=== PATIENT | male | born 1955 | race Caucasian/White ===

== ENCOUNTER 2017-06-18 14:30 | Inpatient (IN) | payer MEDICARE, MEDICAID ==
[2017-06-18 15:28] LABS: Albumin * 3.9 gm/dl (3.4-5.0); Anion Gap 24.6 mmol/L (6.8-13.8); BUN/Creatinine Ratio 32.6 (9.0-21.6); Bilirubin, Total 0.6 mg/dL (0.0-1.1); Ca. Corrected For Albumin 9.1 mg/dL (8.4-10.2); Calcium * 9.3 mg/dL (7.9-10.9); Carbon Dioxide 17.2 mmol/L (24-32.6); Total Protein 7.5 gm/dL (6.2-8.2)
[2017-06-18 15:44] LABS: Potassium 6.8 mmol/L (3.4-4.6)
[2017-06-18 15:47] LABS: Urine Bilirubin Negative (NEGATIVE); Urine Blood Negative /ul (NEGATIVE); Urine Ketone 15 mg/dL (NEGATIVE); Urine Nitrite Negative (NEGATIVE); Urine Protein Negative (NEGATIVE); Urine Specific Gravity <=1.005 SP.GR. (1.005-1.030); Urine Urobilinogen Normal (NORMAL)
[2017-06-18] MEDS ORDERED: INSULIN REGULAR, HUMAN 100 UNITS/ML VIAL IV ONE ×2 (15:51→18:24)
[2017-06-18] MEDS ORDERED: INSULIN REGULAR HUMAN REC 100 UNITS in NORMAL SALINE 100 ML IV PRN (15:51)
[2017-06-18] MEDS ORDERED: ALBUTEROL SULFATE 2.5 MG/0.5 ML VIAL.NEB IH SCH (16:00)
[2017-06-18] MEDS ORDERED: ALBUTEROL SULFATE 2.5 MG/0.5 ML VIAL.NEB IH ONE (16:04)
[2017-06-18] MEDS ORDERED: INSULIN REGULAR, HUMAN 100 UNITS/ML VIAL ONE (16:05)
[2017-06-18] MEDS ORDERED: SODIUM POLYSTYRENE SULFON/SORB 15 G/60 ML BTL ONE (16:05)
[2017-06-18 16:09] LABS: Urine Appearance Clear; Urine Bacteria 3+; Urine Color Yellow; Urine RBC 0-5 /hpf (0-5); Urine WBC 0-5 /hpf (0-5)
[2017-06-18] MEDS: SODIUM POLYSTYRENE SULFON/SORB 15 G/60 ML BTL PO ONE ×2 (16:22→16:25)
[2017-06-18] MEDS: NORMAL SALINE 1,000 ML IV ONE ×2 (16:25→17:18)
[2017-06-18] MEDS ORDERED: NORMAL SALINE 1,000 ML IV ONE ×3 (17:18→20:33)
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
[2017-06-18 19:47] LABS: Anion Gap 19.8 mmol/L (6.8-13.8); BUN/Creatinine Ratio 38.7 (9.0-21.6); Calcium * 8.2 mg/dL (7.9-10.9); Carbon Dioxide 13.9 mmol/L (24-32.6); Estimated Creat Clear 42.4; Potassium 4.7 mmol/L (3.4-4.6)
--- NOTE | 2017-06-18 19:54 | HP ---
Chief Complaint - Chief Complaint Date of Service: 06/18/17 Time of Service: 19:42 Chief Complaint: nausea, vomiting History of Present Illness: 62 years old white male came to the ER with reports of nausea and vomiting, he was admitted with DKA and gastroenteritis. PMH significant for Myelodysplastic syndrome, anemia ( Last transfusion Apr 2017), developmental disability, anxiety , muscle pain and prediabetic ( 04/03/17 Last BG 259mg/dl) . pt with developmental disability and poor historian. Information obtained from care home records and brother who was at the bedside. Per brother he was told by care home caregiver that patient was nauseated and vomiting overnight, he was brought to the clinic for a schedule lab test and blood glucose was 1199mg/Dl and K+ 6.8. pt also appear to be confused and was sent to the ER. In ER CT head no acute intra-cranial abnormality, he was given IVF bolus, insulin bolus and initiated Insulin drip. Plan of care discussed with pt brother he verbalized understanding and agrees. - Patient's Past Medical History Patient History - Medical: Anemia, Anxiety, Arthritis, GERD, Hypothyroidism, Osteoarthritis, Seizures - Diagnoses age 11yrs old no episodes in several years, Other - iron overload due to repeated RBC transfusion most recent apr 2017, Urethral stenosis Patient History - Cardiac/Respiratory: No pertinent hx Patient History - Cancer: No Hx of Cancer Patient History - Surgical Procedures: Colonoscopy, EGD Patient History - Other: None - Family History Mother Family History - Medical: Family History - Cardiac/Respiratory: Coronary Heart Disease, Hypertension, Hyperlipidemia Family History - Cancer: No pertinent family hx Father Family History - Medical: , No pertinent hx Family History - Cardiac/Respiratory: Hypertension Family History - Cancer: No pertinent family hx Sister Family History - Cardiac/Respiratory: Aneurysm - Social History Living Situations: other - penitentiary Abuse History: No History of abuse Psych History: Hx of Anxiety Smoking Status: Never smoker Have you smoked in the past 12 months: No Do you dip or chew tobacco: No Patient requests Smoking Cessation Consult: No Alcohol Use: none Drug Use: none - Immunizations Immunizations Up to Date: Yes Review Of Systems (GEN) - Review of Systems Generalized/Overall Review: Present: Weakness EENTM: Present: Other - left ear [place] Respiratory: Present: No Symptoms Reported Cardiac: Present: No Symptoms Reported Abdominal: Present: Nausea Genitourinary: Present: Hesitancy Musculoskeletal: Present: Muscle Pain Neurological: Present: No Symptoms Reported Skin: Present: No Symptoms Reported Immunizations: IMMUNIZATION HX Immunizations Up to Date Yes Allergies/Adverse Reactions: Allergies Allergy/AdvReac Type Severity Reaction Status Date / Time codeine [Codeine] Allergy Unknown Verified 03/26/16 12:29 hydrocodone [Hydrocodone] Allergy Unknown Verified 03/26/16 12:29 morphine Allergy Unknown Verified 03/26/16 12:29 NSAIDS (Non-Steroidal Allergy Unknown Verified 03/26/16 12:29 Anti-Inflamma Opioids - Morphine Analogues Allergy Unknown Verified 03/26/16 12:29 [Opioids-Morphine & Related] oxycodone [Oxycodone] Allergy Unknown Verified 03/26/16 12:29 quinine Allergy Unknown Verified 03/26/16 12:29 risperidone [From Risperdal] Allergy Unknown Verified 03/26/16 12:29 thioridazine HCl Allergy Unknown Verified 03/26/16 12:29 [From Mellaril] aspirin AdvReac Mild REFLUX Verified 03/26/16 12:29 Sulfa (Sulfonamide AdvReac Mild rash Verified 03/26/16 12:29 Antibiotics) [Sulfa(Sulfonamide Antibiotics)] sulfamethoxazole AdvReac Mild RASH Verified 03/26/16 12:29 [From Bactrim] trimethoprim [From Bactrim] AdvReac Mild RASH Verified 03/26/16 12:29 Home Medications: HOME MEDICATIONS Carbamazepine [Carbatrol] 400 mg PO BID 04/14/13 [Last Taken 03/10/16] Docusate Sodium [Stool Softener] 100 mg PO BID 04/14/13 [Last Taken 03/10/16] Folic Acid 1 mg PO DAILY 04/14/13 [Last Taken 03/10/16] PARoxetine HCL [Paxil] 40 mg PO DAILY 04/14/13 [Last Taken 03/10/16] Phenytoin Sodium Extended [Dilantin] 200 mg PO BIDWM 04/14/13 [Last Taken ] Atorvastatin Calcium [Lipitor] 40 mg PO HS 11/25/14 [Last Taken 03/09/16] Buspirone HCl 15 mg PO BID 11/25/14 [Last Taken 03/10/16] Omeprazole [Prilosec] 40 mg PO BID 11/25/14 [Last Taken 03/10/16] QUEtiapine FUMARATE [Seroquel] 25 mg PO QAM 11/25/14 [Last Taken 03/10/16] Doxepin HCl [Sinequan] 20 mg PO HS #60 cap 11/07/15 [Last Taken 03/09/16] Propranolol HCl [Inderal LA] 120 mg PO DAILY #30 cap 11/07/15 [Last Taken ] QUEtiapine FUMARATE [Seroquel] 75 mg PO HS 03/10/16 [Last Taken 03/09/16] Levothyroxine Sodium [Synthroid] 50 mcg PO DAILY@0700 tablet 03/15/16 [Last Taken Unknown] Methenamine Mandelate [Urex] 1 gm PO BID tablet 03/15/16 [Last Taken Unknown] Alendronate Sodium [Fosamax] 70 mg PO .WEEKLY 06/18/17 [Last Taken Unknown] Deferasirox [Jadenu] 360 mg PO BID 06/18/17 [Last Taken Unknown] Lisinopril/Hydrochlorothiazide [Lisinopril-Hctz 10-12.5 mg Tab] 5 mg PO DAILY [Last Taken Unknown] Exam - Exam Vital Signs: Vital Signs - Last Taken Temp 36.7 C 06/18/17 19:00 Pulse 64 06/18/17 19:00 Resp 13 06/18/17 19:00 BP 105/45 06/18/17 19:00 Pulse Ox 94 06/18/17 16:15 Constitutional: Present: Alert, Cooperative, No distress, Morbidly obese, Looks Older than stated age ENT Exam: Present: hard of hearing Eye Exam: bilateral eye: normal inspection Neck: Present: full range of motion Back Exam: Present: normal inspection Breasts: Present: Exam deferred Respiratory: Present: chest non-tender, lungs clear, normal breath sounds, no respiratory distress Cardiovascular/Chest: Present: normal peripheral pulses, regular rate, rhythm, no chest tenderness, no edema, systolic murmur Peripheral Pulses: dorsalis-pedis (R): 3+, dorsalis-pedis (L): 3+ Abdomen: Present: Normal bowel sounds, soft, nontender, nondistended, no rebound tenderness, no hepatospenomegaly, no masses, obese /Rectal: Present: Exam deferred Extremity: Present: normal range of motion, non-tender, normal inspection, no pedal edema, no calf tenderness Skin Exam: Present: warm/dry Lymphatic: Present: no adenopathy Neurologic: Present: alert, other - exciteable. Appearance: Present: disheveled Thoughts: Present: no apparent hallucination Diagnostic Studies: Abnormal Lab Results 06/18/17 Range/Units 17:15 Random Glucose 1209 H* (70-110) mg/dL Laboratory Results pCO2 31.8 mmHg (35.0-48.0) L 06/18/17 16:30 pO2 78.2 mmHg (83.0-108.0) L 06/18/17 16:30 HCO3 13.1 mmol/L (21.0-28.0) L 06/18/17 16:30 Total CO2 14.1 mmol/L (19.0-24.0) L 06/18/17 16:30 Base Excess -13.3 mmol/L (-2.0-3.0) L 06/18/17 16:30 ABG pH 7.23 (7.35-7.45) L 06/18/17 16:30 ABG O2 Sat (Measured) 93.5 % (94.0-98.0) L 06/18/17 16:30 Sodium 131 mmol/L (132-142) L 06/18/17 13:38 Plasma Sodium 149 mmol/L (130-142) H 06/18/17 13:38 Potassium 6.8 mmol/L (3.4-4.6) H* 06/18/17 13:38 Chloride 96 mmol/L (97-106) L 06/18/17 13:38 Carbon Dioxide 17.2 mmol/L (24-32.6) L 06/18/17 13:38 Anion Gap 24.6 mmol/L (6.8-13.8) H 06/18/17 13:38 BUN 58 mg/dL (6-23) H 06/18/17 13:38 Creatinine 1.78 mg/dL (0.4-1.4) H 06/18/17 13:38 Est GFR (Non-Af Amer) 42 mL/min (60-130) L D 06/18/17 13:38 BUN/Creatinine Ratio 32.6 (9.0-21.6) H 06/18/17 13:38 Random Glucose 1209 mg/dL (70-110) H* 06/18/17 17:15 Calcium 9.3 mg/dL (7.9-10.9) 06/18/17 13:38 Calcium Adj for Albumin 9.1 mg/dL (8.4-10.2) 06/18/17 13:38 Total Bilirubin 0.6 mg/dL (0.0-1.1) 06/18/17 13:38 AST 24 U/L (0-48) 06/18/17 13:38 ALT 52 U/L (19-67) 06/18/17 13:38 Alkaline Phosphatase 189 U/L (50-170) H 06/18/17 13:38 Total Protein 7.5 gm/dL (6.2-8.2) 06/18/17 13:38 Albumin 3.9 gm/dl (3.4-5.0) 06/18/17 13:38 Urine Color Yellow 06/18/17 15:30 Urine Appearance Clear 06/18/17 15:30 Urine pH 6.0 pH (5.0-7.0) 06/18/17 15:30 Ur Specific [place] <=1.005 SP.GR. (1.005-1.030) 06/18/17 15:30 Urine Protein Negative mg/dL (NEGATIVE) 06/18/17 15:30 Urine Glucose (UA) >=1000 mg/dL (NEGATIVE) H 06/18/17 15:30 Urine Ketones 15 mg/dL (NEGATIVE) 06/18/17 15:30 Urine Blood Negative /ul (NEGATIVE) 06/18/17 15:30 Urine Nitrate Negative (NEGATIVE) 06/18/17 15:30 Urine Bilirubin Negative mg/dl (NEGATIVE) 06/18/17 15:30 Urine Urobilinogen Normal EU/dl (NORMAL) 06/18/17 15:30 Ur Leukocyte Esterase Negative /ul (NEGATIVE) 06/18/17 15:30 Urine RBC 0-5 /hpf (0-5) 06/18/17 15:30 Urine WBC 0-5 /hpf (0-5) 06/18/17 15:30 Ur Epithelial Cells None seen /hpf (0-5) 06/18/17 15:30 Urine Bacteria 3+ (NONE) H 06/18/17 15:30 Urine Culture Comments No culture indicated 06/18/17 15:30 Serum Ketones Positive - 20mg/dl (NEGATIVE) H 06/18/17 13:38 Influenza Type A Ag Negative (NEGATIVE) 06/18/17 15:27 Influenza Type B Ag Negative (NEGATIVE) 06/18/17 15:27 CT Head: No acute changes CT ABD: Abnormal bowel gas pattern suggestive colitis/proctitis Assessment/Plan - Narrative Narrative: DKA On adm BG 1199mg/dl and serum ketones 20 In ER Insulin 10 units Bolus given x2 Aggressive IVF bolus, then NS 0.9% 250ml/hr until adequately diuresis Monitor BMP Q2hr. mag, phos Q6h Telemetry monitoring Acute renal failure- likely due to decreased oral intake and reports of vomiting On adm Bun/ Cre 58/1.78--->60/1.55 continue to monitor and IVF Dehydration Plan same as #2 Hypertension On adm BP 110/63 Continue to monitor VS Myelodysplastic syndrome Pt is followed by major account representative in [place] Anemia SP transfusion Apr 2017 pt is following with Sales Representative [employer] in [place] Code status: GI ppx: protonix VTE ppx:SCD and ambulate Time 50 minutes, previous records reviewed and case discussed with pt brother and Dr Novoa - Assessment/Plan (1) Diabetes mellitus with ketoacidosis and lactic acidosis but without coma Problem: Acute (2) Acute renal failure Problem: Acute Qualifiers: Acute renal failure type: unspecified Qualified Code(s): N17.9 - Acute kidney failure, unspecified (3) Dehydration Problem: Acute (4) Hypertension Problem: Chronic Qualifiers: Hypertension type: essential hypertension Qualified Code(s): I10 - Essential (primary) hypertension (5) Myelodysplasia (myelodysplastic syndrome) Problem: Chronic (6) Anemia Problem: Chronic Qualifiers: 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
[2017-06-18] MEDS ORDERED: ONDANSETRON HCL/PF 2 MG/ML VIAL IV PRN (20:33)
[2017-06-18] MEDS: NORMAL SALINE 1,000 ML IV PRN (20:56)
[2017-06-18] MEDS ORDERED: PANTOPRAZOLE SODIUM 40 MG in NORMAL SALINE 100 ML IV SCH (21:00)
[2017-06-18 21:41] LABS: Anion Gap 17.2 mmol/L (6.8-13.8); BUN/Creatinine Ratio 42.5 (9.0-21.6); Calcium * 8.1 mg/dL (7.9-10.9); Carbon Dioxide 17.4 mmol/L (24-32.6); Estimated Creat Clear 49.1; Potassium 4.6 mmol/L (3.4-4.6)
[2017-06-19 00:40] LABS: Anion Gap 16.2 mmol/L (6.8-13.8); BUN/Creatinine Ratio 45.2 (9.0-21.6); Calcium * 7.9 mg/dL (7.9-10.9); Carbon Dioxide 18.3 mmol/L (24-32.6); Estimated Creat Clear 57.2; Potassium 4.5 mmol/L (3.4-4.6)
[2017-06-19] MEDS: NORMAL SALINE 1,000 ML IV PRN ×2 (01:02→05:05)
[2017-06-19 02:24] LABS: Anion Gap 13.9 mmol/L (6.8-13.8); BUN/Creatinine Ratio 43.2 (9.0-21.6); Calcium * 7.9 mg/dL (7.9-10.9); Carbon Dioxide 18.1 mmol/L (24-32.6); Estimated Creat Clear 59.3
[2017-06-19 04:22] LABS: BUN/Creatinine Ratio 47.9 (9.0-21.6); Calcium * 7.5 mg/dL (7.9-10.9); Magnesium 1.6 mg/dL (1.2-2.8); Phosphorus 3.7 mg/dL (2.2-4.2)
[2017-06-19 06:26] LABS: Mean Cell Volume 107.3 fl (78-100); Mean Corpuscular Hemoglobin 34.8 pg (27-31); Mean Corpuscular Hgb Conc 32.4 g/dl (32-36); Mean Platelet Volume 9.8 fl (6.0-9.5); Platelet Count 422 K/mm3 (150-450); Red Blood Count 1.64 M/mm3 (4.7-6.0); Red Cell Distribution Width 24.8 % (11.5-14.0); White Blood Count 6.8 K/mm3 (4.0-10.5)
[2017-06-19 06:31] LABS: Hematocrit 17.6 % (42.0-52.0); Hemoglobin 5.7 gm/dL (13.5-18.0)
[2017-06-19] MEDS ORDERED: ACETAMINOPHEN 325 MG TABLET PO PRN (06:31)
[2017-06-19] MEDS ORDERED: diphenhydrAMINE HCL 50 MG/ML VIAL IV PRN (06:31)
[2017-06-19] MEDS ORDERED: FUROSEMIDE 10 MG/ML VIAL IV PRN (06:31)
[2017-06-19 06:32] LABS: Total Cells Counted 100
[2017-06-19 06:34] LABS: BUN/Creatinine Ratio 45.1 (9.0-21.6); Calcium * 7.2 mg/dL (7.9-10.9); Carbon Dioxide 17.6 mmol/L (24-32.6); Estimated Creat Clear 72.3; Potassium 3.6 mmol/L (3.4-4.6)
[2017-06-19] MEDS: 0.5 NORMAL SALINE 1,000 ML IV PRN ×2 (06:43→10:57)
[2017-06-19 06:53] LABS: Anisocytosis 3+; Band 24 % (0-2.0); Eosinophil 4 % (0-3); Hypochromia 2+; Immature Granulocyte 1 (0-1); Lymphocyte 12 % (20-51); Macrocytosis 2+; Neutrophil 59 % (42-75); Platelet Estimate Normal (NORMAL)
[2017-06-19] MEDS: busPIRone HCL 5 MG TABLET PO SCH ×2 (08:16→20:08)
[2017-06-19] MEDS: LEVOTHYROXINE SODIUM 50 MCG TABLET PO SCH (08:16)
[2017-06-19] MEDS: PROPRANOLOL HCL 60 MG CAPSULE.SA PO SCH (08:17)
[2017-06-19] MEDS: PHENYTOIN SODIUM EXTENDED 100 MG CAPSULE PO SCH ×2 (08:17→16:25)
[2017-06-19] MEDS: FOLIC ACID 1 MG TABLET PO SCH (08:17)
[2017-06-19] MEDS: HYDROCHLOROTHIAZIDE 12.5 MG CAPSULE PO SCH (08:17)
[2017-06-19] MEDS: DOCUSATE SODIUM 100 MG CAPSULE PO SCH ×2 (08:17→20:07)
[2017-06-19] MEDS: METHENAMINE MANDELATE 1 GM TABLET PO SCH ×2 (08:18→20:09)
[2017-06-19] MEDS: QUEtiapine FUMARATE 25 MG TABLET PO SCH ×2 (08:18→20:08)
[2017-06-19] MEDS: PANTOPRAZOLE SODIUM 40 MG TABLET.EC PO SCH ×2 (08:18→20:07)
[2017-06-19] MEDS: PARoxetine HCL 20 MG TABLET PO SCH (08:18)
[2017-06-19] MEDS: LISINOPRIL 10 MG TABLET PO SCH (08:18)
[2017-06-19] MEDS: carBAMazepine 200 MG TABLET PO SCH ×2 (08:18→20:09)
[2017-06-19] MEDS ORDERED: NON-FORMULARY 1 DOSE DOSE (Lisinopril/Hydrochlorothiazide [Lisinopril-Hctz 10-12.5 Mg Tab] PO SCH (09:00)
[2017-06-19 10:27] LABS: BUN/Creatinine Ratio 40.9 (9.0-21.6); Calcium * 7.4 mg/dL (7.9-10.9); Carbon Dioxide 17.5 mmol/L (24-32.6); Estimated Creat Clear 74.7; Potassium 3.5 mmol/L (3.4-4.6)
[2017-06-19 10:32] LABS: Hemoglobin A1C 12.3 % (4.00-6.0)
[2017-06-19] MEDS: DEFERASIROX 360 MG PO SCH ×2 (11:19→20:10)
[2017-06-19] MEDS: POTASSIUM CHLORIDE 20 MEQ in DEXTROSE 5%-0.5 NORMAL SALINE 1,000 ML IV SCH (13:10)
[2017-06-19] MEDS: CALCIUM POLYCARBOPHIL 625 MG TABLET PO SCH ×2 (13:12→16:26)
[2017-06-19 14:29] LABS: BUN/Creatinine Ratio 34.4 (9.0-21.6); Carbon Dioxide 18.4 mmol/L (24-32.6); Estimated Creat Clear 73.1; Potassium 3.4 mmol/L (3.4-4.6)
[2017-06-19 18:24] LABS: Anion Gap 14.5 mmol/L (6.8-13.8); BUN/Creatinine Ratio 27.7 (9.0-21.6); Calcium * 7.3 mg/dL (7.9-10.9); Carbon Dioxide 18.9 mmol/L (24-32.6); Estimated Creat Clear 65.1; Potassium 3.4 mmol/L (3.4-4.6)
[2017-06-19] MEDS: ATORVASTATIN CALCIUM 40 MG TABLET PO SCH (20:08)
[2017-06-19] MEDS: TOPIRAMATE 50 MG TABLET PO SCH (20:08)
[2017-06-19] MEDS: DOXEPIN HCL 10 MG CAPSULE PO SCH (20:09)
--- NOTE | 2017-06-19 20:22 | PN ---
Subjective - Date and Time Seen Date: 06/19/17 Time: 20:00 Subjective Narrative: patient seen today sitting up in chair, pt stated he was feeling much better and his belly wasn't hurting and no longer nauseated. Objective - Review of Systems Generalized/Overall Review: Reports: No Symptoms Reported EENTM: Reports: No Symptoms Reported Respiratory: Reports: No Symptoms Reported Cardiac: Reports: No Symptoms Reported Abdominal: Reports: Nausea Genitourinary Symptoms: Reports: No Symptoms Reported Musculoskeletal Complaints: Reports: No Symptoms Reported Neurological: Reports: Other - excitability Skin: Reports: No Symptoms Reported Endocrine: Reports: No Symptoms Reported - Vitals Vitals: Last Vital Signs Temp 36.7 C 06/19/17 19:14 Pulse 72 06/19/17 19:14 Resp 18 06/19/17 19:14 BP 139/55 06/19/17 19:14 Pulse Ox 97 06/19/17 19:14 - Abnormal Lab Findings Abnormal Lab Findings: Abnormal Lab Results 06/18/17 06/19/17 06/19/17 Range/Units 21:22 00:24 02:00 RBC (4.7-6.0) M/mm3 Hgb (13.5-18.0) gm/dL Hct (42.0-52.0) % MCV (78-100) fl MCH (27-31) pg RDW (11.5-14.0) % MPV (6.0-9.5) fl Band Neuts % (Manual) (0-2.0) % Lymphocytes % (Manual) (20-51) % Eosinophils % (Manual) (0-3) % Lymphocytes # (Manual) (1.5-3.5) k/mm3 Sodium (132-142) mmol/L Plasma Sodium 144 H 147 H 144 H (130-142) mmol/L Chloride 107 H 112 H 112 H (97-106) mmol/L Carbon Dioxide 17.4 L 18.3 L 18.1 L (24-32.6) mmol/L Anion Gap 17.2 H 16.2 H 13.9 H (6.8-13.8) mmol/L BUN 57 H 52 H 48 H (6-23) mg/dL Est GFR (Non-Af Amer) 58 L (60-130) mL/min BUN/Creatinine Ratio 42.5 H 45.2 H 43.2 H (9.0-21.6) Random Glucose 516 H* 413 H 353 H (70-110) mg/dL Hemoglobin A1c (4.00-6.0) % Calcium (7.9-10.9) mg/dL 06/19/17 06/19/17 06/19/17 Range/Units 04:00 06:05 06:22 RBC 1.64 L (4.7-6.0) M/mm3 Hgb 5.7 L* D (13.5-18.0) gm/dL Hct 17.6 L* D (42.0-52.0) % MCV 107.3 H (78-100) fl MCH 34.8 H (27-31) pg RDW 24.8 H (11.5-14.0) % MPV 9.8 H (6.0-9.5) fl Band Neuts % (Manual) 24 H (0-2.0) % Lymphocytes % (Manual) 12 L (20-51) % Eosinophils % (Manual) 4 H (0-3) % Lymphocytes # (Manual) 0.8 L (1.5-3.5) k/mm3 Sodium 143 H (132-142) mmol/L Plasma Sodium 147 H 145 H (130-142) mmol/L Chloride 112 H 113 H (97-106) mmol/L Carbon Dioxide 18.0 L 17.6 L (24-32.6) mmol/L Anion Gap 17.0 H 15.0 H (6.8-13.8) mmol/L BUN 45 H 41 H (6-23) mg/dL Est GFR (Non-Af Amer) (60-130) mL/min BUN/Creatinine Ratio 47.9 H 45.1 H (9.0-21.6) Random Glucose 332 H 310 H (70-110) mg/dL Hemoglobin A1c (4.00-6.0) % Calcium 7.5 L 7.2 L (7.9-10.9) mg/dL 06/19/17 06/19/17 06/19/17 Range/Units 10:08 10:08 14:15 RBC (4.7-6.0) M/mm3 Hgb (13.5-18.0) gm/dL Hct (42.0-52.0) % MCV (78-100) fl MCH (27-31) pg RDW (11.5-14.0) % MPV (6.0-9.5) fl Band Neuts % (Manual) (0-2.0) % Lymphocytes % (Manual) (20-51) % Eosinophils % (Manual) (0-3) % Lymphocytes # (Manual) (1.5-3.5) k/mm3 Sodium (132-142) mmol/L Plasma Sodium (130-142) mmol/L Chloride 111 H 108 H (97-106) mmol/L Carbon Dioxide 17.5 L 18.4 L (24-32.6) mmol/L Anion Gap 15.0 H 14.0 H (6.8-13.8) mmol/L BUN 36 H 31 H (6-23) mg/dL Est GFR (Non-Af Amer) (60-130) mL/min BUN/Creatinine Ratio 40.9 H 34.4 H (9.0-21.6) Random Glucose 215 H D 309 H D (70-110) mg/dL Hemoglobin A1c 12.3 H (4.00-6.0) % Calcium 7.4 L 7.0 L (7.9-10.9) mg/dL 06/19/17 Range/Units 18:14 RBC (4.7-6.0) M/mm3 Hgb (13.5-18.0) gm/dL Hct (42.0-52.0) % MCV (78-100) fl MCH (27-31) pg RDW (11.5-14.0) % MPV (6.0-9.5) fl Band Neuts % (Manual) (0-2.0) % Lymphocytes % (Manual) (20-51) % Eosinophils % (Manual) (0-3) % Lymphocytes # (Manual) (1.5-3.5) k/mm3 Sodium (132-142) mmol/L Plasma Sodium (130-142) mmol/L Chloride (97-106) mmol/L Carbon Dioxide 18.9 L (24-32.6) mmol/L Anion Gap 14.5 H (6.8-13.8) mmol/L BUN 28 H (6-23) mg/dL Est GFR (Non-Af Amer) (60-130) mL/min BUN/Creatinine Ratio 27.7 H (9.0-21.6) Random Glucose 299 H (70-110) mg/dL Hemoglobin A1c (4.00-6.0) % Calcium 7.3 L (7.9-10.9) mg/dL - Exam Constitutional: Present: Cooperative, No distress, Obese ENT Exam: Present: hearing grossly normal Neck: Present: non-tender, full range of motion, supple, normal inspection Respiratory: Present: chest non-tender, lungs clear, normal breath sounds, no respiratory distress Cardiovascular/Chest: Present: normal peripheral pulses, regular rate, rhythm, no chest tenderness, no edema Abdomen: Present: Normal bowel sounds, soft, nontender, nondistended, no rebound tenderness /Rectal: Present: Exam deferred Extremity: Present: normal range of motion, non-tender, normal inspection, no pedal edema Skin Exam: Present: normal color, warm/dry Neurologic: Present: alert Appearance: Present: appropriate appearance Eye contact: Present: good eye contact, normal speech Thoughts: Present: no apparent hallucination Assessment/Plan Plan Narrative: DKA On adm BG 1199mg/dl and serum ketones 20 In ER kayexalate and Insulin 10 units Bolus given x2 Aggressive IVF bolus, then NS 0.9% 250ml/hr until adequately diuresis Per protocol IVF switched currently KCL 20meq D5 o.45NS Continue with insulin drip, anticipating anion gap closing Monitor BMP Q4hr. Telemetry monitoring Metabolic acidosis- Likely due to DKA Plan same as above Acute renal failure- likely due to decreased oral intake and reports of vomiting On adm Bun/ Cre 58/1.78--->60/1.55 ---->28/1.01 continue to monitor BMP and and continue with IVF Dehydration Plan same as #2 Hypertension On adm BP 110/63---> 139/55 Continue to monitor VS Myelodysplastic syndrome Pt is followed by golf course starter in [place] Acute on chronic Anemia- likely due to hemodilution SP transfusion Apr 2017 pt is following with Reprographics Associate in [place] On adm hgb/ Hct--> 5.7/17.6 Transfusion PRBC and repeat H/H 1hr post transfusion Iron overload- chronic transfusion Continue with home dose of jadenu Code status:Full GI ppx: protonix VTE ppx:SCD and ambulate Time 20 minutes, case discussed with Dr Novoa - Problems/Diagnosis (1) Diabetes mellitus with ketoacidosis and lactic acidosis but without coma Problem: Acute (2) Acute renal failure Problem: Acute Qualifiers: Acute renal failure type: unspecified Qualified Code(s): N17.9 - Acute kidney failure, unspecified (3) Dehydration Problem: Acute (4) Hypertension Problem: Chronic Qualifiers: Hypertension type: essential hypertension Qualified Code(s): I10 - Essential (primary) hypertension (5) Myelodysplasia (myelodysplastic syndrome) Problem: Chronic (6) Anemia Problem: Chronic Qualifiers: 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 (8) Metabolic acidosis Problem: Acute (9) Iron overload due to repeated red blood cell transfusions Problem: Chronic
[2017-06-19 20:36] LABS: Hematocrit 29.3 % (42.0-52.0); Hemoglobin 9.7 gm/dL (13.5-18.0)
[2017-06-19 22:43] LABS: Anion Gap 17.4 mmol/L (6.8-13.8); Calcium * 7.5 mg/dL (7.9-10.9); Estimated Creat Clear 68.5; Potassium 3.4 mmol/L (3.4-4.6)
[2017-06-20 02:59] LABS: Anion Gap 13.5 mmol/L (6.8-13.8); Calcium * 7.1 mg/dL (7.9-10.9); Carbon Dioxide 19.9 mmol/L (24-32.6); Estimated Creat Clear 68.5; Potassium 3.4 mmol/L (3.4-4.6)
[2017-06-20] MEDS ORDERED: INSULIN GLARGINE,HUM.REC.ANLOG 100 UNITS/ML VIAL SC SCH (03:45)
[2017-06-20] MEDS: INSULIN LISPRO 100 UNITS/ML VIAL SC SCH ×4 (08:10→20:54)
[2017-06-20] MEDS: LEVOTHYROXINE SODIUM 50 MCG TABLET PO SCH (08:13)
[2017-06-20] MEDS: CALCIUM POLYCARBOPHIL 625 MG TABLET PO SCH ×3 (08:14→17:33)
[2017-06-20] MEDS: PYRIDOXINE HCL (VITAMIN B6) 25 MG TABLET PO SCH (08:14)
[2017-06-20] MEDS: PHENYTOIN SODIUM EXTENDED 100 MG CAPSULE PO SCH ×2 (08:15→17:34)
[2017-06-20] MEDS: PANTOPRAZOLE SODIUM 40 MG TABLET.EC PO SCH ×2 (08:15→20:38)
[2017-06-20] MEDS: METHENAMINE MANDELATE 1 GM TABLET PO SCH ×2 (08:15→20:37)
[2017-06-20] MEDS: PARoxetine HCL 20 MG TABLET PO SCH (08:15)
[2017-06-20] MEDS: busPIRone HCL 5 MG TABLET PO SCH ×2 (08:15→20:41)
[2017-06-20] MEDS: LIOTHYRONINE SODIUM 5 MCG TABLET PO SCH (08:15)
[2017-06-20] MEDS: carBAMazepine 200 MG TABLET PO SCH ×2 (08:15→20:40)
[2017-06-20] MEDS: HYDROCHLOROTHIAZIDE 12.5 MG CAPSULE PO SCH (08:16)
[2017-06-20] MEDS: PROPRANOLOL HCL 60 MG CAPSULE.SA PO SCH (08:16)
[2017-06-20] MEDS: DOCUSATE SODIUM 100 MG CAPSULE PO SCH ×2 (08:16→20:43)
[2017-06-20] MEDS: TOPIRAMATE 50 MG TABLET PO SCH ×2 (08:17→20:42)
[2017-06-20] MEDS: FOLIC ACID 1 MG TABLET PO SCH (08:17)
[2017-06-20] MEDS: QUEtiapine FUMARATE 25 MG TABLET PO SCH ×2 (08:17→20:39)
[2017-06-20] MEDS: LISINOPRIL 10 MG TABLET PO SCH (08:17)
[2017-06-20] MEDS: MULTIVITAMINS 1 CAP CAPSULE PO SCH (08:17)
[2017-06-20] MEDS: DEFERASIROX 360 MG PO SCH ×2 (08:18→20:46)
[2017-06-20 08:49] LABS: Hematocrit 29.3 % (42.0-52.0); Hemoglobin 9.8 gm/dL (13.5-18.0); Mean Cell Volume 98.7 fl (78-100); Mean Corpuscular Hgb Conc 33.4 g/dl (32-36); Neutrophil # 3.4 K/mm3 (1.3-6.0); Neutrophil % 69.9 % (42-75.0); Platelet Count 326 K/mm3 (150-450); Red Blood Count 2.97 M/mm3 (4.7-6.0); Red Cell Distribution Width 25.3 % (11.5-14.0); White Blood Count 4.8 K/mm3 (4.0-10.5)
[2017-06-20 08:57] LABS: Anion Gap 12.9 mmol/L (6.8-13.8); BUN/Creatinine Ratio 19.4 (9.0-21.6); Calcium * 7.3 mg/dL (7.9-10.9); Carbon Dioxide 20.3 mmol/L (24-32.6); Estimated Creat Clear 63.9; Potassium 3.2 mmol/L (3.4-4.6)
[2017-06-20] MEDS: INSULIN GLARGINE,HUM.REC.ANLOG 100 UNITS/ML VIAL SC SCH ×2 (10:23→20:53)
[2017-06-20] MEDS: GLIMEPIRIDE 4 MG TABLET PO SCH ×2 (10:24→20:42)
[2017-06-20] MEDS: POTASSIUM CHLORIDE 20 MEQ in DEXTROSE 5%-0.5 NORMAL SALINE 1,000 ML IV SCH (10:26)
[2017-06-20] MEDS: Ubidecarenone [Coenzyme Q10] 100 MG PO SCH (10:48)
[2017-06-20 10:57] LABS: Anion Gap 15.1 mmol/L (6.8-13.8); BUN/Creatinine Ratio 18.6 (9.0-21.6); Calcium * 7.3 mg/dL (7.9-10.9); Carbon Dioxide 18.9 mmol/L (24-32.6); Estimated Creat Clear 67.8
[2017-06-20 14:52] LABS: Anion Gap 12.8 mmol/L (6.8-13.8); BUN/Creatinine Ratio 19.4 (9.0-21.6); Calcium * 7.4 mg/dL (7.9-10.9); Carbon Dioxide 19.9 mmol/L (24-32.6); Estimated Creat Clear 70.7; Potassium 3.7 mmol/L (3.4-4.6)
[2017-06-20 19:33] LABS: Anion Gap 15.3 mmol/L (6.8-13.8); BUN/Creatinine Ratio 19.3 (9.0-21.6); Calcium * 7.2 mg/dL (7.9-10.9); Carbon Dioxide 22.1 mmol/L (24-32.6); Estimated Creat Clear 74.7; Potassium 3.4 mmol/L (3.4-4.6)
[2017-06-20] MEDS: DOXEPIN HCL 10 MG CAPSULE PO SCH (20:44)
[2017-06-20] MEDS: ATORVASTATIN CALCIUM 40 MG TABLET PO SCH (20:47)
--- NOTE | 2017-06-20 23:43 | PN ---
Subjective - Date and Time Seen Date: 06/20/17 Time: 23:43 Subjective Narrative: patient seen sitting up in chair , he stated he had a snack and was feeling good. Objective - Review of Systems Generalized/Overall Review: Reports: No Symptoms Reported EENTM: Reports: No Symptoms Reported Respiratory: Reports: No Symptoms Reported Cardiac: Reports: No Symptoms Reported Abdominal: Reports: No Symptoms Reported Genitourinary Symptoms: Reports: No Symptoms Reported Neurological: Reports: No Symptoms Reported Skin: Reports: No Symptoms Reported Endocrine: Reports: No Symptoms Reported - Vitals Vitals: Last Vital Signs Temp 36.4 C L 06/20/17 23:22 Pulse 71 06/20/17 23:22 Resp 16 06/20/17 23:22 BP 135/68 06/20/17 23:22 Pulse Ox 98 06/20/17 23:22 - Abnormal Lab Findings Abnormal Lab Findings: Abnormal Lab Results 06/20/17 06/20/17 06/20/17 Range/Units 02:38 08:45 08:45 RBC 2.97 L (4.7-6.0) M/mm3 Hgb 9.8 L (13.5-18.0) gm/dL Hct 29.3 L (42.0-52.0) % MCH 33.0 H (27-31) pg RDW 25.3 H (11.5-14.0) % MPV 10.0 H (6.0-9.5) fl Immature Gran % (Auto) 0.60 H (0.001-0.429) % Lymphocytes % 15.1 L (20-51) % Eosinophils % 6.6 H (0.0-3.0) % Lymphocytes # 0.7 L (1.5-3.5) k/mm3 Potassium 3.2 L (3.4-4.6) mmol/L Carbon Dioxide 19.9 L 20.3 L (24-32.6) mmol/L Anion Gap (6.8-13.8) mmol/L BUN/Creatinine Ratio 24.0 H (9.0-21.6) Random Glucose 368 H D 439 H (70-110) mg/dL Calcium 7.1 L 7.3 L (7.9-10.9) mg/dL 06/20/17 06/20/17 06/20/17 Range/Units 10:48 14:43 16:38 RBC (4.7-6.0) M/mm3 Hgb (13.5-18.0) gm/dL Hct (42.0-52.0) % MCH (27-31) pg RDW (11.5-14.0) % MPV (6.0-9.5) fl Immature Gran % (Auto) (0.001-0.429) % Lymphocytes % (20-51) % Eosinophils % (0.0-3.0) % Lymphocytes # (1.5-3.5) k/mm3 Potassium 3.0 L (3.4-4.6) mmol/L Carbon Dioxide 18.9 L 19.9 L 22.1 L (24-32.6) mmol/L Anion Gap 15.1 H 15.3 H (6.8-13.8) mmol/L BUN/Creatinine Ratio (9.0-21.6) Random Glucose 260 H D 209 H 235 H (70-110) mg/dL Calcium 7.3 L 7.4 L 7.2 L (7.9-10.9) mg/dL - Exam Constitutional: Present: Alert, Cooperative, No distress ENT Exam: Present: hearing grossly normal Neck: Present: full range of motion Respiratory: Present: chest non-tender, lungs clear, normal breath sounds, no respiratory distress Cardiovascular/Chest: Present: normal peripheral pulses, regular rate, rhythm, no chest tenderness, no gallop, no JVD, no murmur Abdomen: Present: Normal bowel sounds, soft, nontender, nondistended, no rebound tenderness /Rectal: Present: Exam deferred Extremity: Present: normal range of motion, non-tender, normal inspection, no pedal edema, lower extremity edema Skin Exam: Present: normal color, warm/dry, no cyanosis Neurologic: Present: alert, motor weakness Appearance: Present: disheveled Eye contact: Present: good eye contact, normal speech Thoughts: Present: no apparent hallucination Assessment/Plan Plan Narrative: Acute on chronic Anemia- likely due to hemodilution SP transfusion Apr 2017 pt is following with Passenger Screener in [place] On adm hgb/ Hct--> 5.7/17.6 S/P Transfusion PRBC and repeat H/H 1hr post transfusion Iron overload- chronic transfusion Continue with home dose of jadenu DKA- resolved On adm BG 1199mg/dl and serum ketones 20 Anion gap closed, Lantus 10 units SC and D/C insulin drip monitor blood glucouse Q2hrs then AC+HS Initiated on Glimepiride 4mg BID and lantus 15mg BID, continue with sliding scale insulin. Pt was adequately diuresis then IVF D/C Monitor BMP daily Telemetry monitoring Metabolic acidosis- Likely due to DKA- resolved Plan same as above Acute renal failure- Resolved likely due to decreased oral intake and reports of vomiting On adm Bun/ Cre 58/1.78--->60/1.55 ---->28/1.01 D/C IVF Dehydration- resolved Plan same as #2 Hypertension- stable Continue to monitor VS Myelodysplastic syndrome Pt is followed by clinical informaticist in [place] Code status:Full GI ppx: protonix VTE ppx:SCD and ambulate Time 20 minutes, case discussed with Dr Novoa - Problems/Diagnosis (1) Diabetes mellitus with ketoacidosis and lactic acidosis but without coma Problem: Resolved (2) Acute renal failure Problem: Acute Qualifiers: Acute renal failure type: unspecified Qualified Code(s): N17.9 - Acute kidney failure, unspecified (3) Hypertension Problem: Chronic Qualifiers: Hypertension type: essential hypertension Qualified Code(s): I10 - Essential (primary) hypertension (4) Myelodysplasia (myelodysplastic syndrome) Problem: Chronic (5) Anemia Problem: Chronic Qualifiers: Anemia type: bone marrow failure Bone marrow failure anemia type: other bone marrow failure Qualified Code(s): D61.89 - Other specified aplastic anemias and other bone marrow failure syndromes (6) Urethral stenosis Problem: Chronic (7) Metabolic acidosis Problem: Resolved (8) Iron overload due to repeated red blood cell transfusions Problem: Chronic
--- NOTE | 2017-06-21 06:27 | PN ---
Subjective - Date and Time Seen Date: 06/21/17 Time: 06:22 Subjective Narrative: patient was seen today no acute distress, he was cooperative with having his blood drawn. He denies discomfort and stated his feet ever swollen and tender when touched. Objective - Review of Systems Generalized/Overall Review: Reports: No Symptoms Reported EENTM: Reports: No Symptoms Reported Respiratory: Reports: No Symptoms Reported Cardiac: Reports: No Symptoms Reported Abdominal: Reports: No Symptoms Reported Genitourinary Symptoms: Reports: No Symptoms Reported Musculoskeletal Complaints: Reports: Muscle Pain, Other - foot pain Neurological: Reports: No Symptoms Reported Skin: Reports: No Symptoms Reported Endocrine: Reports: No Symptoms Reported - Vitals Vitals: Last Vital Signs Temp 36.4 C L 06/20/17 23:22 Pulse 73 06/21/17 02:00 Resp 16 06/20/17 23:22 BP 135/68 06/20/17 23:22 Pulse Ox 98 06/20/17 23:22 - Abnormal Lab Findings Abnormal Lab Findings: Abnormal Lab Results 06/20/17 06/20/17 06/20/17 Range/Units 08:45 08:45 10:48 RBC 2.97 L (4.7-6.0) M/mm3 Hgb 9.8 L (13.5-18.0) gm/dL Hct 29.3 L (42.0-52.0) % MCH 33.0 H (27-31) pg RDW 25.3 H (11.5-14.0) % MPV 10.0 H (6.0-9.5) fl Immature Gran % (Auto) 0.60 H (0.001-0.429) % Lymphocytes % 15.1 L (20-51) % Eosinophils % 6.6 H (0.0-3.0) % Lymphocytes # 0.7 L (1.5-3.5) k/mm3 Potassium 3.2 L 3.0 L (3.4-4.6) mmol/L Carbon Dioxide 20.3 L 18.9 L (24-32.6) mmol/L Anion Gap 15.1 H (6.8-13.8) mmol/L Random Glucose 439 H 260 H D (70-110) mg/dL Calcium 7.3 L 7.3 L (7.9-10.9) mg/dL 06/20/17 06/20/17 Range/Units 14:43 16:38 RBC (4.7-6.0) M/mm3 Hgb (13.5-18.0) gm/dL Hct (42.0-52.0) % MCH (27-31) pg RDW (11.5-14.0) % MPV (6.0-9.5) fl Immature Gran % (Auto) (0.001-0.429) % Lymphocytes % (20-51) % Eosinophils % (0.0-3.0) % Lymphocytes # (1.5-3.5) k/mm3 Potassium (3.4-4.6) mmol/L Carbon Dioxide 19.9 L 22.1 L (24-32.6) mmol/L Anion Gap 15.3 H (6.8-13.8) mmol/L Random Glucose 209 H 235 H (70-110) mg/dL Calcium 7.4 L 7.2 L (7.9-10.9) mg/dL - Exam Constitutional: Present: Alert, Oriented x3, Cooperative, No distress ENT Exam: Present: normal ENT inspection Neck: Present: full range of motion Breasts: Present: Exam deferred Respiratory: Present: chest non-tender, lungs clear, normal breath sounds, no respiratory distress Cardiovascular/Chest: Present: normal peripheral pulses, regular rate, rhythm, no chest tenderness, no gallop Abdomen: Present: Normal bowel sounds, soft, nontender, nondistended, no rebound tenderness, obese /Rectal: Present: Exam deferred Extremity: Present: normal range of motion, normal inspection, pedal edema, swelling Skin Exam: Present: normal color, warm/dry, no cyanosis Neurologic: Present: alert, other - excitability Eye contact: Present: cooperative, good eye contact Thoughts: Present: no apparent hallucination Assessment/Plan Plan Narrative: Diabetes Will need insulin upon discharge currently on Lantus 15unit BID pt is from [facility] and per attending he will need placement as facility cannot accommodate pt on insulin. Continue with Glimepiride 4mg BID and Lantus 15mg BID, continue with sliding scale insulin. DKA- resolved On adm BG 1199mg/dl and serum ketones 20 Anion gap closed, Lantus 10 units SC and D/C insulin drip monitor blood glucouse Q2hrs then AC+HS Initiated on Glimepiride 4mg BID and lantus 15mg BID, continue with sliding scale insulin. 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 [place] On adm hgb/ Hct--> 5.7/17.6 S/P Transfusion PRBC and repeat H/H 1hr post transfusion CBC in am Iron overload- chronic transfusion Continue with home dose of jadenu Metabolic acidosis- Likely due to DKA- resolved Plan same as above Acute renal failure- Resolved likely due to decreased oral intake and reports of vomiting On adm Bun/ Cre 58/1.78--->60/1.55 ---->28/1.01 D/C IVF Dehydration- resolved Plan same as #2 Hypertension- stable Continue to monitor VS Myelodysplastic syndrome Pt is followed by database marketing specialist in [place] Code status:Full GI ppx: protonix VTE ppx:SCD and ambulate Time 15 minutes, case discussed with Dr Novoa - Problems/Diagnosis (1) Diabetes mellitus with ketoacidosis and lactic acidosis but without coma Problem: Resolved (2) Acute renal failure Problem: Acute Qualifiers: Acute renal failure type: unspecified Qualified Code(s): N17.9 - Acute kidney failure, unspecified (3) Hypertension Problem: Chronic Qualifiers: Hypertension type: essential hypertension Qualified Code(s): I10 - Essential (primary) hypertension (4) Myelodysplasia (myelodysplastic syndrome) Problem: Chronic (5) Anemia Problem: Chronic Qualifiers: Anemia type: bone marrow failure Bone marrow failure anemia type: other bone marrow failure Qualified Code(s): D61.89 - Other specified aplastic anemias and other bone marrow failure syndromes (6) Urethral stenosis Problem: Chronic (7) Metabolic acidosis Problem: Resolved (8) Iron overload due to repeated red blood cell transfusions Problem: Chronic
[2017-06-21] MEDS ORDERED: FUROSEMIDE 10 MG/ML VIAL IV ONE (06:31)
[2017-06-21 06:32] LABS: Anion Gap 14.6 mmol/L (6.8-13.8); BUN/Creatinine Ratio 21.3 (9.0-21.6); Calcium * 7.5 mg/dL (7.9-10.9); Carbon Dioxide 21.6 mmol/L (24-32.6); Estimated Creat Clear 73.9; Hematocrit 27.9 % (42.0-52.0); Hemoglobin 9.3 gm/dL (13.5-18.0); Mean Cell Volume 96.5 fl (78-100); Mean Corpuscular Hemoglobin 32.2 pg (27-31); Mean Corpuscular Hgb Conc 33.3 g/dl (32-36); Mean Platelet Volume 10.2 fl (6.0-9.5); NRBC# 0.1 k/mm3 (0-1); Neutrophil # 3.7 K/mm3 (1.3-6.0); Neutrophil % 70.7 % (42-75.0); Platelet Count 287 K/mm3 (150-450); Potassium 3.2 mmol/L (3.4-4.6); Red Blood Count 2.89 M/mm3 (4.7-6.0); Red Cell Distribution Width 25.2 % (11.5-14.0); White Blood Count 5.2 K/mm3 (4.0-10.5)
[2017-06-21] MEDS: INSULIN LISPRO 100 UNITS/ML VIAL SC SCH ×2 (07:17→11:33)
[2017-06-21] MEDS: LEVOTHYROXINE SODIUM 50 MCG TABLET PO SCH (07:18)
[2017-06-21] MEDS: METHENAMINE MANDELATE 1 GM TABLET PO SCH (08:40)
[2017-06-21] MEDS: FOLIC ACID 1 MG TABLET PO SCH (08:40)
[2017-06-21] MEDS: PYRIDOXINE HCL (VITAMIN B6) 25 MG TABLET PO SCH (08:40)
[2017-06-21] MEDS: LIOTHYRONINE SODIUM 5 MCG TABLET PO SCH (08:40)
[2017-06-21] MEDS: PHENYTOIN SODIUM EXTENDED 100 MG CAPSULE PO SCH (08:40)
[2017-06-21] MEDS: LISINOPRIL 10 MG TABLET PO SCH (08:40)
[2017-06-21] MEDS: DOCUSATE SODIUM 100 MG CAPSULE PO SCH (08:41)
[2017-06-21] MEDS: carBAMazepine 200 MG TABLET PO SCH (08:41)
[2017-06-21] MEDS: PANTOPRAZOLE SODIUM 40 MG TABLET.EC PO SCH (08:41)
[2017-06-21] MEDS: busPIRone HCL 5 MG TABLET PO SCH (08:41)
[2017-06-21] MEDS: QUEtiapine FUMARATE 25 MG TABLET PO SCH (08:41)
[2017-06-21] MEDS: PARoxetine HCL 20 MG TABLET PO SCH (08:41)
[2017-06-21] MEDS: MULTIVITAMINS 1 CAP CAPSULE PO SCH (08:41)
[2017-06-21] MEDS: HYDROCHLOROTHIAZIDE 12.5 MG CAPSULE PO SCH (08:42)
[2017-06-21] MEDS: PROPRANOLOL HCL 60 MG CAPSULE.SA PO SCH (08:42)
[2017-06-21] MEDS: INSULIN GLARGINE,HUM.REC.ANLOG 100 UNITS/ML VIAL SC SCH (08:42)
[2017-06-21] MEDS: GLIMEPIRIDE 4 MG TABLET PO SCH (08:42)
[2017-06-21] MEDS: Ubidecarenone [Coenzyme Q10] 100 MG PO SCH (08:45)
[2017-06-21] MEDS: TOPIRAMATE 50 MG TABLET PO SCH (08:50)
[2017-06-21] MEDS ORDERED: ERGOCALCIFEROL 50000 UNIT TABLET PO SCH (09:00)
[2017-06-21] MEDS: DEFERASIROX 360 MG PO SCH (10:13)
[2017-06-21] MEDS: CALCIUM POLYCARBOPHIL 625 MG TABLET PO SCH (11:32)
[2017-06-21 12:04] VITALS: BP 111/64
--- NOTE | 2017-06-21 13:28 | DS ---
(1) Diabetes mellitus with ketoacidosis and lactic acidosis but without coma Problem: Resolved (2) Type 2 diabetes mellitus Problem: Acute Description of Stay: ADMISSION DATE: 06/18/2017 DISCHARGE DATE: 06/21/2017 ADMISSION HPI by DION Pimentel: 62 years old white male came to the ER with reports of nausea and vomiting, he was admitted with DKA and gastroenteritis. PMH significant for Myelodysplastic syndrome, anemia ( Last transfusion Apr 2017), developmental disability, anxiety , muscle pain and prediabetic ( 04/03/17 Last BG 259mg/dl) . pt with developmental disability and poor historian. Information obtained from residential records and brother who was at the bedside. Per brother he was told by residential caregiver that patient was nauseated and vomiting overnight, he was brought to the clinic for a schedule lab test and blood glucose was 1199mg/Dl and K+ 6.8. pt also appear to be confused and was sent to the ER. In ER CT head no acute intra-cranial abnormality, he was given IVF bolus, insulin bolus and initiated Insulin drip. Plan of care discussed with pt brother he verbalized understanding and agrees. HOSPITAL COURSE: The patient was admitted to the hospital for DKA secondary to severely uncontrolled type 2 diabetes. The patient was treated with aggressive IV fluid hydration and an insulin drip. After his DKA resolved and his anion gap closed , the patient was transitioned to subcutaneous insulin. However, after multiple discussions with the patients staff at his residential ([facility]), it was determined that the patient cannot return home on insulin and so he was started on 3 oral diabetic medications as documented below under new medications. The patient was also given a prescription for a glucometer and all testing supplies. [facility] will check his blood sugars at least once daily in the morning. The patient will need a repeat hemoglobin A1c in approximately 3 months. The patient was discharged back to his residential in stable condition and instructed to follow-up with his primary care physician within one week. FOLLOW-UP APPOINTMENTS: - PCP within 1 week NEW OR CHANGED MEDICATIONS: -Glimepiride 4mg PO BID with meals -Metformin 1000mg PO BID with meals -Januvia 100mg PO daily DISCONTINUED MEDICATIONS: None RADIOLOGY REPORTS: Head CT without contrast on 06/18/2017 showed: No acute intracranial hemorrhage or mass effect. Flat and upright abdominal x-ray on 06/18/2017 showed: Abnormal bowel gas pattern suggestive of colitis/proctitis. Nonspecific dilated loop of sigmoid colon. PA and lateral chest x-ray on 06/18/2017 showed: Hypoventilatory changes. No focal acute finding. The coordination of care and discharge process provided by me on the day of discharge for Marc Edwards was greater than 30 minutes. This time consisted of direct patient care which included counseling, coordinating and discussing the patients multiple medical conditions as well as time spent coordinating and ensuring that the patient had an appropriate discharge plan in place. Procedures Performed: none Results and Findings: Laboratory Tests 06/18/17 06/18/17 06/18/17 13:38 13:38 15:27 WBC RBC Hgb Hct MCV MCH MCHC RDW Plt Count MPV Immature Gran % (Auto) Immature Gran # (Auto) Neutrophils % pCO2 pO2 HCO3 Total CO2 Base Excess ABG pH ABG O2 Sat (Measured) Sodium 131 L Plasma Sodium 149 H Potassium 6.8 H* Chloride 96 L Carbon Dioxide 17.2 L Anion Gap 24.6 H BUN 58 H Creatinine 1.78 H Est GFR (Non-Af Amer) 42 L D BUN/Creatinine Ratio 32.6 H Random Glucose 1199 H* Mean Blood Glucose Hemoglobin A1c Calcium 9.3 Calcium Adj for Albumin 9.1 Phosphorus Magnesium Total Bilirubin 0.6 AST 24 ALT 52 Alkaline Phosphatase 189 H B-Natriuretic Peptide Total Protein 7.5 Albumin 3.9 Urine Color Urine Appearance Urine pH Ur Specific [place] Urine Protein Urine Glucose (UA) Urine Ketones Urine Blood Urine Nitrate Urine Bilirubin Urine Urobilinogen Ur Leukocyte Esterase Urine RBC Urine WBC Ur Epithelial Cells Urine Bacteria Urine Culture Comments Stool Occult Blood Serum Ketones Positive - 20mg/dl H Influenza Type A Ag Negative Influenza Type B Ag Negative 06/18/17 06/18/17 06/18/17 15:30 16:30 17:15 WBC RBC Hgb Hct MCV MCH MCHC RDW Plt Count MPV Immature Gran % (Auto) Immature Gran # (Auto) Neutrophils % pCO2 31.8 L pO2 78.2 L HCO3 13.1 L Total CO2 14.1 L Base Excess -13.3 L ABG pH 7.23 L ABG O2 Sat (Measured) 93.5 L Sodium Plasma Sodium Potassium Chloride Carbon Dioxide Anion Gap BUN Creatinine Est GFR (Non-Af Amer) BUN/Creatinine Ratio Random Glucose 1209 H* Mean Blood Glucose Hemoglobin A1c Calcium Calcium Adj for Albumin Phosphorus Magnesium Total Bilirubin AST ALT Alkaline Phosphatase B-Natriuretic Peptide Total Protein Albumin Urine Color Yellow Urine Appearance Clear Urine pH 6.0 Ur Specific [place] <=1.005 Urine Protein Negative Urine Glucose (UA) >=1000 H Urine Ketones 15 Urine Blood Negative Urine Nitrate Negative Urine Bilirubin Negative Urine Urobilinogen Normal Ur Leukocyte Esterase Negative Urine RBC 0-5 Urine WBC 0-5 Ur Epithelial Cells None seen Urine Bacteria 3+ H Urine Culture Comments No culture indicated Stool Occult Blood Serum Ketones Influenza Type A Ag Influenza Type B Ag 06/18/17 06/18/17 06/19/17 19:22 21:22 00:24 WBC RBC Hgb Hct MCV MCH MCHC RDW Plt Count MPV Immature Gran % (Auto) Immature Gran # (Auto) Neutrophils % pCO2 pO2 HCO3 Total CO2 Base Excess ABG pH ABG O2 Sat (Measured) Sodium 134 137 Plasma Sodium 144 H 144 H Potassium 4.7 H D 4.6 Chloride 105 107 H Carbon Dioxide 13.9 L 17.4 L 18.3 L Anion Gap 19.8 H 17.2 H 16.2 H BUN 60 H 57 H Creatinine 1.55 H 1.34 Est GFR (Non-Af Amer) 49 L 58 L BUN/Creatinine Ratio 38.7 H 42.5 H Random Glucose 717 H* D 516 H* 413 H Mean Blood Glucose Hemoglobin A1c Calcium 8.2 8.1 Calcium Adj for Albumin Phosphorus Magnesium Total Bilirubin AST ALT Alkaline Phosphatase B-Natriuretic Peptide Total Protein Albumin Urine Color Urine Appearance Urine pH Ur Specific [place] Urine Protein Urine Glucose (UA) Urine Ketones Urine Blood Urine Nitrate Urine Bilirubin Urine Urobilinogen Ur Leukocyte Esterase Urine RBC Urine WBC Ur Epithelial Cells Urine Bacteria Urine Culture Comments Stool Occult Blood Serum Ketones Influenza Type A Ag Influenza Type B Ag 06/19/17 06/19/17 06/19/17 02:00 04:00 06:05 WBC RBC Hgb Hct MCV MCH MCHC RDW Plt Count MPV Immature Gran % (Auto) Immature Gran # (Auto) Neutrophils % pCO2 pO2 HCO3 Total CO2 Base Excess ABG pH ABG O2 Sat (Measured) Sodium Plasma Sodium Potassium Chloride Carbon Dioxide 18.1 L 18.0 L 17.6 L Anion Gap 13.9 H 17.0 H 15.0 H BUN Creatinine Est GFR (Non-Af Amer) BUN/Creatinine Ratio Random Glucose 353 H 332 H 310 H Mean Blood Glucose Hemoglobin A1c Calcium Calcium Adj for Albumin Phosphorus 3.7 Magnesium 1.6 Total Bilirubin AST ALT Alkaline Phosphatase B-Natriuretic Peptide Total Protein Albumin Urine Color Urine Appearance Urine pH Ur Specific [place] Urine Protein Urine Glucose (UA) Urine Ketones Urine Blood Urine Nitrate Urine Bilirubin Urine Urobilinogen Ur Leukocyte Esterase Urine RBC Urine WBC Ur Epithelial Cells Urine Bacteria Urine Culture Comments Stool Occult Blood Serum Ketones Influenza Type A Ag Influenza Type B Ag 06/19/17 06/19/17 06/19/17 06:22 10:08 10:08 WBC 6.8 RBC 1.64 L Hgb 5.7 L* D Hct 17.6 L* D MCV 107.3 H MCH 34.8 H MCHC 32.4 RDW 24.8 H Plt Count 422 MPV 9.8 H Immature Gran % (Auto) Immature Gran # (Auto) Neutrophils % pCO2 pO2 HCO3 Total CO2 Base Excess ABG pH ABG O2 Sat (Measured) Sodium Plasma Sodium Potassium Chloride Carbon Dioxide 17.5 L Anion Gap 15.0 H BUN Creatinine Est GFR (Non-Af Amer) BUN/Creatinine Ratio Random Glucose 215 H D Mean Blood Glucose 324 Hemoglobin A1c 12.3 H Calcium Calcium Adj for Albumin Phosphorus Magnesium Total Bilirubin AST ALT Alkaline Phosphatase B-Natriuretic Peptide Total Protein Albumin Urine Color Urine Appearance Urine pH Ur Specific [place] Urine Protein Urine Glucose (UA) Urine Ketones Urine Blood Urine Nitrate Urine Bilirubin Urine Urobilinogen Ur Leukocyte Esterase Urine RBC Urine WBC Ur Epithelial Cells Urine Bacteria Urine Culture Comments Stool Occult Blood Serum Ketones Influenza Type A Ag Influenza Type B Ag 06/19/17 06/19/17 06/19/17 14:15 18:14 22:00 WBC RBC Hgb Hct MCV MCH MCHC RDW Plt Count MPV Immature Gran % (Auto) Immature Gran # (Auto) Neutrophils % pCO2 pO2 HCO3 Total CO2 Base Excess ABG pH ABG O2 Sat (Measured) Sodium Plasma Sodium Potassium Chloride Carbon Dioxide 18.4 L 18.9 L 18.0 L Anion Gap 14.0 H 14.5 H 17.4 H BUN Creatinine Est GFR (Non-Af Amer) BUN/Creatinine Ratio Random Glucose 309 H D 299 H 255 H Mean Blood Glucose Hemoglobin A1c Calcium 7.3 L 7.5 L Calcium Adj for Albumin Phosphorus Magnesium Total Bilirubin AST ALT Alkaline Phosphatase B-Natriuretic Peptide Total Protein Albumin Urine Color Urine Appearance Urine pH Ur Specific [place] Urine Protein Urine Glucose (UA) Urine Ketones Urine Blood Urine Nitrate Urine Bilirubin Urine Urobilinogen Ur Leukocyte Esterase Urine RBC Urine WBC Ur Epithelial Cells Urine Bacteria Urine Culture Comments Stool Occult Blood Serum Ketones Influenza Type A Ag Influenza Type B Ag 06/20/17 06/20/17 06/20/17 02:38 08:45 10:48 WBC RBC Hgb Hct MCV MCH MCHC RDW Plt Count MPV Immature Gran % (Auto) Immature Gran # (Auto) Neutrophils % pCO2 pO2 HCO3 Total CO2 Base Excess ABG pH ABG O2 Sat (Measured) Sodium Plasma Sodium Potassium 3.4 3.2 L 3.0 L Chloride Carbon Dioxide 19.9 L 20.3 L 18.9 L Anion Gap 13.5 12.9 15.1 H BUN Creatinine Est GFR (Non-Af Amer) BUN/Creatinine Ratio Random Glucose 368 H D 439 H 260 H D Mean Blood Glucose Hemoglobin A1c Calcium Calcium Adj for Albumin Phosphorus Magnesium Total Bilirubin AST ALT Alkaline Phosphatase B-Natriuretic Peptide Total Protein Albumin Urine Color Urine Appearance Urine pH Ur Specific [place] Urine Protein Urine Glucose (UA) Urine Ketones Urine Blood Urine Nitrate Urine Bilirubin Urine Urobilinogen Ur Leukocyte Esterase Urine RBC Urine WBC Ur Epithelial Cells Urine Bacteria Urine Culture Comments Stool Occult Blood Serum Ketones Influenza Type A Ag Influenza Type B Ag 06/20/17 06/20/17 06/21/17 14:43 16:38 01:08 WBC RBC Hgb Hct MCV MCH MCHC RDW Plt Count MPV Immature Gran % (Auto) Immature Gran # (Auto) Neutrophils % pCO2 pO2 HCO3 Total CO2 Base Excess ABG pH ABG O2 Sat (Measured) Sodium Plasma Sodium Potassium 3.7 D 3.4 Chloride Carbon Dioxide 19.9 L 22.1 L Anion Gap 12.8 15.3 H BUN Creatinine Est GFR (Non-Af Amer) BUN/Creatinine Ratio Random Glucose 209 H 235 H Mean Blood Glucose Hemoglobin A1c Calcium Calcium Adj for Albumin Phosphorus Magnesium Total Bilirubin AST ALT Alkaline Phosphatase B-Natriuretic Peptide Total Protein Albumin Urine Color Urine Appearance Urine pH Ur Specific [place] Urine Protein Urine Glucose (UA) Urine Ketones Urine Blood Urine Nitrate Urine Bilirubin Urine Urobilinogen Ur Leukocyte Esterase Urine RBC Urine WBC Ur Epithelial Cells Urine Bacteria Urine Culture Comments Stool Occult Blood Negative Serum Ketones Influenza Type A Ag Influenza Type B Ag 06/21/17 06/21/17 06/21/17 06:00 06:20 06:20 WBC 5.2 RBC 2.89 L Hgb 9.3 L Hct 27.9 L MCV 96.5 MCH 32.2 H MCHC 33.3 RDW 25.2 H Plt Count 287 MPV 10.2 H Immature Gran % (Auto) 1.00 H Immature Gran # (Auto) 0.05 H Neutrophils % 70.7 pCO2 pO2 HCO3 Total CO2 Base Excess ABG pH ABG O2 Sat (Measured) Sodium 138 Plasma Sodium 139 Potassium 3.2 L Chloride 105 Carbon Dioxide 21.6 L Anion Gap 14.6 H BUN 19 Creatinine 0.89 Est GFR (Non-Af Amer) 93 BUN/Creatinine Ratio 21.3 Random Glucose 185 H Mean Blood Glucose Hemoglobin A1c Calcium 7.5 L Calcium Adj for Albumin Phosphorus Magnesium Total Bilirubin AST ALT Alkaline Phosphatase B-Natriuretic Peptide 258 H Total Protein Albumin Urine Color Urine Appearance Urine pH Ur Specific [place] Urine Protein Urine Glucose (UA) Urine Ketones Urine Blood Urine Nitrate Urine Bilirubin Urine Urobilinogen Ur Leukocyte Esterase Urine RBC Urine WBC Ur Epithelial Cells Urine Bacteria Urine Culture Comments Stool Occult Blood Serum Ketones Influenza Type A Ag Influenza Type B Ag Discharge Disposition: Home self care Disposition: Home self-care Condition: Stable Discharge Activity: Activity as tolerated Discharge Diet: Consistent carbs Problem Oriented Discharge Instructions to Patient/Family: Hyperglycemia, Easy- to-Read, Type 2 Diabetes Mellitus, Adult, [id number] Additional Patient Instructions (free text): Please make TCM appointment unless intermediate discharge. Thank you! Marixa @ ext: [phone]. Follow up with Patricia Powell on 10:45am. on 07-03-172017 in the Clinic. Check blood sugars BID. Please record and take to f/u appointment with PCP. Please make copies of diabetic diet for sister and brother. Follow-up with PCP within 1 week Prescriptions (Any new or edited meds): Glimepiride [Amaryl] 4 mg PO BIDAC #60 tablet metFORMIN HCL [Metformin HCl ER] 1,000 mg PO BIDAC #120 tab.er.24h sitaGLIPtin PHOSPHATE [Januvia] 100 mg PO DAILY #30 tab Complete Home Medications List: Complete Home Medication List: Carbamazepine [Carbatrol] 400 mg PO BID 04/14/13 Docusate Sodium [Stool Softener] 100 mg PO BID 04/14/13 Folic Acid 1 mg PO DAILY 04/14/13 PARoxetine HCL [Paxil] 60 mg PO HS 04/14/13 Phenytoin Sodium Extended [Dilantin] 200 mg PO BIDWM 04/14/13 Atorvastatin Calcium [Lipitor] 40 mg PO HS 11/25/14 Buspirone HCl 15 mg PO BID 11/25/14 Omeprazole [Prilosec] 40 mg PO BID 11/25/14 QUEtiapine FUMARATE [Seroquel] 25 mg PO QAM 11/25/14 Doxepin HCl [Sinequan] 20 mg PO HS #60 cap 11/07/15 Propranolol HCl [Inderal LA] 120 mg PO DAILY #30 cap 11/07/15 QUEtiapine FUMARATE [Seroquel] 75 mg PO HS 03/10/16 Levothyroxine Sodium [Synthroid] 50 mcg PO DAILY@0700 tablet 03/15/16 Methenamine Mandelate [Urex] 1 gm PO BID tablet 03/15/16 Alendronate Sodium [Fosamax] 70 mg PO .WEEKLY 06/18/17 Deferasirox [Jadenu] 360 mg PO BID 06/18/17 Lisinopril/Hydrochlorothiazide [Lisinopril-Hctz 10-12.5 mg Tab] 5 mg PO DAILY Calcium Polycarbophil [Fiber Laxative] 1,250 mg PO TID 06/19/17 Ergocalciferol (Vitamin D2) [Vitamin D2] 50,000 unit PO .WEEKLY 06/19/17 Liothyronine Sodium [Cytomel] 5 mcg PO DAILY 06/19/17 Multivitamin [One Daily Multivitamin] 1 cap PO DAILY 06/19/17 Pyridoxine HCl [Vitamin B-6] 50 mg PO DAILY 06/19/17 Topiramate [Topamax] 100 mg PO BID 06/19/17 Ubidecarenone [Coenzyme Q10] 100 mg PO DAILY 06/19/17 Glimepiride [Amaryl] 4 mg PO BIDAC #60 tablet 06/21/17 metFORMIN HCL [Metformin HCl ER] 1,000 mg PO BIDAC #120 tab.er.24h 06/21/17 sitaGLIPtin PHOSPHATE [Januvia] 100 mg PO DAILY #30 tab 06/21/17
== END 2017-06-21 15:48 | disposition home or self-care (01) | DRG 637 ==
LOC: ER 14:30 → SCU 17:14 → MS 06-19 15:45
PROVIDERS: ADMIT Internal Medicine; ATTEND Internal Medicine
PROC: 4A033R1 Measurement of Arterial Saturation, Peripheral, Percutaneous Approach (ICD-10-PCS; principal; 2017-06-18)
PROC: 30263N1 (ICD-10-PCS; 2017-06-21)
DX: E11.10 Type 2 diabetes mellitus with ketoacidosis without coma (principal); D61.89 Other specified aplastic anemias and other bone marrow failure syndromes; N17.9 Acute kidney failure, unspecified; D46.9 Myelodysplastic syndrome, unspecified; E86.0 Dehydration; I10 Essential (primary) hypertension; E03.9 Hypothyroidism, unspecified

== ENCOUNTER 2017-06-26 14:50 | Inpatient (IN) | payer MEDICARE, MEDICAID ==
--- NOTE | 2017-06-26 15:54 | ERNOTE ---
Date of Service: 06/26/17 Time Seen by Provider: 06/26/17 15:52 Stated Complaint: COUGH/WEAKNESS/DIARRHEA Source: patient, family, RN notes reviewed, past records Exam Limitations: other - confusion Immunizations: IMMUNIZATION HX Immunizations Up to Date Yes History of Influenza Vaccine Yes Allergies/Adverse Reactions: Allergies codeine [Codeine] Allergy (Unknown, Verified 03/26/16 12:29) hydrocodone [Hydrocodone] Allergy (Unknown, Verified 03/26/16 12:29) morphine Allergy (Unknown, Verified 03/26/16 12:29) NSAIDS (Non-Steroidal Anti-Inflamma Allergy (Unknown, Verified 03/26/16 12:29) Opioids - Morphine Analogues [Opioids-Morphine & Related] Allergy (Unknown, Verified 03/26/16 12:29) oxycodone [Oxycodone] Allergy (Unknown, Verified 03/26/16 12:29) quinine Allergy (Unknown, Verified 03/26/16 12:29) risperidone [From Risperdal] Allergy (Unknown, Verified 03/26/16 12:29) thioridazine HCl [From Mellaril] Allergy (Unknown, Verified 03/26/16 12:29) aspirin Adverse Reaction (Mild, Verified 03/26/16 12:29) REFLUX Sulfa (Sulfonamide Antibiotics) [Sulfa(Sulfonamide Antibiotics)] Adverse Reaction (Mild, Verified 03/26/16 12:29) rash sulfamethoxazole [From Bactrim] Adverse Reaction (Mild, Verified 03/26/16 12:29) RASH trimethoprim [From Bactrim] Adverse Reaction (Mild, Verified 03/26/16 12:29) RASH Home Medications: HOME MEDICATIONS Carbamazepine [Carbatrol] 400 mg PO BID 04/14/13 [Last Taken 06/26/17 10:00 400 mg] Docusate Sodium [Stool Softener] 100 mg PO BID 04/14/13 [Last Taken 06/25/17 10: 00] Folic Acid 1 mg PO DAILY 04/14/13 [Last Taken 06/26/17 08:00] PARoxetine HCL [Paxil] 60 mg PO HS 04/14/13 [Last Taken 06/25/17 22:00] Phenytoin Sodium Extended [Dilantin] 200 mg PO BIDWM 04/14/13 [Last Taken 08:00] Atorvastatin Calcium [Lipitor] 40 mg PO HS 11/25/14 [Last Taken 06/25/17 22:00] Buspirone HCl 15 mg PO BID 11/25/14 [Last Taken 06/26/17 10:00] Omeprazole [Prilosec] 40 mg PO BID 11/25/14 [Last Taken 06/26/17 08:00] QUEtiapine FUMARATE [Seroquel] 25 mg PO QAM 11/25/14 [Last Taken 06/26/17 08:00] Doxepin HCl [Sinequan] 20 mg PO HS #60 cap 11/07/15 [Last Taken 06/25/17 22:00] Propranolol HCl [Inderal LA] 120 mg PO DAILY #30 cap 11/07/15 [Last Taken 08:00] QUEtiapine FUMARATE [Seroquel] 75 mg PO HS 03/10/16 [Last Taken 06/25/17 22:00] Levothyroxine Sodium [Synthroid] 50 mcg PO DAILY@0700 tablet 03/15/16 [Last Taken 06/26/17 07:00] Methenamine Mandelate [Urex] 1 gm PO BID tablet 03/15/16 [Last Taken 06/26/17 08:00] Alendronate Sodium [Fosamax] 70 mg PO .WEEKLY 06/18/17 [Last Taken Unknown] Deferasirox [Jadenu] 360 mg PO BID 06/18/17 [Last Taken 06/26/17 08:00] Lisinopril/Hydrochlorothiazide [Lisinopril-Hctz 10-12.5 mg Tab] 5 mg PO DAILY [Last Taken 06/26/17 08:00] Calcium Polycarbophil [Fiber Laxative] 1,250 mg PO TID 06/19/17 [Last Taken Unknown] Ergocalciferol (Vitamin D2) [Vitamin D2] 50,000 unit PO .WEEKLY 06/19/17 [Last Taken Unknown] Liothyronine Sodium [Cytomel] 5 mcg PO DAILY 06/19/17 [Last Taken 06/26/17 08:00 ] Multivitamin [One Daily Multivitamin] 1 cap PO DAILY 06/19/17 [Last Taken 12:00] Pyridoxine HCl [Vitamin B-6] 50 mg PO DAILY 06/19/17 [Last Taken 06/26/17 08:00] Topiramate [Topamax] 100 mg PO BID 06/19/17 [Last Taken 06/26/17 08:00] Ubidecarenone [Coenzyme Q10] 100 mg PO DAILY 06/19/17 [Last Taken 06/26/17 08:00 ] Glimepiride [Amaryl] 4 mg PO BIDAC #60 tablet 06/21/17 [Last Taken 06/26/17 08: 00] sitaGLIPtin PHOSPHATE [Januvia] 100 mg PO DAILY #30 tab 06/21/17 [Last Taken 04/03 08:00] Fiber Laxative 625 mg PO TID 06/26/17 [Last Taken 06/26/17 12:00] Januvia 100 mg PO DAILY 06/26/17 [Last Taken 06/26/17 08:00] metFORMIN HCL [Metformin HCl ER] 500 mg PO BID 06/26/17 [Last Taken 06/26/17 08: 00] - History of Present Ilness Narrative: Marc is a 62 year old male brought to the ED by his brother for a cough, vomiting, and diarrhea that began 3 days ago. He is also reported to have a sore throat, but he is actually concerned about someone seeing white patches in the back of his throat. He was just discharged from the hospital on 06/21 after being admitted for DKA and anemia. The patient is somewhat confused and is a poor historian. He lives in a intermediate and receives services through [facility]. Date (Duration): 06/23/17 Timing: getting worse Frequency/Possible Cause: Reports: unknown cause Associated Symptoms: Reports: cough. Denies: chest pain/soreness, shortness of breath, wheezing, nasal congestion, nasal drainage, lightheadedness, headache, sore throat Prior Treatment: Reports: recently seen, treated by physician, recently hospitalized. Denies: currently on antibiotics Review of Systems - Review of Systems Constitutional: Present: recent illness, malaise, decreased activity level EYE: Present: no symptoms reported ENT: Present: See HPI Respiratory: Present: cough - productive of copious amounts of sputum Cardiology: Absent: chest pain, syncope Gastrointestinal/Abdominal: Present: nausea, vomiting, diarrhea, eating less, drinking less. Absent: abdominal pain Genitourinary: Absent: dysuria, decreased urinary output Musculoskeletal: Absent: muscle pain, joint pain Skin: Absent: rash, lesions Neurological: Absent: headache, dizziness/light-headedness Endocrine: Present: no symptoms reported Hematologic/Lymphatic: Present: easy bruising, easy bleeding Psych: Present: no symptoms reported - Patient's Past Medical History Patient History - Medical: Anemia, Anxiety, Arthritis, GERD, Hypothyroidism, Osteoarthritis, Seizures, Other Patient History - Cardiac/Respiratory: No pertinent hx Patient History - Cancer: No Hx of Cancer Patient History - Surgical Procedures: Colonoscopy, EGD Patient History - Other: None - Family History Mother Family History - Medical: Family History - Cardiac/Respiratory: Coronary Heart Disease, Hypertension, Hyperlipidemia Family History - Cancer: No pertinent family hx Father Family History - Medical: , No pertinent hx Family History - Cardiac/Respiratory: Hypertension Family History - Cancer: No pertinent family hx Sister Family History - Cardiac/Respiratory: Aneurysm - Social History Living Situations: other - intermediate - [facility] Abuse History: No History of abuse Psych History: Hx of Anxiety Alcohol Use: none Drug Use: none - Immunizations Immunizations Up to Date: Yes History of Influenza Vaccine: Yes Physical Exam - Physical Exam General Appearance: Present: wd/wn, alert, other - Ill appearing but in no acute distress, poor hygiene Head Exam: Present: normal inspection Eye Exam: Normal inspection: bilateral Ears, Nose, Throat: Present: normal ENT inspection, normal pharynx. Absent: pharyngeal erythema Neck: Present: normal inspection, nontender, supple Respiratory: Present: no respiratory distress, no accessory muscle use, decreased breath sounds, rhonchi - scattered, other - frequent cough Cardiovascular/Chest: Present: regular rate, rhythm, no murmur Gastrointestinal/Abdominal: Present: nontender, nondistended, soft Neurological Exam: Present: alert, no motor/sensory deficits. Absent: oriented , normal mood/affect Skin Exam: Present: warm/dry, pallor ED Progress - Results and Orders Patient's Lab Results:: I have reviewed the patient's lab results. - Vital Signs Patient's Vital Signs:: I have reviewed the patient's vital signs. Vital Signs: Vital Signs 06/26/17 15:14 Temperature 37.4 C Pulse Rate 70 Respiratory 15 Rate Blood Pressure 153/111 O2 Sat by Pulse 99 Oximetry - Progress/Reassessment Chief Complaint: Upper Respiratory Symptoms Progress:: Unchanged Plan - Plan Plan: Dr. Goyal contacted for admission. Will admit to observation status for IVF and repeat labs d/t acute renal failure as patient is not able to tolerate oral intake d/t vomiting and diarrhea. Patient and his brother are in agreement with plan. Patient has not voided in department and his brother refuses to let him be catheterized, UA pending. Departure Clinical Impression: Vomiting and diarrhea Acute renal failure Qualifiers: Acute renal failure type: unspecified Qualified Code(s): N17.9 - Acute kidney failure, unspecified - Departure Disposition: [facility] Condition: Fair
[2017-06-26 16:43] LABS: Hematocrit 27.6 % (42.0-52.0); Hemoglobin 8.1 gm/dL (13.5-18.0); Mean Corpuscular Hemoglobin 33.5 pg (27-31); Mean Corpuscular Hgb Conc 29.3 g/dl (32-36); Mean Platelet Volume 9.8 fl (6.0-9.5); Platelet Count 411 K/mm3 (150-450); Red Blood Count 2.42 M/mm3 (4.7-6.0); Red Cell Distribution Width 25.3 % (11.5-14.0); White Blood Count 5.5 K/mm3 (4.0-10.5)
[2017-06-26 16:56] LABS: Total Cells Counted 100
[2017-06-26 17:06] LABS: Band 9 % (0-2.0); Eosinophil 4 % (0-3); Lymphocyte 16 % (20-51); Monocyte 2 % (0-9); Neutrophil 69 % (42-75); Neutrophil # 3.8 K/mm3 (1.3-6.0); Platelet Estimate Normal (NORMAL)
[2017-06-26 17:07] LABS: Hypochromia 1+; Microcytosis 2+
[2017-06-26 17:23] LABS: Albumin * 2.2 gm/dl (3.4-5.0); Anion Gap 18.9 mmol/L (6.8-13.8); BUN/Creatinine Ratio 13.6 (9.0-21.6); Bilirubin, Total 0.5 mg/dL (0.0-1.1); Ca. Corrected For Albumin 9.2 mg/dL (8.4-10.2); Calcium * 8.1 mg/dL (7.9-10.9); Carbon Dioxide 17.6 mmol/L (24-32.6); Potassium 4.5 mmol/L (3.4-4.6); Total Protein 6.3 gm/dL (6.2-8.2)
[2017-06-26] MEDS ORDERED: NORMAL SALINE 1,000 ML IV ONE (17:31)
--- NOTE | 2017-06-26 19:55 | HP ---
Chief Complaint - Chief Complaint Date of Service: 06/26/17 Time of Service: 19:49 Chief Complaint: 'Nausea, Vomiting, Diarrhea'. Source of HPI- Pt; unreliable, ERP notes, nursing notes. History of Present Illness: Mr. Edwards is a 62-yr-old WM pt of Dr. Cuba Davis with a PMH of: Aplastic Anemia, Anxiety, BPH, DM Epilepsy, DM II, GERD, HTN, HLD, Hypothyroidism, Hiatal hernia, Hyperlipidemia & Mental Retardation. History is unobtainable from the patient due to prior cognitive delays from MR. Jaswinder resides at a assisted and was brought in by his brother with complaints of cough, vomiting & diarrhea that had gone on for 3 days. At the ED, he was found to have elevated BUN/Creatinine of 38/2.79. He had a white count of 5500 with 9 bands. The chest x-ray did not have any acute findings. The UA is pending. Pt was recently discharged from [facility] on 06/21/16 following Hospitalization for DKA due to uncontrolled DM II and Gastroenteritis. He will be admitted under observation status for acute kidney injury and dehydration. - Patient's Past Medical History Patient History - Medical: Anemia, Anxiety, Arthritis, GERD, Hypothyroidism, Osteoarthritis, Seizures, Other Patient History - Cardiac/Respiratory: No pertinent hx, Hypertension, Hyperlipidemia Patient History - Cancer: No Hx of Cancer Patient History - Surgical Procedures: Colonoscopy, EGD Patient History - Other: None - Family History Mother Family History - Medical: Family History - Cardiac/Respiratory: Coronary Heart Disease, Hypertension, Hyperlipidemia Family History - Cancer: No pertinent family hx Father Family History - Medical: , No pertinent hx Family History - Cardiac/Respiratory: Hypertension Family History - Cancer: No pertinent family hx Sister Family History - Cardiac/Respiratory: Aneurysm - Social History Living Situations: other - assisted - [facility] Abuse History: No History of abuse Psych History: Hx of Anxiety Smoking Status: Never smoker Have you smoked in the past 12 months: No Do you dip or chew tobacco: No Patient requests Smoking Cessation Consult: No Initiate information on Smoking Cessation: No Alcohol Use: none Drug Use: none - Immunizations Immunizations Up to Date: Yes History of Influenza Vaccine: Yes Review Of Systems (GEN) - Review of Systems Additional Comments: ROS unobtainable due to cognitive delays. Immunizations: IMMUNIZATION HX Immunizations Up to Date Yes History of Influenza Vaccine Yes Allergies/Adverse Reactions: Allergies Allergy/AdvReac Type Severity Reaction Status Date / Time codeine [Codeine] Allergy Unknown Verified 03/26/16 12:29 hydrocodone [Hydrocodone] Allergy Unknown Verified 03/26/16 12:29 morphine Allergy Unknown Verified 03/26/16 12:29 NSAIDS (Non-Steroidal Allergy Unknown Verified 03/26/16 12:29 Anti-Inflamma Opioids - Morphine Analogues Allergy Unknown Verified 03/26/16 12:29 [Opioids-Morphine & Related] oxycodone [Oxycodone] Allergy Unknown Verified 03/26/16 12:29 quinine Allergy Unknown Verified 03/26/16 12:29 risperidone [From Risperdal] Allergy Unknown Verified 03/26/16 12:29 thioridazine HCl Allergy Unknown Verified 03/26/16 12:29 [From Mellaril] aspirin AdvReac Mild REFLUX Verified 03/26/16 12:29 Sulfa (Sulfonamide AdvReac Mild rash Verified 03/26/16 12:29 Antibiotics) [Sulfa(Sulfonamide Antibiotics)] sulfamethoxazole AdvReac Mild RASH Verified 03/26/16 12:29 [From Bactrim] trimethoprim [From Bactrim] AdvReac Mild RASH Verified 03/26/16 12:29 Home Medications: HOME MEDICATIONS Carbamazepine [Carbatrol] 400 mg PO BID 04/14/13 [Last Taken 06/26/17 10:00 400 mg] Docusate Sodium [Stool Softener] 100 mg PO BID 04/14/13 [Last Taken 06/25/17 10: 00] Folic Acid 1 mg PO DAILY 04/14/13 [Last Taken 06/26/17 08:00] PARoxetine HCL [Paxil] 60 mg PO HS 04/14/13 [Last Taken 06/25/17 22:00] Phenytoin Sodium Extended [Dilantin] 200 mg PO BIDWM 04/14/13 [Last Taken 08:00] Atorvastatin Calcium [Lipitor] 40 mg PO HS 11/25/14 [Last Taken 06/25/17 22:00] Buspirone HCl 15 mg PO BID 11/25/14 [Last Taken 06/26/17 10:00] Omeprazole [Prilosec] 40 mg PO BID 06/11/15 [Last Taken 06/26/17 08:00] QUEtiapine FUMARATE [Seroquel] 25 mg PO QAM 11/25/14 [Last Taken 06/26/17 08:00] Doxepin HCl [Sinequan] 20 mg PO HS #60 cap 11/07/15 [Last Taken 06/25/17 22:00] Propranolol HCl [Inderal LA] 120 mg PO DAILY #30 cap 11/07/15 [Last Taken 08:00] QUEtiapine FUMARATE [Seroquel] 75 mg PO HS 03/10/16 [Last Taken 06/25/17 22:00] Levothyroxine Sodium [Synthroid] 50 mcg PO DAILY@0700 tablet 03/15/16 [Last Taken 06/26/17 07:00] Methenamine Mandelate [Urex] 1 gm PO BID tablet 03/15/16 [Last Taken 06/26/17 08:00] Alendronate Sodium [Fosamax] 70 mg PO .WEEKLY 06/18/17 [Last Taken Unknown] Deferasirox [Jadenu] 360 mg PO BID 06/18/17 [Last Taken 06/26/17 08:00] Lisinopril/Hydrochlorothiazide [Lisinopril-Hctz 10-12.5 mg Tab] 5 mg PO DAILY [Last Taken 06/26/17 08:00] Calcium Polycarbophil [Fiber Laxative] 1,250 mg PO TID 06/19/17 [Last Taken Unknown] Ergocalciferol (Vitamin D2) [Vitamin D2] 50,000 unit PO .WEEKLY 06/19/17 [Last Taken Unknown] Liothyronine Sodium [Cytomel] 5 mcg PO DAILY 06/19/17 [Last Taken 06/26/17 08:00 ] Multivitamin [One Daily Multivitamin] 1 cap PO DAILY 06/19/17 [Last Taken 12:00] Pyridoxine HCl [Vitamin B-6] 50 mg PO DAILY 06/19/17 [Last Taken 06/26/17 08:00] Topiramate [Topamax] 100 mg PO BID 06/19/17 [Last Taken 06/26/17 08:00] Ubidecarenone [Coenzyme Q10] 100 mg PO DAILY 06/19/17 [Last Taken 06/26/17 08:00 ] Glimepiride [Amaryl] 4 mg PO BIDAC #60 tablet 06/21/17 [Last Taken 06/26/17 08: 00] sitaGLIPtin PHOSPHATE [Januvia] 100 mg PO DAILY #30 tab 06/21/17 [Last Taken 04/03 08:00] Fiber Laxative 625 mg PO TID 06/26/17 [Last Taken 06/26/17 12:00] Januvia 100 mg PO DAILY 06/26/17 [Last Taken 06/26/17 08:00] metFORMIN HCL [Metformin HCl ER] 500 mg PO BID 06/26/17 [Last Taken 06/26/17 08: 00] Exam - Exam Vital Signs: Vital Signs - Last Taken Temp 38.5 C H 06/26/17 18:34 Pulse 72 06/26/17 18:34 Resp 16 06/26/17 18:34 BP 104/51 06/26/17 18:34 Pulse Ox 94 06/26/17 17:45 Constitutional: Present: Alert, Mild distress ENT Exam: Present: normal ENT inspection Neck: Present: non-tender, full range of motion Back Exam: Present: normal inspection Respiratory: Present: lungs clear Cardiovascular/Chest: Present: no edema Abdomen: Present: Normal bowel sounds, soft, nontender /Rectal: Present: Exam deferred Extremity: Present: normal range of motion Skin Exam: Present: warm/dry Neurologic: Present: disoriented x 3 Appearance: Present: impaired insight Eye contact: Present: compulsive, uncooperative Thoughts: Present: incoherent Diagnostic Studies: Laboratory Results WBC 5.5 K/mm3 (4.0-10.5) 06/26/17 16:36 RBC 2.42 M/mm3 (4.7-6.0) L 06/26/17 16:36 Hgb 8.1 gm/dL (13.5-18.0) L 06/26/17 16:36 Hct 27.6 % (42.0-52.0) L 06/26/17 16:36 MCV 114.0 fl (78-100) H 06/26/17 16:36 MCH 33.5 pg (27-31) H 06/26/17 16:36 MCHC 29.3 g/dl (32-36) L 06/26/17 16:36 RDW 25.3 % (11.5-14.0) H 06/26/17 16:36 Plt Count 411 K/mm3 (150-450) 06/26/17 16:36 MPV 9.8 fl (6.0-9.5) H 06/26/17 16:36 Neutrophils % (Manual) 69 % (42-75) 06/26/17 16:36 Band Neuts % (Manual) 9 % (0-2.0) H 06/26/17 16:36 Lymphocytes % (Manual) 16 % (20-51) L 06/26/17 16:36 Monocytes % (Manual) 2 % (0-9) 06/26/17 16:36 Eosinophils % (Manual) 4 % (0-3) H 06/26/17 16:36 Neutrophils # (Manual) 3.8 K/mm3 (1.3-6.0) 06/26/17 16:36 Lymphocytes # (Manual) 0.9 k/mm3 (1.5-3.5) L 06/26/17 16:36 Monocytes # (Manual) 0.1 k/mm3 (0.0-1.0) 06/26/17 16:36 Eosinophils # (Manual) 0.2 k/mm3 (0.0-0.7) 06/26/17 16:36 Platelet Estimate Normal (NORMAL) 06/26/17 16:36 Hypochromasia 1+ 06/26/17 16:36 Microcytosis 2+ 06/26/17 16:36 Sodium 137 mmol/L (132-142) 06/26/17 16:36 Plasma Sodium 138 mmol/L (130-142) 06/26/17 16:36 Potassium 4.5 mmol/L (3.4-4.6) D 06/26/17 16:36 Chloride 105 mmol/L (97-106) 06/26/17 16:36 Carbon Dioxide 17.6 mmol/L (24-32.6) L 06/26/17 16:36 Anion Gap 18.9 mmol/L (6.8-13.8) H 06/26/17 16:36 BUN 38 mg/dL (6-23) H D 06/26/17 16:36 Creatinine 2.79 mg/dL (0.4-1.4) H D 06/26/17 16:36 Est GFR (Non-Af Amer) 25 mL/min (60-130) L D 06/26/17 16:36 BUN/Creatinine Ratio 13.6 (9.0-21.6) 06/26/17 16:36 Random Glucose 157 mg/dL (70-110) H 06/26/17 16:36 Calcium 8.1 mg/dL (7.9-10.9) 06/26/17 16:36 Calcium Adj for Albumin 9.2 mg/dL (8.4-10.2) 06/26/17 16:36 Total Bilirubin 0.5 mg/dL (0.0-1.1) 06/26/17 16:36 AST 124 U/L (0-48) H 06/26/17 16:36 ALT 80 U/L (19-67) H 06/26/17 16:36 Alkaline Phosphatase 134 U/L (50-170) 06/26/17 16:36 Total Protein 6.3 gm/dL (6.2-8.2) 06/26/17 16:36 Albumin 2.2 gm/dl (3.4-5.0) L 06/26/17 16:36 Influenza Type A Ag Negative (NEGATIVE) 06/26/17 16:42 Influenza Type B Ag Negative (NEGATIVE) 06/26/17 16:42 Assessment/Plan - Assessment/Plan (1) Acute renal failure Assessment: Acute kidney injury is likely prerenal due to dehydration. Provide IV fluid hydration.BMP in am. Laboratory Tests 06/20/17 06/20/17 06/21/17 14:43 16:38 06:20 BUN 18 17 19 Creatinine 0.93 0.88 0.89 06/26/17 16:36 BUN 38 H D Creatinine 2.79 H D Problem: Acute Qualifiers: Acute renal failure type: unspecified Qualified Code(s): N17.9 - Acute kidney failure, unspecified (2) Gastroenteritis Assessment: Gastroenteritis likely viral. Has had no other episodes of vomiting or diarrhea since coming to the floor. He was febrile with a temp of 38.5- Collect blood cultures. Will provide symptomatic care with IV fluid and electrolyte replacement. Place on contact precautions. Keep NPO and advance diet as tolerated. Problem: Acute (3) Dehydration Assessment: Monitor vital signs, will place on telemetry, and IV fluid hydration. Problem: Acute (4) Epilepsy Assessment: Place on seizure precaution, continue carbamazepine and Dilantin Problem: Chronic (5) HTN (hypertension) Assessment: Stable-hold lisinopril due to LINDA. Problem: Chronic (6) Type 2 diabetes mellitus Assessment: Monitor BS q 6h while NPO- Hold oral glycemic medications. Problem: Chronic (7) GERD (gastroesophageal reflux disease) Problem: Chronic (8) HLD (hyperlipidemia) Problem: Chronic
[2017-06-26] MEDS ORDERED: NORMAL SALINE 1,000 ML IV PRN (20:37)
[2017-06-26] MEDS: PARoxetine HCL 20 MG TABLET PO SCH (22:47)
[2017-06-26] MEDS: QUEtiapine FUMARATE 25 MG TABLET PO SCH (22:48)
[2017-06-26] MEDS: busPIRone HCL 5 MG TABLET PO SCH (22:48)
[2017-06-26] MEDS: TOPIRAMATE 50 MG TABLET PO SCH (22:48)
[2017-06-26] MEDS ORDERED: DEXTROSE 5%-NORMAL SALINE 1,000 ML IV SCH (23:30)
--- NOTE | 2017-06-27 06:52 | PN ---
Subjective - Date and Time Seen Date: 06/27/17 Time: 06:50 Subjective Narrative: Pt seen this am. He is alert and in no distress. No vomiting with liquids. Nursing report continued diarrhea, No other issues according to nursing, Objective - Vitals Vitals: Last Vital Signs Temp 38.0 C H 06/27/17 03:00 Pulse 72 06/27/17 03:00 Resp 20 06/27/17 03:00 BP 105/51 06/27/17 03:00 Pulse Ox 92 06/27/17 03:00 - Exam Constitutional: Present: Alert, Oriented x3, Cooperative, No distress ENT Exam: Present: normal ENT inspection Neck: Present: non-tender, full range of motion Breasts: Present: Exam deferred Respiratory: Present: lungs clear, no accessory muscle use Cardiovascular/Chest: Present: normal peripheral pulses, regular rate, rhythm, no chest tenderness Abdomen: Present: Normal bowel sounds, soft, nontender /Rectal: Present: Exam deferred Extremity: Present: normal range of motion, non-tender, normal inspection, lower extremity edema - 1-2+ ble pitting edema. Skin Exam: Present: warm/dry, no cyanosis Lymphatic: Present: no adenopathy Neurologic: Present: no motor/sensory deficits, alert, oriented x 3 Appearance: Present: appropriate appearance, appropriate insight Eye contact: Present: cooperative, good eye contact, normal speech Assessment/Plan - Problems/Diagnosis (1) Acute renal failure Problem: Acute Qualifiers: Acute renal failure type: unspecified Qualified Code(s): N17.9 - Acute kidney failure, unspecified Narrative: Initially thought to be pre-renal due to dehydration from vomiting and diarrhea. Received IVF hydration but this am's labs shows worsening Kidney function. IVF dc's due to worsening edema. No lasix as there is no sign of resporatory compromise. Will plan on obtaining renal US in am if no improvement. BMP in am. Laboratory Tests 06/20/17 06/21/17 06/26/17 16:38 06:20 16:36 BUN 17 19 38 H D Creatinine 0.88 0.89 2.79 H D 06/27/17 08:50 BUN 40 H Creatinine 3.77 H D (2) Gastroenteritis Problem: Resolved Narrative: Kept NPO, diet advanced slowly. No other episodes. (3) Aplastic anemia Problem: Acute Narrative: Has hx of Myelodysplastic syndrome and periodically receives blood transfusion. Last Transfusion was April 2017. Will plan to transfuse 2 units. (4) Dehydration Problem: Acute (5) Epilepsy Problem: Chronic Narrative: Place on seizure precaution, continue carbamazepine and Dilantin (6) Type 2 diabetes mellitus Problem: Chronic Narrative: ACHS Accuchecks, consistent carb diet, restart oral glycemic medications. (7) HTN (hypertension) Problem: Chronic (8) GERD (gastroesophageal reflux disease) Problem: Chronic (9) HLD (hyperlipidemia) Problem: Chronic
[2017-06-27] MEDS ORDERED: GLIMEPIRIDE 4 MG TABLET PO SCH (07:00)
[2017-06-27] MEDS ORDERED: DEXTROSE 5%-NORMAL SALINE 1,000 ML IV PRN (08:15)
[2017-06-27] MEDS: PANTOPRAZOLE SODIUM 40 MG TABLET.EC PO SCH ×2 (08:21→17:50)
[2017-06-27] MEDS: LEVOTHYROXINE SODIUM 50 MCG TABLET PO SCH (08:21)
[2017-06-27] MEDS: busPIRone HCL 5 MG TABLET PO SCH ×2 (08:21→20:29)
[2017-06-27] MEDS: CALCIUM POLYCARBOPHIL 625 MG TABLET PO SCH ×3 (08:22→17:50)
[2017-06-27] MEDS: carBAMazepine 200 MG TABLET PO SCH ×4 (08:22→20:30)
[2017-06-27] MEDS: QUEtiapine FUMARATE 25 MG TABLET PO SCH ×2 (08:22→20:28)
[2017-06-27] MEDS: LIOTHYRONINE SODIUM 5 MCG TABLET PO SCH (08:22)
[2017-06-27] MEDS: PHENYTOIN SODIUM EXTENDED 100 MG CAPSULE PO SCH ×2 (08:22→17:51)
[2017-06-27] MEDS: TOPIRAMATE 50 MG TABLET PO SCH (08:22)
[2017-06-27] MEDS: PROPRANOLOL HCL 60 MG CAPSULE.SA PO SCH (08:24)
[2017-06-27 08:59] LABS: Mean Cell Volume 103.9 fl (78-100); Mean Corpuscular Hgb Conc 32.7 g/dl (32-36); Mean Platelet Volume 9.2 fl (6.0-9.5); Platelet Count 520 K/mm3 (150-450); Red Blood Count 2.06 M/mm3 (4.7-6.0); Red Cell Distribution Width 24.9 % (11.5-14.0); White Blood Count 5.7 K/mm3 (4.0-10.5)
[2017-06-27] MEDS ORDERED: NON-FORMULARY 1 DOSE DOSE (Sitagliptin Phosphate [Januvia] 100 MG) PO SCH (09:00)
[2017-06-27] MEDS ORDERED: sitaGLIPtin PHOSPHATE 50 MG TABLET PO SCH (09:00)
[2017-06-27 09:16] LABS: Anion Gap 17.8 mmol/L (6.8-13.8); BUN/Creatinine Ratio 10.6 (9.0-21.6); Calcium * 7.6 mg/dL (7.9-10.9); Estimated Creat Clear 16.8; Potassium 3.8 mmol/L (3.4-4.6)
[2017-06-27 09:17] LABS: Hematocrit 21.4 % (42.0-52.0)
[2017-06-27 09:18] LABS: Total Cells Counted 100
[2017-06-27 10:01] LABS: Band 21 % (0-2.0); Eosinophil 2 % (0-3); Hypochromia 2+; Lymphocyte 15 % (20-51); Macrocytosis 1+; Neutrophil 62 % (42-75); Neutrophil # 3.5 K/mm3 (1.3-6.0); Platelet Estimate Increased (NORMAL); Polychromasia Trace; Schistocytes 2+
[2017-06-27] MEDS: NORMAL SALINE 1,000 ML IV PRN ×2 (11:42→20:34)
[2017-06-27] MEDS: Deferasirox [Jadenu] 360 MG PO SCH (20:29)
[2017-06-27] MEDS: PARoxetine HCL 20 MG TABLET PO SCH (20:29)
--- NOTE | 2017-06-28 06:10 | PN ---
<Roshni Wright - Last Filed: 06/28/17 21:51> Subjective - Date and Time Seen Date: 06/28/17 Time: 06:07 Subjective Narrative: Pt examined this am. Is in no distress. Is receiving second unit of PRBC. Has no other complaints. Objective - Vitals Vitals: Last Vital Signs Temp 37.0 C 06/28/17 06:03 Pulse 75 06/28/17 06:03 Resp 22 H 06/28/17 06:03 BP 126/61 06/28/17 06:03 Pulse Ox 94 06/28/17 06:03 - Exam Constitutional: Present: Alert, Oriented x3, Cooperative, No distress ENT Exam: Present: normal ENT inspection. Absent: nasal congestion, nasal drainage Neck: Present: non-tender, full range of motion, supple Breasts: Present: Exam deferred Respiratory: Present: lungs clear, No wheezing Cardiovascular/Chest: Present: normal peripheral pulses, regular rate, rhythm, no chest tenderness Abdomen: Present: Normal bowel sounds, soft, nontender /Rectal: Present: Exam deferred Extremity: Present: normal range of motion, non-tender, normal inspection Skin Exam: Present: normal color, warm/dry, no cyanosis Lymphatic: Present: no adenopathy Neurologic: Present: normal cerebellar test, alert, dizzy/light-headedness Appearance: Present: appropriate appearance, appropriate insight Eye contact: Present: cooperative, good eye contact, normal speech Thoughts: Present: no apparent hallucination Assessment/Plan Plan Narrative: Plan to obtain Renal US today to check for causes of worsening Kidney function. - Problems/Diagnosis (1) Acute renal failure Problem: Acute QualifierTitle: Acute renal failure type: unspecified Qualified Code(s): N17.9 - Acute kidney failure, unspecified (2) Gastroenteritis Problem: Resolved (3) Aplastic anemia Problem: Acute (4) Dehydration Problem: Acute (5) Epilepsy Problem: Chronic (6) Type 2 diabetes mellitus Problem: Chronic (7) HTN (hypertension) Problem: Chronic (8) GERD (gastroesophageal reflux disease) Problem: Chronic (9) HLD (hyperlipidemia) Problem: Chronic <Lorena Alonzo - Last Filed: 07/02/17 21:48> Objective - Vitals Vitals: Last Vital Signs Temp 36.9 C 06/28/17 08:34 Pulse 73 06/28/17 08:39 Resp 18 06/28/17 08:34 BP 108/55 06/28/17 08:39 Pulse Ox 97 06/28/17 08:34 - Abnormal Lab Findings Abnormal Lab Findings: Abnormal Lab Results 06/28/17 Range/Units 06:02 RBC 3.07 L (4.7-6.0) M/mm3 Hgb 9.7 L (13.5-18.0) gm/dL Hct 29.5 L (42.0-52.0) % MCH 31.6 H (27-31) pg RDW 22.2 H (11.5-14.0) % Plt Count 539 H (150-450) K/mm3 MPV 9.6 H (6.0-9.5) fl Immature Gran % (Auto) 1.50 H (0.001-0.429) % Immature Gran # (Auto) 0.08 H (0.000-0.0310) K/mm3 Neutrophils % 80.7 H (42-75.0) % Lymphocytes % 10.6 L (20-51) % Eosinophils % 3.4 H (0.0-3.0) % Lymphocytes # 0.6 L (1.5-3.5) k/mm3 [facility] Physician Documentation - Urinary Catheter Management Urethral ([place]) Date of Insertion: 06/28/17
[2017-06-28] MEDS: LEVOTHYROXINE SODIUM 50 MCG TABLET PO SCH (07:21)
[2017-06-28] MEDS: PANTOPRAZOLE SODIUM 40 MG TABLET.EC PO SCH ×2 (07:21→18:03)
[2017-06-28] MEDS: GLIMEPIRIDE 4 MG TABLET PO SCH ×2 (07:21→18:03)
[2017-06-28] MEDS: busPIRone HCL 5 MG TABLET PO SCH ×2 (08:39→21:04)
[2017-06-28] MEDS: PROPRANOLOL HCL 60 MG CAPSULE.SA PO SCH (08:39)
[2017-06-28] MEDS: LIOTHYRONINE SODIUM 5 MCG TABLET PO SCH (08:39)
[2017-06-28] MEDS: PHENYTOIN SODIUM EXTENDED 100 MG CAPSULE PO SCH ×2 (08:39→18:03)
[2017-06-28] MEDS: CALCIUM POLYCARBOPHIL 625 MG TABLET PO SCH ×3 (08:39→18:03)
[2017-06-28] MEDS: QUEtiapine FUMARATE 25 MG TABLET PO SCH ×2 (08:40→21:02)
[2017-06-28] MEDS: carBAMazepine 200 MG TABLET PO SCH ×2 (08:40→21:03)
[2017-06-28] MEDS: Deferasirox [Jadenu] 360 MG PO SCH ×2 (08:40→21:07)
[2017-06-28] MEDS: sitaGLIPtin PHOSPHATE 50 MG TABLET PO SCH (09:08)
[2017-06-28 09:53] LABS: Hematocrit 29.5 % (42.0-52.0); Hemoglobin 9.7 gm/dL (13.5-18.0); Mean Cell Volume 96.1 fl (78-100); Mean Corpuscular Hemoglobin 31.6 pg (27-31); Mean Corpuscular Hgb Conc 32.9 g/dl (32-36); Mean Platelet Volume 9.6 fl (6.0-9.5); Neutrophil # 4.3 K/mm3 (1.3-6.0); Neutrophil % 80.7 % (42-75.0); Platelet Count 539 K/mm3 (150-450); Red Blood Count 3.07 M/mm3 (4.7-6.0); Red Cell Distribution Width 22.2 % (11.5-14.0); White Blood Count 5.3 K/mm3 (4.0-10.5)
[2017-06-28 10:29] LABS: Anion Gap 19.1 mmol/L (6.8-13.8); BUN/Creatinine Ratio 10.1 (9.0-21.6); Bilirubin, Total 0.8 mg/dL (0.0-1.1); Ca. Corrected For Albumin 8.4 mg/dL (8.4-10.2); Calcium * 7.1 mg/dL (7.9-10.9); Carbon Dioxide 13.7 mmol/L (24-32.6); Potassium 3.8 mmol/L (3.4-4.6)
--- NOTE | 2017-06-28 15:03 | CONS ---
- Reason for consultation (2) Acute renal failure Date of Service: 06/28/17 Reason for Consultation:: urethral stricture, urinary retention HPI - General Source: family, EMS notes reviewed Exam Limitations: physical impairment - History of Present Illness Initial Comments: 62 yo male with long history of bulbar urethral stricture. Former patient of Dr. Rondon. Reviewed notes from 2016 showing a 10 Fr urethral stricture that was dilated. Very abnormal urethra per the notes. HE was referred to Dr. Marquez at the [facility] for second opinion. I do not have notes but per his brother another dilation was done. If he had continued problems he would need a urethroplasty per Dr. Marquez. He is admitted to [facility] for the past couple days for renal failure. Thought related to diarrhea. Creat has worsened during his stay. Came in Creat was 2.79 and now up to above 4. Dr. Goyal found out today about his urethral stricture problem from his brother. I was called today. He underwent a SERJIO showing no hydro but bladder is distended. He has about 12 oz. Not urinating very much. Allergies/Adverse Reactions: Allergies codeine [Codeine] Allergy (Unknown, Verified 03/26/16 12:29) hydrocodone [Hydrocodone] Allergy (Unknown, Verified 03/26/16 12:29) morphine Allergy (Unknown, Verified 03/26/16 12:29) NSAIDS (Non-Steroidal Anti-Inflamma Allergy (Unknown, Verified 03/26/16 12:29) Opioids - Morphine Analogues [Opioids-Morphine & Related] Allergy (Unknown, Verified 03/26/16 12:29) oxycodone [Oxycodone] Allergy (Unknown, Verified 03/26/16 12:29) quinine Allergy (Unknown, Verified 03/26/16 12:29) risperidone [From Risperdal] Allergy (Unknown, Verified 03/26/16 12:29) thioridazine HCl [From Mellaril] Allergy (Unknown, Verified 03/26/16 12:29) aspirin Adverse Reaction (Mild, Verified 03/26/16 12:29) REFLUX Sulfa (Sulfonamide Antibiotics) [Sulfa(Sulfonamide Antibiotics)] Adverse Reaction (Mild, Verified 03/26/16 12:29) rash sulfamethoxazole [From Bactrim] Adverse Reaction (Mild, Verified 03/26/16 12:29) RASH trimethoprim [From Bactrim] Adverse Reaction (Mild, Verified 03/26/16 12:29) RASH Home Medications: Home Medications Medication Instructions Recorded Last Taken Carbamazepine [Carbatrol] 400 mg PO BID 04/14/13 06/26/17 10:00 400 mg Docusate Sodium [Stool Softener] 100 mg PO BID 04/14/13 06/25/17 10:00 Folic Acid 1 mg PO DAILY 04/14/13 06/26/17 08:00 PARoxetine HCL [Paxil] 60 mg PO HS 04/14/13 06/25/17 22:00 Phenytoin Sodium Extended 200 mg PO BIDWM 04/14/13 06/26/17 08:00 [Dilantin] Atorvastatin Calcium [Lipitor] 40 mg PO HS 11/25/14 06/25/17 22:00 Buspirone HCl 15 mg PO BID 11/25/14 06/26/17 10:00 Omeprazole [Prilosec] 40 mg PO BID 11/25/14 06/26/17 08:00 QUEtiapine FUMARATE [Seroquel] 25 mg PO [facility] 11/25/14 06/26/17 08:00 QUEtiapine FUMARATE [Seroquel] 75 mg PO 03/10/16 06/25/17 22:00 Alendronate Sodium [Fosamax] 70 mg PO .WEEKLY 06/18/17 Unknown Deferasirox [Jadenu] 360 mg PO BID 06/18/17 06/26/17 08:00 Lisinopril/Hydrochlorothiazide 5 mg PO DAILY 06/18/17 06/26/17 08:00 [Lisinopril-Hctz 10-12.5 mg Tab] Calcium Polycarbophil [Fiber 1,250 mg PO TID 06/19/17 Unknown Laxative] Ergocalciferol (Vitamin D2) 50,000 unit PO .WEEKLY 06/19/17 Unknown [Vitamin D2] Liothyronine Sodium [Cytomel] 5 mcg PO DAILY 06/19/17 06/26/17 08:00 Multivitamin [One Daily 1 cap PO DAILY 06/19/17 06/26/17 12:00 Multivitamin] Pyridoxine HCl [Vitamin B-6] 50 mg PO DAILY 06/19/17 06/26/17 08:00 Topiramate [Topamax] 100 mg PO BID 06/19/17 06/26/17 08:00 Ubidecarenone [Coenzyme Q10] 100 mg PO DAILY 06/19/17 06/26/17 08:00 Calcium Polycarbophil [Fibercon] 625 mg PO TID 06/26/17 06/26/17 12:00 metFORMIN HCL [Metformin HCl ER] 500 mg PO BID 06/26/17 06/26/17 08:00 Deferasirox [Jadenu] 360 mg PO BID 06/27/17 Unknown - Patient's Past Medical History Patient History - Medical: Anemia, Anxiety, Arthritis, GERD, Hypothyroidism, Osteoarthritis, Seizures, Other Patient History - Cardiac/Respiratory: No pertinent hx, Hypertension, Hyperlipidemia Patient History - Cancer: No Hx of Cancer Patient History - Surgical Procedures: Colonoscopy, EGD Patient History - Other: None - Family History Mother Family History - Medical: Family History - Cardiac/Respiratory: Coronary Heart Disease, Hypertension, Hyperlipidemia Family History - Cancer: No pertinent family hx Father Family History - Medical: , No pertinent hx Family History - Cardiac/Respiratory: Hypertension Family History - Cancer: No pertinent family hx Sister Family History - Cardiac/Respiratory: Aneurysm - Social History Living Situations: other - [facility] - [facility] Abuse History: No History of abuse Psych History: Hx of Anxiety Smoking Status: Never smoker Have you smoked in the past 12 months: No Do you dip or chew tobacco: No Patient requests Smoking Cessation Consult: No Initiate information on Smoking Cessation: No Alcohol Use: none Drug Use: none - Immunizations Immunizations Up to Date: Yes History of Influenza Vaccine: Yes Procedures ARTERIAL BLD GAS MEASURE (09/28/13) CLOSURE SKIN & SUBCUTANEOUS NEC (08/01/00) CYSTOSCOPY NEC (04/29/13) ESOPHAGEAL DILATION (07/31/06) ESOPHAGOGASTRODUODENOSCOPY [EGD] W/CLOSED BIOPSY (07/31/06) INSERT GASTRIC TUBE NEC (02/19/10) Medications - Medications Current Medications: Current Medications Buspirone HCl (Buspar) 15 mg PO BID JUSTIN Stop: 07/26/17 21:01 Last Admin: 06/28/17 08:39 Dose: 15 mg Calcium Polycarbophil (Fibercon) 1,250 mg PO TID JUSTIN Stop: 07/27/17 09:01 Last Admin: 06/28/17 12:09 Dose: 1,250 mg Carbamazepine (Tegretol) 400 mg PO BID JUSTIN Stop: 07/26/17 09:01 Last Admin: 06/28/17 08:40 Dose: 400 mg Glimepiride (Amaryl) 4 mg PO BIDAC JUSTIN Stop: 07/28/17 07:01 Last Admin: 06/28/17 07:21 Dose: 4 mg Sodium Chloride (Sodium Chloride 0.9%) 1,000 mls @ 75 mls/hr IV .[id number] PRN PRN Reason: HYDRATION Stop: 07/27/17 10:19 Last Admin: 06/27/17 20:34 Dose: 75 mls/hr Levothyroxine Sodium (Synthroid) 50 mcg PO DAILY@0700 JUSTIN Stop: 07/27/17 07:01 Last Admin: 06/28/17 07:21 Dose: 50 mcg Liothyronine Sodium (Cytomel) 5 mcg PO DAILY JUSTIN Stop: 07/27/17 09:01 Last Admin: 06/28/17 08:39 Dose: 5 mcg Deferasirox [Jadenu] (360 Mg) 360 mg PO BID JUSTIN Stop: 07/27/17 21:01 Last Admin: 06/28/17 08:40 Dose: 360 mg Pantoprazole Sodium (Protonix) 40 mg PO BIDAC JUSTIN Stop: 07/27/17 07:01 Last Admin: 06/28/17 07:21 Dose: 40 mg Paroxetine HCl (Paxil) 60 mg PO HS JUSTIN Stop: 07/26/17 21:01 Last Admin: 06/27/17 20:29 Dose: 60 mg Phenytoin Sodium (Dilantin) 200 mg PO BIDWM JUSTIN Stop: 07/27/17 09:01 Last Admin: 06/28/17 08:39 Dose: 200 mg Propranolol HCl (Inderal La) 120 mg PO DAILY JUSTIN Stop: 07/27/17 09:01 Last Admin: 06/28/17 08:39 Dose: 120 mg Quetiapine Fumarate (Seroquel) 75 mg PO HS [facility] Stop: 07/26/17 21:16 Last Admin: 06/27/17 20:28 Dose: 75 mg Quetiapine Fumarate (Seroquel) 25 mg PO QAM JUSTIN Stop: 07/27/17 09:01 Last Admin: 01/12/18 08:40 Dose: 25 mg Sitagliptin Phosphate (Januvia) 25 mg PO DAILY JUSTIN Stop: 07/28/17 09:01 Last Admin: 06/28/17 09:08 Dose: 25 mg Review of Systems - Review of Systems Narrative: Unable to obtain because patient can't meaningfully participate in history. Physical Examination - Exam Vital Signs: Vital Signs - Last Taken Temp 98.4 F 06/28/17 08:34 Pulse 73 06/28/17 08:39 Resp 18 06/28/17 08:34 BP 108/55 06/28/17 08:39 Pulse Ox 97 06/28/17 08:34 O2 Oxygen Delivery Method Room Air Constitutional: Present: No distress ENT Exam: Present: normal ENT inspection Neck: Present: non-tender Respiratory: Present: lungs clear, no respiratory distress Cardiovascular/Chest: Present: normal peripheral pulses, regular rate, rhythm Abdomen: Present: nontender, nondistended, no rebound tenderness /Rectal: Present: External genitalia normal Extremity: Present: normal range of motion Skin Exam: Present: normal color, warm/dry, no cyanosis Thoughts: Present: incoherent - Results and Findings: Narrative: Need morales catheter based on retention and renal failure. Given history recommended going to the OR with his brother for cystoscopy, possible dilation and morales placement. Lab/Microbiology results last 24 hrs: Abnormal/Pending Laboratory Last 24 HRS 06/28/17 06/28/17 06:02 06:02 RBC 3.07 L Hgb 9.7 L Hct 29.5 L MCH 31.6 H RDW 22.2 H Plt Count 539 H MPV 9.6 H Immature Gran % (Auto) 1.50 H Immature Gran # (Auto) 0.08 H Neutrophils % 80.7 H Lymphocytes % 10.6 L Eosinophils % 3.4 H Lymphocytes # 0.6 L Carbon Dioxide 13.7 L Anion Gap 19.1 H BUN 47 H Creatinine 4.65 H D Est GFR (Non-Af Amer) 14 L D Random Glucose 124 H Calcium 7.1 L AST 137 H ALT 93 H Total Protein 6.0 L Albumin 2.0 L - Assessments/Findings (1) Urinary retention Problem: Acute (2) Acute renal failure Problem: Acute Qualifiers: Acute renal failure type: unspecified Qualified Code(s): N17.9 - Acute kidney failure, unspecified (3) Urethral stricture Problem: Acute Qualifiers: Urethral stricture sex-location: male urethra-bulbous
[2017-06-28] MEDS: NORMAL SALINE 1,000 ML IV PRN (15:20)
[2017-06-28] MEDS ORDERED: NORMAL SALINE 1,000 ML IV ONE (15:30)
[2017-06-28] MEDS ORDERED: cefTRIAXone SODIUM 1,000 MG in DEXTROSE 5 % IN WATER 50 ML IV ONE ×2 (16:30)
[2017-06-28] MEDS: PARoxetine HCL 20 MG TABLET PO SCH (21:05)
[2017-06-29] MEDS: NORMAL SALINE 1,000 ML IV PRN (02:57)
[2017-06-29] MEDS ORDERED: DEXTROSE 50%-WATER 50 ML SYRG ONE (03:43)
[2017-06-29] MEDS ORDERED: DEXTROSE 50%-WATER 50 ML SYRG IV ONE (03:50)
[2017-06-29 05:57] LABS: Hematocrit 32.2 % (42.0-52.0); Hemoglobin 10.4 gm/dL (13.5-18.0); Mean Cell Volume 99.4 fl (78-100); Mean Corpuscular Hemoglobin 32.1 pg (27-31); Mean Corpuscular Hgb Conc 32.3 g/dl (32-36); Mean Platelet Volume 10.7 fl (6.0-9.5); Platelet Count 328 K/mm3 (150-450); Red Blood Count 3.24 M/mm3 (4.7-6.0); Red Cell Distribution Width 23.9 % (11.5-14.0); White Blood Count 4.9 K/mm3 (4.0-10.5)
[2017-06-29 06:01] LABS: Total Cells Counted 100
[2017-06-29 06:12] LABS: Anion Gap 19.2 mmol/L (6.8-13.8); BUN/Creatinine Ratio 10.3 (9.0-21.6); Carbon Dioxide 11.2 mmol/L (24-32.6); Estimated Creat Clear 13.1; Potassium 4.4 mmol/L (3.4-4.6)
--- NOTE | 2017-06-29 06:13 | PN ---
Subjective - Date and Time Seen Date: 06/29/17 Time: 06:11 Subjective Narrative: Pt seen this morning. Nursing reports hypoglycemia in the 30s towards morning hours and 3 diarrhea episodes. Swelling on BLE is worse. No other acute events. Objective - Vitals Vitals: Last Vital Signs Temp 36.5 C 06/29/17 00:00 Pulse 80 06/29/17 00:00 Resp 20 06/29/17 00:00 BP 156/56 06/29/17 00:00 Pulse Ox 96 06/29/17 00:00 - Abnormal Lab Findings Abnormal Lab Findings: Abnormal Lab Results 06/28/17 06/28/17 06/29/17 Range/Units 06:02 06:02 03:43 RBC 3.07 L (4.7-6.0) M/mm3 Hgb 9.7 L (13.5-18.0) gm/dL Hct 29.5 L (42.0-52.0) % MCH 31.6 H (27-31) pg RDW 22.2 H (11.5-14.0) % Plt Count 539 H (150-450) K/mm3 MPV 9.6 H (6.0-9.5) fl Immature Gran % (Auto) 1.50 H (0.001-0.429) % Immature Gran # (Auto) 0.08 H (0.000-0.0310) K/mm3 Neutrophils % 80.7 H (42-75.0) % Lymphocytes % 10.6 L (20-51) % Eosinophils % 3.4 H (0.0-3.0) % Lymphocytes # 0.6 L (1.5-3.5) k/mm3 Carbon Dioxide 13.7 L (24-32.6) mmol/L Anion Gap 19.1 H (6.8-13.8) mmol/L BUN 47 H (6-23) mg/dL Creatinine 4.65 H D (0.4-1.4) mg/dL Est GFR (Non-Af Amer) 14 L D (60-130) mL/min Random Glucose 124 H 141 H (70-110) mg/dL Calcium 7.1 L (7.9-10.9) mg/dL AST 137 H (0-48) U/L ALT 93 H (19-67) U/L Total Protein 6.0 L (6.2-8.2) gm/dL Albumin 2.0 L (3.4-5.0) gm/dl 06/29/17 Range/Units 05:50 RBC 3.24 L (4.7-6.0) M/mm3 Hgb 10.4 L (13.5-18.0) gm/dL Hct 32.2 L (42.0-52.0) % MCH 32.1 H (27-31) pg RDW 23.9 H (11.5-14.0) % Plt Count (150-450) K/mm3 MPV 10.7 H (6.0-9.5) fl Immature Gran % (Auto) (0.001-0.429) % Immature Gran # (Auto) (0.000-0.0310) K/mm3 Neutrophils % (42-75.0) % Lymphocytes % (20-51) % Eosinophils % (0.0-3.0) % Lymphocytes # (1.5-3.5) k/mm3 Carbon Dioxide (24-32.6) mmol/L Anion Gap (6.8-13.8) mmol/L BUN (6-23) mg/dL Creatinine (0.4-1.4) mg/dL Est GFR (Non-Af Amer) (60-130) mL/min Random Glucose (70-110) mg/dL Calcium (7.9-10.9) mg/dL AST (0-48) U/L ALT (19-67) U/L Total Protein (6.2-8.2) gm/dL Albumin (3.4-5.0) gm/dl - Exam Constitutional: Present: Alert, Oriented x3, Cooperative, No distress ENT Exam: Present: normal ENT inspection Neck: Present: non-tender, full range of motion, supple Breasts: Present: Exam deferred Respiratory: Present: lungs clear, No rales, No wheezing Cardiovascular/Chest: Present: normal peripheral pulses, regular rate, rhythm Abdomen: Present: Normal bowel sounds, soft, nontender /Rectal: Present: Other - Morales cath. Extremity: Present: normal range of motion, non-tender, normal inspection, lower extremity edema - 3-4 + BLE. Skin Exam: Present: normal color, warm/dry, no cyanosis Neurologic: Present: no motor/sensory deficits, alert, oriented x 3 Appearance: Present: appropriate appearance, appropriate insight Eye contact: Present: cooperative, good eye contact, normal speech Thoughts: Present: normal thought pattern, no apparent hallucination Cauti Physician Documentation - Urinary Catheter Management Urethral (Morales) Date of Insertion: 06/28/17 Assessment/Plan Plan Narrative: Mr. Edwards is a 62-yr Pt with: 1.) Acute Renal Failure- His baseline creatinine is usually below 1.00 & on DOA , Cr--> 2.79. LINDA the Initially thought to be pre-renal due to dehydration from vomiting and diarrhea. Received IVF hydration but Kidney function declined more with Cr--> 3.77. IVF discontinued due to worsening edema but No lasix given as there was no sign of respiratory compromise, but Cr continued to be elevated --> 4.65. Renal US obtained and results showed: no Obstructive uropathy or hydronephrosis, however, the LT kidney was noted to be atrophic and much smaller than the RT kidney and there was non-specific bladder wall thickening. 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 He was found to have urinary retention and morales catheter was placed in with the hope of improving urinary flow and kidney function but Cr--> 4.84. IVF discontinued. given IV lasix. Will monitor kidney function response to Lasix in am as its only reserved for pt's with fluid overload; not routinely recommended for treatment of LINDA. Nephrotoxic drugs on hold- Metformin, Lisinopril, Phenytoin? Jadenu? If no improvement in 06/30/ am labs, May need to be transferred to facility with Nephrology dept and possible need for MOTOR VEHICLE SALESPERSON due to risk of life threatening changes in fluid, electrolyte and acid-base balance. ? Tumor Lysis syndrome- low calcium, LINDA, k level slowly trending up, will check Phos level. TLS can also occur spontaneously with tumors that have high proliferative rate. 2.) Urinary retention- Developed urinary retention secondary to Urethral Bulbar Stricture. Morales catheter inserted by Urology. Its to remain in place until his kidney function returns to base line and will need referral to the [facility] for treatment of the stricture. Continue Urex 3.) Aplastic Anemia-Has hx of Myelodysplastic syndrome and periodically receives blood transfusion. Last Transfusion was April 2017. Received 2 units of PRBC due to hgb of 7.0 on 06/27/17. Continue Jadenu. 4.) Diarrhea- Appears to have resolved. was -ve for C-diff. Continue with Fibercon-bulk forming laxatives and has off label indication for treating diarrhea. 5.) Chronic stable Conditions- DM II- Metformin on hold due to LINDA, Amaryl on hold due to hypoglycemia and poor appetite. Epilepsy- Dilantin and carbamazepine GERD HTN HLD - Problems/Diagnosis (1) Acute renal failure Problem: Acute Qualifiers: Acute renal failure type: unspecified Qualified Code(s): N17.9 - Acute kidney failure, unspecified (2) Gastroenteritis Problem: Resolved (3) Aplastic anemia Problem: Acute (4) Dehydration Problem: Acute (5) Epilepsy Problem: Chronic (6) Type 2 diabetes mellitus Problem: Chronic (7) HTN (hypertension) Problem: Chronic (8) GERD (gastroesophageal reflux disease) Problem: Chronic (9) HLD (hyperlipidemia) Problem: Chronic
[2017-06-29 06:31] LABS: Eosinophil 2 % (0-3); Lymphocyte 13 % (20-51); Monocyte 3 % (0-9); Neutrophil 82 % (42-75)
[2017-06-29 06:32] LABS: Platelet Estimate Increased (NORMAL)
[2017-06-29 06:34] LABS: Anisocytosis 1+
[2017-06-29] MEDS: LEVOTHYROXINE SODIUM 50 MCG TABLET PO SCH (07:00)
[2017-06-29] MEDS: PANTOPRAZOLE SODIUM 40 MG TABLET.EC PO SCH ×2 (07:00→17:26)
[2017-06-29] MEDS: GLIMEPIRIDE 4 MG TABLET PO SCH (07:33)
[2017-06-29] MEDS: CALCIUM POLYCARBOPHIL 625 MG TABLET PO SCH ×4 (10:02→17:26)
[2017-06-29] MEDS: PROPRANOLOL HCL 60 MG CAPSULE.SA PO SCH (10:02)
[2017-06-29] MEDS: busPIRone HCL 5 MG TABLET PO SCH ×2 (10:03→20:46)
[2017-06-29] MEDS: LIOTHYRONINE SODIUM 5 MCG TABLET PO SCH (10:03)
[2017-06-29] MEDS: PHENYTOIN SODIUM EXTENDED 100 MG CAPSULE PO SCH ×2 (10:03→17:26)
[2017-06-29] MEDS: carBAMazepine 200 MG TABLET PO SCH ×2 (10:03→20:52)
[2017-06-29] MEDS: QUEtiapine FUMARATE 25 MG TABLET PO SCH ×2 (10:04→20:39)
[2017-06-29] MEDS: sitaGLIPtin PHOSPHATE 50 MG TABLET PO SCH (10:04)
[2017-06-29] MEDS: Deferasirox [Jadenu] 360 MG PO SCH ×2 (10:04→20:48)
[2017-06-29] MEDS: SACCHAROMYCES BOULARDII 250 MG CAPSULE PO SCH ×2 (11:03→20:38)
[2017-06-29] MEDS ORDERED: FUROSEMIDE 10 MG/ML VIAL IV ONE (11:26)
[2017-06-29] MEDS: cefTRIAXone SODIUM 1,000 MG in DEXTROSE 5 % IN WATER 50 ML IV SCH ×2 (17:26)
[2017-06-29] MEDS: PARoxetine HCL 20 MG TABLET PO SCH (20:38)
[2017-06-30 05:53] LABS: Hematocrit 28.2 % (42.0-52.0); Hemoglobin 9.7 gm/dL (13.5-18.0); Mean Cell Volume 94.3 fl (78-100); Mean Corpuscular Hemoglobin 32.4 pg (27-31); Mean Corpuscular Hgb Conc 34.4 g/dl (32-36); Mean Platelet Volume 9.3 fl (6.0-9.5); Platelet Count 514 K/mm3 (150-450); Red Blood Count 2.99 M/mm3 (4.7-6.0); Red Cell Distribution Width 23.2 % (11.5-14.0); White Blood Count 5.3 K/mm3 (4.0-10.5)
[2017-06-30 05:55] LABS: Total Cells Counted 100
[2017-06-30 06:08] LABS: Albumin * 1.7 gm/dl (3.4-5.0); Anion Gap 19.5 mmol/L (6.8-13.8); BUN/Creatinine Ratio 11.3 (9.0-21.6); Bilirubin, Total 0.4 mg/dL (0.0-1.1); Ca. Corrected For Albumin 8.1 mg/dL (8.4-10.2); Calcium * 6.6 mg/dL (7.9-10.9); Carbon Dioxide 12.3 mmol/L (24-32.6); Phosphorus 5.5 mg/dL (2.2-4.2); Potassium 3.8 mmol/L (3.4-4.6); Total Protein 5.6 gm/dL (6.2-8.2)
[2017-06-30 06:24] LABS: Atypical (Reactive) Lymph 4 % (0-2); Band 2 % (0-2.0); Eosinophil 7 % (0-3); Lymphocyte 9 % (20-51); Monocyte 3 % (0-9); Neutrophil 75 % (42-75); Platelet Estimate Normal (NORMAL); RBC Morphology Normal (NORMAL)
--- NOTE | 2017-06-30 06:30 | PN ---
Subjective - Date and Time Seen Date: 06/30/17 Time: 06:26 Subjective Narrative: Pt seen this morning. Speech is incomprehensible. Nursing report that pt's sibling felt his mentation if off from baseline. No other acute events overnight. Objective - Vitals Vitals: Last Vital Signs Temp 36.3 C L 06/29/17 22:56 Pulse 72 06/29/17 22:56 Resp 18 06/29/17 22:56 BP 130/73 06/29/17 22:56 Pulse Ox 99 06/29/17 22:56 - Abnormal Lab Findings Abnormal Lab Findings: Abnormal Lab Results 06/29/17 06/30/17 06/30/17 Range/Units 05:50 05:50 05:50 RBC 2.99 L (4.7-6.0) M/mm3 Hgb 9.7 L (13.5-18.0) gm/dL Hct 28.2 L (42.0-52.0) % MCH 32.4 H (27-31) pg RDW 23.2 H (11.5-14.0) % Plt Count 514 H (150-450) K/mm3 Neutrophils % (Manual) 82 H (42-75) % Lymphocytes % (Manual) 13 L 9 L (20-51) % Eosinophils % (Manual) 7 H (0-3) % Lymphocytes # (Manual) 0.6 L 0.5 L (1.5-3.5) k/mm3 Atypic/Reactive Lymphs 4 H (0-2) % Platelet Estimate Increased H (NORMAL) Chloride 109 H (97-106) mmol/L Carbon Dioxide 12.3 L (24-32.6) mmol/L Anion Gap 19.5 H (6.8-13.8) mmol/L BUN 49 H (6-23) mg/dL Creatinine 4.33 H D (0.4-1.4) mg/dL Est GFR (Non-Af Amer) 15 L (60-130) mL/min Random Glucose 160 H D (70-110) mg/dL Calcium 6.6 L (7.9-10.9) mg/dL Calcium Adj for Albumin 8.1 L (8.4-10.2) mg/dL Phosphorus 5.5 H D (2.2-4.2) mg/dL AST 102 H (0-48) U/L ALT 80 H (19-67) U/L Alkaline Phosphatase 214 H (50-170) U/L Total Protein 5.6 L (6.2-8.2) gm/dL Albumin 1.7 L (3.4-5.0) gm/dl - Exam Constitutional: Present: Alert, Cooperative, No distress ENT Exam: Absent: nasal congestion, nasal drainage Neck: Present: non-tender, full range of motion, supple Breasts: Present: Exam deferred Respiratory: Present: no accessory muscle use Cardiovascular/Chest: Present: normal peripheral pulses, regular rate, rhythm Abdomen: Present: Normal bowel sounds, soft, nontender /Rectal: Present: Exam deferred Extremity: Present: non-tender, normal inspection, no pedal edema, lower extremity edema - 3+ edema Skin Exam: Present: warm/dry, no cyanosis Neurologic: Present: no motor/sensory deficits, alert, disoriented x 3 Appearance: Present: impaired recent memory, impaired remote memory Eye contact: Present: decreased rate of speech Thoughts: Present: visual hallucinations Cauti Physician Documentation - Urinary Catheter Management Urethral (Morales) Date of Insertion: 06/28/17 Assessment/Plan Plan Narrative: Mr. Edwards is a 62-yr Pt with: 1.) Acute Renal Failure- His baseline creatinine is usually below 1.00 & on DOA , Cr--> 2.79. LINDA the Initially thought to be pre-renal due to dehydration from vomiting and diarrhea. Received IVF hydration but Kidney function declined more with Cr--> 3.77. IVF discontinued due to worsening edema but No lasix given as there was no sign of respiratory compromise, but Cr continued to be elevated --> 4.65. Renal US obtained and results showed: no Obstructive uropathy or hydronephrosis, however, the LT kidney was noted to be atrophic and much smaller than the RT kidney and there was non-specific bladder wall thickening. 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 He was found to have urinary retention and morales catheter was placed in with the hope of improving urinary flow and kidney function but Cr--> 4.84. IVF discontinued. given IV lasix. Will monitor kidney function response to Lasix in am as its only reserved for pt's with fluid overload; not routinely recommended for treatment of LINDA. Nephrotoxic drugs on hold- Metformin, Lisinopril, Phenytoin? Jadenu? If no improvement in labs, May need to be transferred to facility with Nephrology dept and possible need for PRODUCT SUPPORT SALES REPRESENTATIVE due to risk of life threatening changes in fluid, electrolyte and acid-base balance. ? Tumor Lysis syndrome- low calcium, LINDA, k level slowly trending up, will check Phos level. TLS can also occur spontaneously with tumors that have high proliferative rate. 2.) Urinary retention- Developed urinary retention secondary to Urethral Bulbar Stricture. Morales catheter inserted by Urology. Its to remain in place until his kidney function returns to base line and will need referral to the [facility] for treatment of the stricture. Continue Urex 3.) Aplastic Anemia-Has hx of Myelodysplastic syndrome and periodically receives blood transfusion. Last Transfusion was April 2017. Received 2 units of PRBC due to hgb of 7.0 on 06/27/17. Continue Jadenu. 4.) Diarrhea- Appears to have resolved. was -ve for C-diff. Continue with Fibercon-bulk forming laxatives and has off label indication for treating diarrhea. 5.) Chronic stable Conditions- DM II- Metformin on hold due to LINDA, Amaryl on hold due to hypoglycemia and poor appetite. Epilepsy- Dilantin and carbamazepine GERD HTN HLD - Problems/Diagnosis (1) Acute renal failure Problem: Acute Qualifiers: Acute renal failure type: unspecified Qualified Code(s): N17.9 - Acute kidney failure, unspecified (2) Gastroenteritis Problem: Resolved (3) Aplastic anemia Problem: Acute (4) Dehydration Problem: Acute (5) Epilepsy Problem: Chronic (6) Type 2 diabetes mellitus Problem: Chronic (7) HTN (hypertension) Problem: Chronic (8) GERD (gastroesophageal reflux disease) Problem: Chronic (9) HLD (hyperlipidemia) Problem: Chronic
[2017-06-30] MEDS: LEVOTHYROXINE SODIUM 50 MCG TABLET PO SCH (07:22)
[2017-06-30] MEDS: PANTOPRAZOLE SODIUM 40 MG TABLET.EC PO SCH ×2 (07:23→17:53)
[2017-06-30] MEDS: Deferasirox [Jadenu] 360 MG PO SCH ×2 (09:17→21:05)
[2017-06-30] MEDS: LIOTHYRONINE SODIUM 5 MCG TABLET PO SCH (09:17)
[2017-06-30] MEDS: PHENYTOIN SODIUM EXTENDED 100 MG CAPSULE PO SCH ×2 (09:17→17:53)
[2017-06-30] MEDS: CALCIUM POLYCARBOPHIL 625 MG TABLET PO SCH ×3 (09:17→17:53)
[2017-06-30] MEDS: busPIRone HCL 5 MG TABLET PO SCH ×2 (09:17→21:04)
[2017-06-30] MEDS: SACCHAROMYCES BOULARDII 250 MG CAPSULE PO SCH ×2 (09:18→21:05)
[2017-06-30] MEDS: PROPRANOLOL HCL 60 MG CAPSULE.SA PO SCH (09:18)
[2017-06-30] MEDS: QUEtiapine FUMARATE 25 MG TABLET PO SCH ×2 (09:19→21:07)
[2017-06-30] MEDS: sitaGLIPtin PHOSPHATE 50 MG TABLET PO SCH (09:19)
[2017-06-30] MEDS: carBAMazepine 200 MG TABLET PO SCH ×2 (09:19→21:08)
[2017-06-30] MEDS: PYRIDOXINE HCL (VITAMIN B6) 25 MG TABLET PO SCH (09:20)
[2017-06-30] MEDS: METHENAMINE MANDELATE 1 GM TABLET PO SCH ×2 (09:20→21:08)
[2017-06-30] MEDS: CALCIUM ACETATE 667 MG CAPSULE PO SCH ×3 (10:27→17:53)
[2017-06-30] MEDS: FLUCONAZOLE 100 MG TABLET PO SCH (10:27)
[2017-06-30] MEDS: FUROSEMIDE 10 MG/ML VIAL IV ONE ×2 (17:51→17:59)
[2017-06-30] MEDS: cefTRIAXone SODIUM 1,000 MG in DEXTROSE 5 % IN WATER 50 ML IV SCH ×2 (17:51)
[2017-06-30] MEDS ORDERED: INSULIN DETEMIR 100 UNITS/ML VIAL SC SCH (21:00)
[2017-06-30] MEDS: PARoxetine HCL 20 MG TABLET PO SCH (21:06)
[2017-06-30] MEDS: DOXEPIN HCL 10 MG CAPSULE PO SCH (21:07)
[2017-06-30] MEDS: INSULIN LISPRO 100 UNITS/ML VIAL SC SCH ×2 (21:20→21:21)
[2017-06-30] MEDS: INSULIN GLARGINE,HUM.REC.ANLOG 100 UNITS/ML VIAL SC SCH (23:44)
[2017-07-01 05:59] LABS: Hematocrit 29.3 % (42.0-52.0); Hemoglobin 9.9 gm/dL (13.5-18.0); Mean Cell Volume 93.9 fl (78-100); Mean Corpuscular Hemoglobin 31.7 pg (27-31); Mean Corpuscular Hgb Conc 33.8 g/dl (32-36); Mean Platelet Volume 9.9 fl (6.0-9.5); Platelet Count 465 K/mm3 (150-450); Red Blood Count 3.12 M/mm3 (4.7-6.0); Red Cell Distribution Width 22.8 % (11.5-14.0); White Blood Count 5.1 K/mm3 (4.0-10.5)
[2017-07-01 06:07] LABS: Total Cells Counted 100
[2017-07-01 06:15] LABS: Albumin * 1.9 gm/dl (3.4-5.0); Anion Gap 21.1 mmol/L (6.8-13.8); BUN/Creatinine Ratio 13.7 (9.0-21.6); Bilirubin, Total 0.5 mg/dL (0.0-1.1); Ca. Corrected For Albumin 8.6 mg/dL (8.4-10.2); Calcium * 7.2 mg/dL (7.9-10.9); Carbon Dioxide 13.5 mmol/L (24-32.6); Phosphorus 4.7 mg/dL (2.2-4.2); Potassium 3.6 mmol/L (3.4-4.6); Total Protein 6.2 gm/dL (6.2-8.2)
[2017-07-01 06:22] LABS: Band 6 % (0-2.0); Eosinophil 1 % (0-3); Lymphocyte 15 % (20-51); Monocyte 1 % (0-9); Neutrophil 77 % (42-75); Neutrophil # 3.9 K/mm3 (1.3-6.0)
[2017-07-01 06:23] LABS: Hypochromia 1+; Macrocytosis 2+; Platelet Estimate Increased (NORMAL)
[2017-07-01] MEDS: Coenzyme Q10 100 MG PO SCH ×2 (06:46→08:39)
[2017-07-01] MEDS: INSULIN LISPRO 100 UNITS/ML VIAL SC SCH ×4 (06:53→21:59)
--- NOTE | 2017-07-01 06:53 | PN ---
Subjective - Date and Time Seen Date: 07/01/17 Time: 06:47 Subjective Narrative: Pt seen this am. Is very talkative this morning. No issues according to nursing. Cr is improving with diuretics. Objective - Vitals Vitals: Last Vital Signs Temp 36.4 C L 07/01/17 06:13 Pulse 77 07/01/17 06:13 Resp 17 07/01/17 06:13 BP 135/66 07/01/17 06:13 Pulse Ox 98 07/01/17 06:13 - Abnormal Lab Findings Abnormal Lab Findings: Abnormal Lab Results 07/01/17 07/01/17 Range/Units 05:35 05:35 RBC 3.12 L (4.7-6.0) M/mm3 Hgb 9.9 L (13.5-18.0) gm/dL Hct 29.3 L (42.0-52.0) % MCH 31.7 H (27-31) pg RDW 22.8 H (11.5-14.0) % Plt Count 465 H (150-450) K/mm3 MPV 9.9 H (6.0-9.5) fl Neutrophils % (Manual) 77 H (42-75) % Band Neuts % (Manual) 6 H (0-2.0) % Lymphocytes % (Manual) 15 L (20-51) % Lymphocytes # (Manual) 0.8 L (1.5-3.5) k/mm3 Platelet Estimate Increased H (NORMAL) Chloride 109 H (97-106) mmol/L Carbon Dioxide 13.5 L (24-32.6) mmol/L Anion Gap 21.1 H (6.8-13.8) mmol/L BUN 47 H (6-23) mg/dL Creatinine 3.43 H D (0.4-1.4) mg/dL Est GFR (Non-Af Amer) 20 L D (60-130) mL/min Random Glucose 142 H (70-110) mg/dL Calcium 7.2 L (7.9-10.9) mg/dL Phosphorus 4.7 H D (2.2-4.2) mg/dL AST 69 H (0-48) U/L ALT 72 H (19-67) U/L Alkaline Phosphatase 231 H (50-170) U/L Albumin 1.9 L (3.4-5.0) gm/dl - Exam Constitutional: Present: Alert, No distress ENT Exam: Present: normal ENT inspection. Absent: nasal congestion, nasal drainage Neck: Present: non-tender, full range of motion Breasts: Present: Exam deferred Respiratory: Present: no accessory muscle use, No wheezing Cardiovascular/Chest: Present: normal peripheral pulses, regular rate, rhythm, no chest tenderness, edema Abdomen: Present: Normal bowel sounds, soft, nontender /Rectal: Present: Other - Morales catheter Extremity: Present: normal range of motion, non-tender, lower extremity edema - 2-3 + BLE pitting edema Skin Exam: Present: no cyanosis Lymphatic: Present: no adenopathy Neurologic: Present: no motor/sensory deficits, alert, oriented x 3 Appearance: Present: impaired recent memory, impaired remote memory Eye contact: Present: compulsive Thoughts: Present: no apparent hallucination Cauti Physician Documentation - Urinary Catheter Management Urethral (Morales) Date of Insertion: 06/28/17 Assessment/Plan Plan Narrative: Mr. Edwards is a 62-yr Pt with: 1.) Acute Renal Failure- His baseline creatinine is usually below 1.00 & on DOA , Cr--> 2.79. LINDA the Initially thought to be pre-renal due to dehydration from vomiting and diarrhea. Received IVF hydration but Kidney function declined more with Cr--> 3.77. IVF discontinued due to worsening edema but No lasix given as there was no sign of respiratory compromise, but Cr continued to be elevated --> 4.65. Renal US obtained and results showed: no Obstructive uropathy or hydronephrosis, however, the LT kidney was noted to be atrophic and much smaller than the RT kidney and there was non-specific bladder wall thickening. 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 He was found to have urinary retention and morales catheter was placed in with the hope of improving urinary flow and kidney function but Cr--> 4.84. IVF discontinued. given IV lasix. Will monitor kidney function response to Lasix in am as its only reserved for pt's with fluid overload; not routinely recommended for treatment of LINDA. Nephrotoxic drugs on hold- Metformin, Lisinopril, Phenytoin? Jadenu? If no improvement in labs, May need to be transferred to facility with Nephrology dept and possible need for [employer] due to risk of life threatening changes in fluid, electrolyte and acid-base balance. Laboratory Tests 07/01- Cr improving with Diuretics. Will continue. 06/30/17 07/01/17 05:50 05:35 BUN 49 H 47 H Creatinine 4.33 H D 3.43 H D 2.) Urinary retention- Developed urinary retention secondary to Urethral Bulbar Stricture. Morales catheter inserted by Urology. Its to remain in place until his kidney function returns to base line and will need referral to the [facility] for treatment of the stricture. Continue Urex 3.) Aplastic Anemia-Has hx of Myelodysplastic syndrome and periodically receives blood transfusion. Last Transfusion was April 2017. Received 2 units of PRBC due to hgb of 7.0 on 06/27/17. Continue Jadenu. 4.) Diarrhea- Appears to have resolved. was -ve for C-diff. Continue with Fibercon-bulk forming laxatives and has off label indication for treating diarrhea. 5.) Chronic stable Conditions- DM II- Metformin on hold due to LINDA, Amaryl on hold due to hypoglycemia and poor appetite. 06/30-BS trending up. Started on SSI and Lantus. Epilepsy- Dilantin and carbamazepine GERD HTN HLD - Problems/Diagnosis (1) Acute renal failure Problem: Acute Qualifiers: Acute renal failure type: unspecified Qualified Code(s): N17.9 - Acute kidney failure, unspecified (2) Gastroenteritis Problem: Resolved (3) Aplastic anemia Problem: Acute (4) Dehydration Problem: Acute (5) Epilepsy Problem: Chronic (6) Type 2 diabetes mellitus Problem: Chronic (7) HTN (hypertension) Problem: Chronic (8) GERD (gastroesophageal reflux disease) Problem: Chronic (9) HLD (hyperlipidemia) Problem: Chronic
[2017-07-01] MEDS: PANTOPRAZOLE SODIUM 40 MG TABLET.EC PO SCH ×2 (06:57→17:21)
[2017-07-01] MEDS: LEVOTHYROXINE SODIUM 50 MCG TABLET PO SCH (06:57)
[2017-07-01] MEDS: LIOTHYRONINE SODIUM 5 MCG TABLET PO SCH (08:35)
[2017-07-01] MEDS: busPIRone HCL 5 MG TABLET PO SCH ×2 (08:35→22:03)
[2017-07-01] MEDS: PROPRANOLOL HCL 60 MG CAPSULE.SA PO SCH (08:36)
[2017-07-01] MEDS: CALCIUM POLYCARBOPHIL 625 MG TABLET PO SCH ×3 (08:36→17:21)
[2017-07-01] MEDS: SACCHAROMYCES BOULARDII 250 MG CAPSULE PO SCH ×2 (08:36→22:00)
[2017-07-01] MEDS: QUEtiapine FUMARATE 25 MG TABLET PO SCH ×2 (08:37→22:02)
[2017-07-01] MEDS: carBAMazepine 200 MG TABLET PO SCH ×2 (08:37→22:04)
[2017-07-01] MEDS: sitaGLIPtin PHOSPHATE 50 MG TABLET PO SCH (08:37)
[2017-07-01] MEDS: CALCIUM ACETATE 667 MG CAPSULE PO SCH ×3 (08:37→17:21)
[2017-07-01] MEDS: PYRIDOXINE HCL (VITAMIN B6) 25 MG TABLET PO SCH (08:38)
[2017-07-01] MEDS: METHENAMINE MANDELATE 1 GM TABLET PO SCH ×2 (08:38→22:04)
[2017-07-01] MEDS: Deferasirox [Jadenu] 360 MG PO SCH ×2 (08:46→21:58)
[2017-07-01] MEDS: FLUCONAZOLE 100 MG TABLET PO SCH (08:46)
[2017-07-01] MEDS: PHENYTOIN SODIUM EXTENDED 100 MG CAPSULE PO SCH ×2 (08:50→17:21)
[2017-07-01] MEDS: cefTRIAXone SODIUM 1,000 MG in DEXTROSE 5 % IN WATER 50 ML IV SCH ×2 (15:53)
[2017-07-01] MEDS: PARoxetine HCL 20 MG TABLET PO SCH (22:01)
[2017-07-01] MEDS: DOXEPIN HCL 10 MG CAPSULE PO SCH (22:02)
[2017-07-01] MEDS: INSULIN GLARGINE,HUM.REC.ANLOG 100 UNITS/ML VIAL SC SCH (22:12)
[2017-07-02 07:17] LABS: Anion Gap 18.7 mmol/L (6.8-13.8); BUN/Creatinine Ratio 15.6 (9.0-21.6); Calcium * 7.7 mg/dL (7.9-10.9); Carbon Dioxide 13.3 mmol/L (24-32.6); Estimated Creat Clear 24.6
[2017-07-02] MEDS: LEVOTHYROXINE SODIUM 50 MCG TABLET PO SCH (07:47)
[2017-07-02] MEDS: PANTOPRAZOLE SODIUM 40 MG TABLET.EC PO SCH ×2 (07:47→17:08)
[2017-07-02] MEDS: INSULIN LISPRO 100 UNITS/ML VIAL SC SCH ×4 (07:58→21:08)
[2017-07-02] MEDS: Deferasirox [Jadenu] 360 MG PO SCH ×2 (08:00→21:19)
[2017-07-02] MEDS: LIOTHYRONINE SODIUM 5 MCG TABLET PO SCH (08:01)
[2017-07-02] MEDS: busPIRone HCL 5 MG TABLET PO SCH ×2 (08:01→20:55)
[2017-07-02] MEDS: PHENYTOIN SODIUM EXTENDED 100 MG CAPSULE PO SCH ×2 (08:02→17:06)
[2017-07-02] MEDS: PROPRANOLOL HCL 60 MG CAPSULE.SA PO SCH (08:03)
[2017-07-02] MEDS: SACCHAROMYCES BOULARDII 250 MG CAPSULE PO SCH ×2 (08:03→20:56)
[2017-07-02] MEDS: CALCIUM POLYCARBOPHIL 625 MG TABLET PO SCH ×3 (08:04→17:06)
[2017-07-02] MEDS: sitaGLIPtin PHOSPHATE 50 MG TABLET PO SCH (08:04)
[2017-07-02] MEDS: FLUCONAZOLE 100 MG TABLET PO SCH (08:04)
[2017-07-02] MEDS: CALCIUM ACETATE 667 MG CAPSULE PO SCH ×3 (08:07→17:08)
[2017-07-02] MEDS: carBAMazepine 200 MG TABLET PO SCH ×2 (08:12→21:00)
[2017-07-02] MEDS: QUEtiapine FUMARATE 25 MG TABLET PO SCH ×2 (08:12→20:59)
[2017-07-02] MEDS: PYRIDOXINE HCL (VITAMIN B6) 25 MG TABLET PO SCH (08:13)
[2017-07-02] MEDS: METHENAMINE MANDELATE 1 GM TABLET PO SCH ×2 (08:13→21:01)
[2017-07-02] MEDS: Coenzyme Q10 100 MG PO SCH (10:35)
[2017-07-02] MEDS ORDERED: COD LIVER OIL/ZINC OXIDE 113 APPL TUBE TP PRN ×3 (11:05→14:17)
[2017-07-02] MEDS: cefTRIAXone SODIUM 1,000 MG in DEXTROSE 5 % IN WATER 50 ML IV SCH ×2 (17:16)
[2017-07-02 19:07] LABS: Albumin * 2.1 gm/dl (3.4-5.0); Anion Gap 19.2 mmol/L (6.8-13.8); BUN/Creatinine Ratio 17.7 (9.0-21.6); Bilirubin, Total 0.5 mg/dL (0.0-1.1); Calcium * 7.8 mg/dL (7.9-10.9); Carbon Dioxide 13.4 mmol/L (24-32.6); Phosphorus 3.3 mg/dL (2.2-4.2); Potassium 4.6 mmol/L (3.4-4.6); Total Protein 6.9 gm/dL (6.2-8.2); Uric Acid 6.2 mg/dL (2.6-7.2)
[2017-07-02] MEDS: PARoxetine HCL 20 MG TABLET PO SCH (20:58)
[2017-07-02] MEDS: DOXEPIN HCL 10 MG CAPSULE PO SCH (20:59)
[2017-07-02] MEDS: INSULIN GLARGINE,HUM.REC.ANLOG 100 UNITS/ML VIAL SC SCH (21:07)
--- NOTE | 2017-07-02 23:53 | PN ---
Subjective - Date and Time Seen Date: 07/02/17 Time: 17:45 Subjective Narrative: No concerns. No fever, chills, N/V. Having good urine output. Objective - Vitals Vitals: Last Vital Signs Temp 36.7 C 07/02/17 17:30 Pulse 71 07/02/17 17:30 Resp 18 07/02/17 17:30 BP 158/76 07/02/17 17:30 Pulse Ox 98 07/02/17 17:30 - Abnormal Lab Findings Abnormal Lab Findings: Abnormal Lab Results 07/02/17 07/02/17 Range/Units 06:50 18:55 Sodium 143 H (132-142) mmol/L Plasma Sodium 143 H (130-142) mmol/L Chloride 115 H 107 H (97-106) mmol/L Carbon Dioxide 13.3 L 13.4 L (24-32.6) mmol/L Anion Gap 18.7 H 19.2 H (6.8-13.8) mmol/L BUN 40 H 39 H (6-23) mg/dL Creatinine 2.57 H D 2.20 H (0.4-1.4) mg/dL Est GFR (Non-Af Amer) 27 L D 33 L D (60-130) mL/min Random Glucose 167 H D (70-110) mg/dL Calcium 7.7 L 7.8 L (7.9-10.9) mg/dL AST 69 H (0-48) U/L Alkaline Phosphatase 305 H (50-170) U/L Albumin 2.1 L (3.4-5.0) gm/dl - Exam Constitutional: Present: Alert, Oriented x3, Cooperative ENT Exam: Present: hearing grossly normal Respiratory: Present: lungs clear, normal breath sounds Cardiovascular/Chest: Present: regular rate, rhythm, no murmur Abdomen: Present: Normal bowel sounds, soft, nontender, nondistended Cauti Physician Documentation - Urinary Catheter Management Urethral (Morales) Date of Insertion: 06/28/17 Assessment/Plan Plan Narrative: Improving creatinine since morales placed. Creatinine down from 4 to 2. Continue to monitor. - Problems/Diagnosis (1) Acute renal failure Problem: Resolved Qualifiers: Acute renal failure type: unspecified Qualified Code(s): N17.9 - Acute kidney failure, unspecified (2) UTI (urinary tract infection) Problem: Acute Qualifiers: Urinary tract infection type: site unspecified Hematuria presence: with hematuria Qualified Code(s): N39.0 - Urinary tract infection, site not specified
[2017-07-03] MEDS: INSULIN LISPRO 100 UNITS/ML VIAL SC SCH ×4 (07:15→20:22)
[2017-07-03] MEDS: LEVOTHYROXINE SODIUM 50 MCG TABLET PO SCH (07:19)
[2017-07-03] MEDS: PANTOPRAZOLE SODIUM 40 MG TABLET.EC PO SCH ×2 (07:19→17:11)
[2017-07-03 08:51] LABS: ALT 48 U/L (19-67); AST 40 U/L (0-48); Albumin * 1.9 gm/dl (3.4-5.0); Alkaline Phosphatase * 250 U/L (50-170); BUN/Creatinine Ratio 19.4 (9.0-21.6); Bilirubin, Total 0.4 mg/dL (0.0-1.1); Blood Urea Nitrogen 37 mg/dL (6-23); Ca. Corrected For Albumin 8.9 mg/dL (8.4-10.2); Calcium * 7.5 mg/dL (7.9-10.9); Carbon Dioxide 14.2 mmol/L (24-32.6); Chloride 110 mmol/L (97-106); Glucose * 116 mg/dL (70-110); Hematocrit 27.5 % (42.0-52.0); Hemoglobin 9.3 gm/dL (13.5-18.0); Mean Cell Volume 95.5 fl (78-100); Mean Corpuscular Hemoglobin 32.3 pg (27-31); Mean Corpuscular Hgb Conc 33.8 g/dl (32-36); Mean Platelet Volume 10.2 fl (6.0-9.5); Neutrophil # 4.6 K/mm3 (1.3-6.0); Neutrophil % 77.8 % (42-75.0); Phosphorus 3.7 mg/dL (2.2-4.2); Platelet Count 307 K/mm3 (150-450); Potassium 4.2 mmol/L (3.4-4.6); Red Blood Count 2.88 M/mm3 (4.7-6.0); Red Cell Distribution Width 22.7 % (11.5-14.0); Sodium 138 mmol/L (132-142); Total Protein 6.2 gm/dL (6.2-8.2)
[2017-07-03] MEDS: QUEtiapine FUMARATE 25 MG TABLET PO SCH ×2 (09:47→20:15)
[2017-07-03] MEDS: PHENYTOIN SODIUM EXTENDED 100 MG CAPSULE PO SCH ×2 (09:47→17:10)
[2017-07-03] MEDS: PYRIDOXINE HCL (VITAMIN B6) 25 MG TABLET PO SCH (09:47)
[2017-07-03] MEDS: CALCIUM POLYCARBOPHIL 625 MG TABLET PO SCH ×3 (09:47→17:11)
[2017-07-03] MEDS: sitaGLIPtin PHOSPHATE 50 MG TABLET PO SCH (09:48)
[2017-07-03] MEDS: METHENAMINE MANDELATE 1 GM TABLET PO SCH ×2 (09:48→20:16)
[2017-07-03] MEDS: PROPRANOLOL HCL 60 MG CAPSULE.SA PO SCH (09:48)
[2017-07-03] MEDS: carBAMazepine 200 MG TABLET PO SCH ×2 (09:48→20:16)
[2017-07-03] MEDS: LIOTHYRONINE SODIUM 5 MCG TABLET PO SCH (09:49)
[2017-07-03] MEDS: FLUCONAZOLE 100 MG TABLET PO SCH (09:49)
[2017-07-03] MEDS: SACCHAROMYCES BOULARDII 250 MG CAPSULE PO SCH ×2 (09:49→20:14)
[2017-07-03] MEDS: busPIRone HCL 5 MG TABLET PO SCH ×2 (09:49→20:14)
[2017-07-03] MEDS: Deferasirox [Jadenu] 360 MG PO SCH ×2 (09:50→20:14)
[2017-07-03] MEDS: Coenzyme Q10 100 MG PO SCH (09:51)
[2017-07-03] MEDS: PARoxetine HCL 20 MG TABLET PO SCH (20:15)
[2017-07-03] MEDS: DOXEPIN HCL 10 MG CAPSULE PO SCH (20:15)
[2017-07-03] MEDS: INSULIN GLARGINE,HUM.REC.ANLOG 100 UNITS/ML VIAL SC SCH (20:26)
--- NOTE | 2017-07-03 22:38 | PN ---
Subjective - Date and Time Seen Date: 07/03/17 Time: 16:48 Subjective Narrative: Doing well, no concerns. No fever, chills, nausea, or vomiting. Objective - Vitals Vitals: Last Vital Signs Temp 36.8 C 07/03/17 19:48 Pulse 70 07/03/17 19:48 Resp 18 07/03/17 19:48 BP 149/79 07/03/17 19:48 Pulse Ox 100 07/03/17 19:48 - Abnormal Lab Findings Abnormal Lab Findings: Abnormal Lab Results 07/03/17 07/03/17 Range/Units 08:33 08:33 RBC 2.88 L (4.7-6.0) M/mm3 Hgb 9.3 L (13.5-18.0) gm/dL Hct 27.5 L (42.0-52.0) % MCH 32.3 H (27-31) pg RDW 22.7 H (11.5-14.0) % MPV 10.2 H (6.0-9.5) fl Immature Gran % (Auto) 1.00 H (0.001-0.429) % Immature Gran # (Auto) 0.06 H (0.000-0.0310) K/mm3 Neutrophils % 77.8 H (42-75.0) % Lymphocytes % 11.4 L (20-51) % Basophils % 1.2 H (0.0-1.0) % Lymphocytes # 0.7 L (1.5-3.5) k/mm3 Chloride 110 H (97-106) mmol/L Carbon Dioxide 14.2 L (24-32.6) mmol/L Anion Gap 18.0 H (6.8-13.8) mmol/L BUN 37 H (6-23) mg/dL Creatinine 1.91 H (0.4-1.4) mg/dL Est GFR (Non-Af Amer) 38 L (60-130) mL/min Random Glucose 116 H D (70-110) mg/dL Calcium 7.5 L (7.9-10.9) mg/dL Alkaline Phosphatase 250 H (50-170) U/L Albumin 1.9 L (3.4-5.0) gm/dl - Exam Constitutional: Present: Alert, Oriented x3, Cooperative ENT Exam: Present: hearing grossly normal Respiratory: Present: lungs clear, normal breath sounds Cardiovascular/Chest: Present: regular rate, rhythm, no murmur Abdomen: Present: Normal bowel sounds, soft, nontender, nondistended Skin Exam: Present: normal color, warm/dry, no cyanosis Cauti Physician Documentation - Urinary Catheter Management Urethral (Morales) Date of Insertion: 06/28/17 Assessment/Plan Plan Narrative: Creatinine continues to improve. Renal failure secondary to urethral stenosis. Plan is to keep morales in for 1-2 weeks to dilate urethra, then follow up with urology. - Problems/Diagnosis (1) Acute renal failure Problem: Resolved Qualifiers: Acute renal failure type: unspecified Qualified Code(s): N17.9 - Acute kidney failure, unspecified (2) UTI (urinary tract infection) Problem: Acute Qualifiers: Urinary tract infection type: site unspecified Hematuria presence: with hematuria Qualified Code(s): N39.0 - Urinary tract infection, site not specified (3) Type 2 diabetes mellitus Problem: Chronic (4) Urethral stenosis Problem: Chronic
[2017-07-04] MEDS: INSULIN LISPRO 100 UNITS/ML VIAL SC SCH ×4 (06:52→20:57)
[2017-07-04] MEDS: LEVOTHYROXINE SODIUM 50 MCG TABLET PO SCH (06:53)
[2017-07-04] MEDS: PANTOPRAZOLE SODIUM 40 MG TABLET.EC PO SCH ×2 (06:53→17:05)
[2017-07-04 08:15] LABS: Hematocrit 26.7 % (42.0-52.0); Hemoglobin 8.6 gm/dL (13.5-18.0); Mean Cell Volume 98.9 fl (78-100); Mean Corpuscular Hemoglobin 31.9 pg (27-31); Mean Corpuscular Hgb Conc 32.2 g/dl (32-36); Mean Platelet Volume 10.1 fl (6.0-9.5); Neutrophil # 3.7 K/mm3 (1.3-6.0); Neutrophil % 76.2 % (42-75.0); Platelet Count 259 K/mm3 (150-450); White Blood Count 4.8 K/mm3 (4.0-10.5)
[2017-07-04 08:36] LABS: Albumin * 1.7 gm/dl (3.4-5.0); Anion Gap 15.5 mmol/L (6.8-13.8); BUN/Creatinine Ratio 21.7 (9.0-21.6); Bilirubin, Total 0.4 mg/dL (0.0-1.1); Calcium * 7.5 mg/dL (7.9-10.9); Carbon Dioxide 15.7 mmol/L (24-32.6); Phosphorus 3.5 mg/dL (2.2-4.2); Potassium 4.2 mmol/L (3.4-4.6)
[2017-07-04] MEDS: LIOTHYRONINE SODIUM 5 MCG TABLET PO SCH (09:30)
[2017-07-04] MEDS: Deferasirox [Jadenu] 360 MG PO SCH ×2 (09:30→20:49)
[2017-07-04] MEDS: busPIRone HCL 5 MG TABLET PO SCH ×2 (09:30→20:48)
[2017-07-04] MEDS: PHENYTOIN SODIUM EXTENDED 100 MG CAPSULE PO SCH ×2 (09:30→17:04)
[2017-07-04] MEDS: FLUCONAZOLE 100 MG TABLET PO SCH (09:30)
[2017-07-04] MEDS: PROPRANOLOL HCL 60 MG CAPSULE.SA PO SCH (09:31)
[2017-07-04] MEDS: SACCHAROMYCES BOULARDII 250 MG CAPSULE PO SCH ×2 (09:31→20:50)
[2017-07-04] MEDS: QUEtiapine FUMARATE 25 MG TABLET PO SCH ×2 (09:31→20:51)
[2017-07-04] MEDS: sitaGLIPtin PHOSPHATE 50 MG TABLET PO SCH (09:31)
[2017-07-04] MEDS: CALCIUM POLYCARBOPHIL 625 MG TABLET PO SCH ×3 (09:31→17:04)
[2017-07-04] MEDS: Coenzyme Q10 100 MG PO SCH (09:32)
[2017-07-04] MEDS: carBAMazepine 200 MG TABLET PO SCH ×2 (09:32→20:52)
[2017-07-04] MEDS: PYRIDOXINE HCL (VITAMIN B6) 25 MG TABLET PO SCH (09:33)
[2017-07-04] MEDS: METHENAMINE MANDELATE 1 GM TABLET PO SCH ×2 (09:33→20:52)
[2017-07-04] MEDS: PARoxetine HCL 20 MG TABLET PO SCH (20:50)
[2017-07-04] MEDS: DOXEPIN HCL 10 MG CAPSULE PO SCH (20:52)
[2017-07-04] MEDS: INSULIN GLARGINE,HUM.REC.ANLOG 100 UNITS/ML VIAL SC SCH (20:57)
--- NOTE | 2017-07-04 23:50 | PN ---
Subjective - Date and Time Seen Date: 07/04/17 Time: 17:45 Subjective Narrative: No concern. No fever, chills, nausea, or vomiting. Objective - Vitals Vitals: Last Vital Signs Temp 36.8 C 07/04/17 23:32 Pulse 70 07/04/17 23:32 Resp 16 07/04/17 23:32 BP 142/72 07/04/17 23:32 Pulse Ox 98 07/04/17 23:32 - Abnormal Lab Findings Abnormal Lab Findings: Abnormal Lab Results 07/04/17 07/04/17 Range/Units 08:10 08:10 RBC 2.70 L (4.7-6.0) M/mm3 Hgb 8.6 L (13.5-18.0) gm/dL Hct 26.7 L (42.0-52.0) % MCH 31.9 H (27-31) pg RDW 23.0 H (11.5-14.0) % MPV 10.1 H (6.0-9.5) fl Immature Gran % (Auto) 1.00 H (0.001-0.429) % Immature Gran # (Auto) 0.05 H (0.000-0.0310) K/mm3 Neutrophils % 76.2 H (42-75.0) % Lymphocytes % 13.7 L (20-51) % Basophils % 1.2 H (0.0-1.0) % Lymphocytes # 0.7 L (1.5-3.5) k/mm3 Chloride 111 H (97-106) mmol/L Carbon Dioxide 15.7 L (24-32.6) mmol/L Anion Gap 15.5 H (6.8-13.8) mmol/L BUN 33 H (6-23) mg/dL Creatinine 1.52 H (0.4-1.4) mg/dL Est GFR (Non-Af Amer) 50 L D (60-130) mL/min BUN/Creatinine Ratio 21.7 H (9.0-21.6) Random Glucose 115 H (70-110) mg/dL Calcium 7.5 L (7.9-10.9) mg/dL Alkaline Phosphatase 239 H (50-170) U/L Total Protein 6.0 L (6.2-8.2) gm/dL Albumin 1.7 L (3.4-5.0) gm/dl - Exam Constitutional: Present: Alert, Oriented x3, Cooperative ENT Exam: Present: hearing grossly normal Respiratory: Present: lungs clear, normal breath sounds Cardiovascular/Chest: Present: regular rate, rhythm, no murmur Abdomen: Present: Normal bowel sounds, soft, nontender, nondistended Skin Exam: Present: normal color, warm/dry, no cyanosis Cauti Physician Documentation - Urinary Catheter Management Urethral (Morales) Date of Insertion: 06/28/17 Assessment/Plan Plan Narrative: Creatinine improved to 1.5 from >4. Continue to monitor with morales in place which has corrected Post renal failure secondary to urethral stenosis. - Problems/Diagnosis (1) Acute renal failure Problem: Resolved Qualifiers: Acute renal failure type: unspecified Qualified Code(s): N17.9 - Acute kidney failure, unspecified (2) UTI (urinary tract infection) Problem: Acute Qualifiers: Urinary tract infection type: site unspecified Hematuria presence: with hematuria Qualified Code(s): N39.0 - Urinary tract infection, site not specified (3) Type 2 diabetes mellitus Problem: Chronic (4) Urethral stenosis Problem: Chronic
[2017-07-05] MEDS: INSULIN LISPRO 100 UNITS/ML VIAL SC SCH ×4 (06:57→22:23)
[2017-07-05] MEDS: LEVOTHYROXINE SODIUM 50 MCG TABLET PO SCH (06:58)
[2017-07-05] MEDS: PANTOPRAZOLE SODIUM 40 MG TABLET.EC PO SCH ×2 (06:58→18:42)
[2017-07-05] MEDS: LIOTHYRONINE SODIUM 5 MCG TABLET PO SCH (08:22)
[2017-07-05] MEDS: busPIRone HCL 5 MG TABLET PO SCH ×2 (08:22→21:31)
[2017-07-05] MEDS: FLUCONAZOLE 100 MG TABLET PO SCH (08:23)
[2017-07-05] MEDS: Deferasirox [Jadenu] 360 MG PO SCH ×2 (08:23→21:34)
[2017-07-05] MEDS: PHENYTOIN SODIUM EXTENDED 100 MG CAPSULE PO SCH ×2 (08:24→18:40)
[2017-07-05] MEDS: CALCIUM POLYCARBOPHIL 625 MG TABLET PO SCH ×3 (08:24→18:41)
[2017-07-05] MEDS: SACCHAROMYCES BOULARDII 250 MG CAPSULE PO SCH ×2 (08:24→21:29)
[2017-07-05] MEDS: PROPRANOLOL HCL 60 MG CAPSULE.SA PO SCH (08:24)
[2017-07-05] MEDS: METHENAMINE MANDELATE 1 GM TABLET PO SCH ×2 (08:25→21:28)
[2017-07-05] MEDS: carBAMazepine 200 MG TABLET PO SCH ×2 (08:25→21:29)
[2017-07-05] MEDS: QUEtiapine FUMARATE 25 MG TABLET PO SCH ×2 (08:25→21:29)
[2017-07-05] MEDS: Coenzyme Q10 100 MG PO SCH (08:25)
[2017-07-05] MEDS: sitaGLIPtin PHOSPHATE 50 MG TABLET PO SCH (08:25)
[2017-07-05] MEDS: PYRIDOXINE HCL (VITAMIN B6) 25 MG TABLET PO SCH (08:25)
[2017-07-05 08:31] LABS: Hematocrit 26.4 % (42.0-52.0); Hemoglobin 8.7 gm/dL (13.5-18.0); Mean Cell Volume 97.4 fl (78-100); Mean Corpuscular Hemoglobin 32.1 pg (27-31); Neutrophil # 3.8 K/mm3 (1.3-6.0); Neutrophil % 77.8 % (42-75.0); Platelet Count 322 K/mm3 (150-450); Red Blood Count 2.71 M/mm3 (4.7-6.0); Red Cell Distribution Width 22.6 % (11.5-14.0); White Blood Count 4.9 K/mm3 (4.0-10.5)
[2017-07-05 08:45] LABS: Albumin * 1.8 gm/dl (3.4-5.0); Anion Gap 16.8 mmol/L (6.8-13.8); BUN/Creatinine Ratio 20.6 (9.0-21.6); Bilirubin, Total 0.4 mg/dL (0.0-1.1); Ca. Corrected For Albumin 9.3 mg/dL (8.4-10.2); Calcium * 7.9 mg/dL (7.9-10.9); Carbon Dioxide 15.7 mmol/L (24-32.6); Potassium 4.5 mmol/L (3.4-4.6); Total Protein 6.4 gm/dL (6.2-8.2)
[2017-07-05] MEDS: DOXEPIN HCL 10 MG CAPSULE PO SCH (21:30)
[2017-07-05] MEDS: PARoxetine HCL 20 MG TABLET PO SCH (21:30)
[2017-07-05] MEDS: INSULIN GLARGINE,HUM.REC.ANLOG 100 UNITS/ML VIAL SC SCH (22:24)
--- NOTE | 2017-07-05 23:42 | PN ---
Subjective - Date and Time Seen Date: 07/05/17 Time: 12:35 Subjective Narrative: No concerns. No fever, chills, nausea, or vomiting. Patient is weak, declines to walk in [place]. Objective - Vitals Vitals: Last Vital Signs Temp 37.0 C 07/05/17 20:27 Pulse 70 07/05/17 20:27 Resp 18 07/05/17 20:27 BP 157/68 07/05/17 20:27 Pulse Ox 98 07/05/17 20:27 - Abnormal Lab Findings Abnormal Lab Findings: Abnormal Lab Results 07/05/17 07/05/17 Range/Units 08:20 08:20 RBC 2.71 L (4.7-6.0) M/mm3 Hgb 8.7 L (13.5-18.0) gm/dL Hct 26.4 L (42.0-52.0) % MCH 32.1 H (27-31) pg RDW 22.6 H (11.5-14.0) % Immature Gran % (Auto) 1.00 H (0.001-0.429) % Immature Gran # (Auto) 0.05 H (0.000-0.0310) K/mm3 Neutrophils % 77.8 H (42-75.0) % Lymphocytes % 13.9 L (20-51) % Lymphocytes # 0.7 L (1.5-3.5) k/mm3 Chloride 111 H (97-106) mmol/L Carbon Dioxide 15.7 L (24-32.6) mmol/L Anion Gap 16.8 H (6.8-13.8) mmol/L BUN 26 H (6-23) mg/dL Random Glucose 112 H (70-110) mg/dL AST 80 H (0-48) U/L Alkaline Phosphatase 286 H (50-170) U/L Albumin 1.8 L (3.4-5.0) gm/dl - Exam Constitutional: Present: Alert, Oriented x3, Cooperative ENT Exam: Present: hearing grossly normal Respiratory: Present: lungs clear, normal breath sounds Cardiovascular/Chest: Present: regular rate, rhythm, no murmur Abdomen: Present: Normal bowel sounds, soft, nontender, nondistended Skin Exam: Present: normal color, warm/dry, no cyanosis Cauti Physician Documentation - Urinary Catheter Management Urethral (Morales) Date of Insertion: 06/28/17 Assessment/Plan Plan Narrative: Acute renal failure resolved with morales catheter. Developed due to urethral stenosis. Urology recommends 1-2 weeks of morales to dilate urethra. Patient is unable to return to [facility] due to higher level of medical need with morales catheter and weakness. Looking into placement. - Problems/Diagnosis (1) Acute renal failure Problem: Resolved Qualifiers: Acute renal failure type: unspecified Qualified Code(s): N17.9 - Acute kidney failure, unspecified (2) UTI (urinary tract infection) Problem: Acute Qualifiers: Urinary tract infection type: site unspecified Hematuria presence: with hematuria Qualified Code(s): N39.0 - Urinary tract infection, site not specified (3) Type 2 diabetes mellitus Problem: Chronic (4) Urethral stenosis Problem: Chronic
[2017-07-06] MEDS: INSULIN LISPRO 100 UNITS/ML VIAL SC SCH ×4 (07:22→21:19)
[2017-07-06] MEDS: LEVOTHYROXINE SODIUM 50 MCG TABLET PO SCH (07:24)
[2017-07-06] MEDS: PANTOPRAZOLE SODIUM 40 MG TABLET.EC PO SCH ×2 (07:24→17:03)
[2017-07-06] MEDS: busPIRone HCL 5 MG TABLET PO SCH ×2 (08:35→21:24)
[2017-07-06] MEDS: Deferasirox [Jadenu] 360 MG PO SCH ×2 (08:35→21:24)
[2017-07-06] MEDS: LIOTHYRONINE SODIUM 5 MCG TABLET PO SCH (08:35)
[2017-07-06] MEDS: SACCHAROMYCES BOULARDII 250 MG CAPSULE PO SCH ×2 (08:36→21:24)
[2017-07-06] MEDS: PHENYTOIN SODIUM EXTENDED 100 MG CAPSULE PO SCH ×2 (08:36→17:02)
[2017-07-06] MEDS: FLUCONAZOLE 100 MG TABLET PO SCH (08:36)
[2017-07-06] MEDS: CALCIUM POLYCARBOPHIL 625 MG TABLET PO SCH ×3 (08:36→17:03)
[2017-07-06] MEDS: PROPRANOLOL HCL 60 MG CAPSULE.SA PO SCH (08:37)
[2017-07-06] MEDS: sitaGLIPtin PHOSPHATE 50 MG TABLET PO SCH (08:37)
[2017-07-06] MEDS: QUEtiapine FUMARATE 25 MG TABLET PO SCH ×2 (08:37→21:25)
[2017-07-06] MEDS: Coenzyme Q10 100 MG PO SCH (08:38)
[2017-07-06] MEDS: METHENAMINE MANDELATE 1 GM TABLET PO SCH ×2 (08:38→21:27)
[2017-07-06] MEDS: carBAMazepine 200 MG TABLET PO SCH ×2 (08:38→21:26)
[2017-07-06] MEDS: PYRIDOXINE HCL (VITAMIN B6) 25 MG TABLET PO SCH (08:38)
[2017-07-06] MEDS: INSULIN GLARGINE,HUM.REC.ANLOG 100 UNITS/ML VIAL SC SCH (21:21)
[2017-07-06] MEDS: PARoxetine HCL 20 MG TABLET PO SCH (21:25)
[2017-07-06] MEDS: DOXEPIN HCL 10 MG CAPSULE PO SCH (21:26)
--- NOTE | 2017-07-06 23:55 | PN ---
Subjective - Date and Time Seen Date: 07/06/17 Time: 22:00 Subjective Narrative: patient seen sitting up in chair, he is very talkative and eager to have company in the room. pt stated he feels well and nothing hurt. Objective - Review of Systems Generalized/Overall Review: Reports: No Symptoms Reported EENTM: Reports: No Symptoms Reported Respiratory: Reports: No Symptoms Reported Cardiac: Reports: No Symptoms Reported Abdominal: Reports: No Symptoms Reported Genitourinary Symptoms: Reports: No Symptoms Reported Musculoskeletal Complaints: Reports: No Symptoms Reported Neurological: Reports: No Symptoms Reported Skin: Reports: No Symptoms Reported Endocrine: Reports: No Symptoms Reported - Vitals Vitals: Last Vital Signs Temp 36.7 C 07/06/17 19:21 Pulse 70 07/06/17 19:21 Resp 18 07/06/17 19:21 BP 151/74 07/06/17 19:21 Pulse Ox 100 07/06/17 19:21 - Exam Constitutional: Present: Oriented x3, Cooperative, No distress, Obese ENT Exam: Present: hearing grossly normal Neck: Present: full range of motion Respiratory: Present: chest non-tender, lungs clear, normal breath sounds, no respiratory distress Cardiovascular/Chest: Present: normal peripheral pulses, no chest tenderness, no gallop, edema Abdomen: Present: Normal bowel sounds, soft, nontender, nondistended, no rebound tenderness /Rectal: Present: Other - Morales cath Extremity: Present: normal range of motion, non-tender, normal inspection, lower extremity edema, slow capillary refill Skin Exam: Present: normal color, warm/dry Lymphatic: Present: no adenopathy Neurologic: Present: normal mood/affect, oriented x 3 Appearance: Present: impaired remote memory Eye contact: Present: good eye contact Thoughts: Present: no apparent hallucination Cauti Physician Documentation - Urinary Catheter Management Urethral (Morales) Urethral Indwelling: Yes Date of Insertion: 06/28/17 Assessment/Plan Plan Narrative: Acute Renal Failure- Improving His baseline creatinine is usually below 1.00 & on DOA, On adm Bun/Cr--> 38/2.79. LINDA the Initially thought to be pre-renal due to dehydration from vomiting and diarrhea He was rehydrate and urine out put improved with morales (Bun/ cre 26/1.26) Renal US obtained and results showed: no Obstructive uropathy or hydronephrosis , however, the LT kidney was noted to be atrophic and much smaller than the RT kidney and there was non-specific bladder wall thickening. Avoid nephrotoxic agents Urinary retention- improving 06/28/17 S/P Cystoscopy bladder irrigation with urethral dilation: secondary to Urethral stricture 16F Morales cath was placed and kidney function and urine out-put gradually improve. Continue with urex Aplastic Anemia- Has hx of Myelodysplastic syndrome and periodically receives blood transfusion. 06/27/17 S/P 2 units of PRBC due to hgb of 7.0/21.4 ---->8.7/26.4 Continue Jadenu. Chronic stable Conditions- Epilepsy- Dilantin and carbamazepine GERD HTN HLD Code status:Full GI ppx:Protonix VTE ppx:Ambulate Time 25 minutes - Problems/Diagnosis (1) Acute renal failure Problem: Acute Qualifiers: Acute renal failure type: unspecified Qualified Code(s): N17.9 - Acute kidney failure, unspecified (2) Aplastic anemia Problem: Chronic (3) Dehydration Problem: Resolved (4) HTN (hypertension) Problem: Chronic (5) Urethral stricture Problem: Chronic Qualifiers: Urethral stricture sex-location: male urethra-bulbous (6) Urinary retention Problem: Resolved (7) GERD (gastroesophageal reflux disease) Problem: Chronic (8) HLD (hyperlipidemia) Problem: Chronic (9) HTN (hypertension) Problem: Chronic (10) Type 2 diabetes mellitus Problem: Chronic
[2017-07-07] MEDS: INSULIN LISPRO 100 UNITS/ML VIAL SC SCH ×4 (07:09→21:38)
[2017-07-07] MEDS: LEVOTHYROXINE SODIUM 50 MCG TABLET PO SCH (07:10)
[2017-07-07] MEDS: PANTOPRAZOLE SODIUM 40 MG TABLET.EC PO SCH ×2 (07:10→16:58)
[2017-07-07] MEDS: busPIRone HCL 5 MG TABLET PO SCH ×2 (09:53→21:41)
[2017-07-07] MEDS: CALCIUM POLYCARBOPHIL 625 MG TABLET PO SCH ×3 (09:53→16:58)
[2017-07-07] MEDS: Deferasirox [Jadenu] 360 MG PO SCH ×2 (09:53→21:39)
[2017-07-07] MEDS: FLUCONAZOLE 100 MG TABLET PO SCH (09:53)
[2017-07-07] MEDS: LIOTHYRONINE SODIUM 5 MCG TABLET PO SCH (09:53)
[2017-07-07] MEDS: PHENYTOIN SODIUM EXTENDED 100 MG CAPSULE PO SCH ×2 (09:53→16:59)
[2017-07-07] MEDS: QUEtiapine FUMARATE 25 MG TABLET PO SCH ×2 (09:54→21:40)
[2017-07-07] MEDS: SACCHAROMYCES BOULARDII 250 MG CAPSULE PO SCH ×2 (09:54→21:40)
[2017-07-07] MEDS: carBAMazepine 200 MG TABLET PO SCH ×2 (09:54→21:42)
[2017-07-07] MEDS: sitaGLIPtin PHOSPHATE 50 MG TABLET PO SCH (09:54)
[2017-07-07] MEDS: PROPRANOLOL HCL 60 MG CAPSULE.SA PO SCH (09:54)
[2017-07-07] MEDS: Coenzyme Q10 100 MG PO SCH (09:55)
[2017-07-07] MEDS: METHENAMINE MANDELATE 1 GM TABLET PO SCH ×2 (09:55→21:42)
[2017-07-07] MEDS: PYRIDOXINE HCL (VITAMIN B6) 25 MG TABLET PO SCH (09:55)
[2017-07-07] MEDS: DOXEPIN HCL 10 MG CAPSULE PO SCH (21:41)
[2017-07-07] MEDS: PARoxetine HCL 20 MG TABLET PO SCH (21:41)
[2017-07-07] MEDS: INSULIN GLARGINE,HUM.REC.ANLOG 100 UNITS/ML VIAL SC SCH (21:45)
[2017-07-08 05:59] LABS: Hematocrit 25.5 % (42.0-52.0); Hemoglobin 8.3 gm/dL (13.5-18.0); Mean Corpuscular Hemoglobin 32.5 pg (27-31); Mean Corpuscular Hgb Conc 32.5 g/dl (32-36); Neutrophil # 3.4 K/mm3 (1.3-6.0); Neutrophil % 72.1 % (42-75.0); Platelet Count 378 K/mm3 (150-450); Red Blood Count 2.55 M/mm3 (4.7-6.0); White Blood Count 4.7 K/mm3 (4.0-10.5)
[2017-07-08 06:15] LABS: Albumin * 1.9 gm/dl (3.4-5.0); Anion Gap 14.9 mmol/L (6.8-13.8); BUN/Creatinine Ratio 25.3 (9.0-21.6); Bilirubin, Total 0.2 mg/dL (0.0-1.1); Ca. Corrected For Albumin 9.4 mg/dL (8.4-10.2); Potassium 4.9 mmol/L (3.4-4.6); Total Protein 6.6 gm/dL (6.2-8.2)
--- NOTE | 2017-07-08 06:17 | PN ---
Subjective - Date and Time Seen Date: 07/07/17 Time: 06:12 Subjective Narrative: patient was seen sitting up in bed , he has no new complaints and eager to have breakfast. Objective - Review of Systems Generalized/Overall Review: Reports: No Symptoms Reported EENTM: Reports: No Symptoms Reported Respiratory: Reports: No Symptoms Reported Cardiac: Reports: No Symptoms Reported Abdominal: Reports: No Symptoms Reported Genitourinary Symptoms: Reports: No Symptoms Reported Musculoskeletal Complaints: Reports: No Symptoms Reported Neurological: Reports: No Symptoms Reported Skin: Reports: No Symptoms Reported - Vitals Vitals: Last Vital Signs Temp 36.2 C L 07/08/17 05:00 Pulse 72 07/08/17 05:00 Resp 20 07/08/17 05:00 BP 148/73 07/08/17 05:00 Pulse Ox 92 07/08/17 05:00 - Abnormal Lab Findings Abnormal Lab Findings: Abnormal Lab Results 07/08/17 Range/Units 05:52 RBC 2.55 L (4.7-6.0) M/mm3 Hgb 8.3 L (13.5-18.0) gm/dL Hct 25.5 L (42.0-52.0) % MCH 32.5 H (27-31) pg RDW 22.0 H (11.5-14.0) % MPV 10.0 H (6.0-9.5) fl Immature Gran % (Auto) 0.60 H (0.001-0.429) % Lymphocytes % 18.6 L (20-51) % Basophils % 1.7 H (0.0-1.0) % Lymphocytes # 0.9 L (1.5-3.5) k/mm3 - Exam Constitutional: Present: Alert, Oriented x3, Cooperative ENT Exam: Present: hearing grossly normal Neck: Present: full range of motion Respiratory: Present: chest non-tender, lungs clear, normal breath sounds, no respiratory distress Cardiovascular/Chest: Present: normal peripheral pulses, no chest tenderness, edema Abdomen: Present: Normal bowel sounds, soft, nontender, nondistended /Rectal: Present: Other - morales cath Extremity: Present: normal range of motion, non-tender, normal inspection, lower extremity edema Skin Exam: Present: normal color, warm/dry Neurologic: Present: alert Appearance: Present: impaired remote memory Eye contact: Present: good eye contact Cauti Physician Documentation - Urinary Catheter Management Urethral (Morales) Urethral Indwelling: Yes Date of Insertion: 06/28/17 Assessment/Plan Plan Narrative: Aplastic Anemia- hgb remain stable Has hx of Myelodysplastic syndrome and periodically receives blood transfusion. 06/27/17 S/P 2 units of PRBC due to hgb of 7.0/21.4 ---->8.7/26.4 Continue Jadenu. Acute Renal Failure- Improving His baseline creatinine is usually below 1.00 & on DOA, On adm Bun/Cr--> 38/2.79. LINDA the Initially thought to be pre-renal due to dehydration from vomiting and diarrhea He was rehydrate and urine out put improved with morales cath (Bun/ cre 26/1.26) Renal US obtained and results showed: no Obstructive uropathy or hydronephrosis , however, the LT kidney was noted to be atrophic and much smaller than the RT kidney and there was non-specific bladder wall thickening. Avoid nephrotoxic agents Urinary retention- improving 06/28/17 S/P Cystoscopy bladder irrigation with urethral dilation: secondary to Urethral stricture 16F Morales cath was placed and kidney function and urine out-put contiue to gradually improve. Continue with urex Chronic stable Conditions- Epilepsy- Dilantin and carbamazepine GERD HTN HLD Code status:Full GI ppx:Protonix VTE ppx:Ambulate Time 20 minutes - Problems/Diagnosis (1) Acute renal failure Problem: Acute Qualifiers: Acute renal failure type: unspecified Qualified Code(s): N17.9 - Acute kidney failure, unspecified (2) Aplastic anemia Problem: Chronic (3) Dehydration Problem: Resolved (4) HTN (hypertension) Problem: Chronic (5) Urethral stricture Problem: Chronic Qualifiers: Urethral stricture sex-location: male urethra-bulbous (6) Urinary retention Problem: Resolved (7) GERD (gastroesophageal reflux disease) Problem: Chronic (8) HLD (hyperlipidemia) Problem: Chronic (9) HTN (hypertension) Problem: Chronic (10) Type 2 diabetes mellitus Problem: Chronic
[2017-07-08] MEDS: INSULIN LISPRO 100 UNITS/ML VIAL SC SCH ×4 (07:10→21:45)
[2017-07-08] MEDS: PANTOPRAZOLE SODIUM 40 MG TABLET.EC PO SCH ×2 (07:22→17:28)
[2017-07-08] MEDS: LEVOTHYROXINE SODIUM 50 MCG TABLET PO SCH (07:22)
[2017-07-08] MEDS: PHENYTOIN SODIUM EXTENDED 100 MG CAPSULE PO SCH ×2 (09:17→17:28)
[2017-07-08] MEDS: busPIRone HCL 5 MG TABLET PO SCH ×2 (09:17→21:44)
[2017-07-08] MEDS: PROPRANOLOL HCL 60 MG CAPSULE.SA PO SCH (09:18)
[2017-07-08] MEDS: SACCHAROMYCES BOULARDII 250 MG CAPSULE PO SCH ×2 (09:18→21:45)
[2017-07-08] MEDS: carBAMazepine 200 MG TABLET PO SCH ×2 (09:18→21:48)
[2017-07-08] MEDS: sitaGLIPtin PHOSPHATE 50 MG TABLET PO SCH (09:18)
[2017-07-08] MEDS: CALCIUM POLYCARBOPHIL 625 MG TABLET PO SCH ×3 (09:18→17:28)
[2017-07-08] MEDS: LIOTHYRONINE SODIUM 5 MCG TABLET PO SCH (09:18)
[2017-07-08] MEDS: PYRIDOXINE HCL (VITAMIN B6) 25 MG TABLET PO SCH (09:19)
[2017-07-08] MEDS: QUEtiapine FUMARATE 25 MG TABLET PO SCH ×2 (09:19→21:47)
[2017-07-08] MEDS: METHENAMINE MANDELATE 1 GM TABLET PO SCH ×2 (09:19→21:48)
[2017-07-08] MEDS: Deferasirox [Jadenu] 360 MG PO SCH ×2 (09:20→21:45)
[2017-07-08] MEDS: Coenzyme Q10 100 MG PO SCH (09:23)
[2017-07-08] MEDS: PARoxetine HCL 20 MG TABLET PO SCH (21:46)
[2017-07-08] MEDS: DOXEPIN HCL 10 MG CAPSULE PO SCH (21:47)
[2017-07-08] MEDS: INSULIN GLARGINE,HUM.REC.ANLOG 100 UNITS/ML VIAL SC SCH (21:49)
[2017-07-09] MEDS: PANTOPRAZOLE SODIUM 40 MG TABLET.EC PO SCH ×2 (07:53→16:08)
[2017-07-09] MEDS: LEVOTHYROXINE SODIUM 50 MCG TABLET PO SCH (07:53)
[2017-07-09] MEDS: INSULIN LISPRO 100 UNITS/ML VIAL SC SCH ×4 (07:58→22:32)
--- NOTE | 2017-07-09 08:02 | PN ---
Subjective - Date and Time Seen Date: 07/08/17 Time: 08:00 Subjective Narrative: Marc has no concerns. No fever, chills. No significant pain. Objective - Vitals Vitals: Last Vital Signs Selected Entries 07/08/17 06:30 Temperature 36.4 C L Pulse Rate 70 Respiratory 18 Rate Blood Pressure 148/61 O2 Sat by Pulse 97 Oximetry Oxygen Delivery Room Air Method - Exam Constitutional: Present: Alert, Oriented x3, Cooperative ENT Exam: Present: hearing grossly normal Respiratory: Present: lungs clear, normal breath sounds Cardiovascular/Chest: Present: regular rate, rhythm, no murmur, edema - 1+ bilateral Abdomen: Present: Normal bowel sounds, soft, nontender, nondistended Skin Exam: Present: normal color, warm/dry, no cyanosis Cauti Physician Documentation - Urinary Catheter Management Urethral (Morales) Urethral Indwelling: Yes Date of Insertion: 06/28/17 Assessment/Plan Plan Narrative: Marc is a 62 yo male with: 1) Urethral stenosis causing acute renal failure. With morales placement acute renal failure is resolved. Morales needs to remain in indefinitely. Plan to exchange for larger diameter catheter in the next 1-2 weeks. 2) Social - Patient has cognitive impairment and was a resident at [facility]. Due to increased medical needs with weakness and morales catheter patient is no longer able to return to [facility]. Looking into discharge planning with a higher level of nursing care. - Problems/Diagnosis (1) Urethral stricture Problem: Chronic Qualifiers: Urethral stricture sex-location: male urethra-bulbous (2) Acute renal failure Problem: Resolved Qualifiers: Acute renal failure type: unspecified Qualified Code(s): N17.9 - Acute kidney failure, unspecified (3) Urethral stenosis Problem: Chronic
[2017-07-09] MEDS: busPIRone HCL 5 MG TABLET PO SCH ×2 (08:36→20:03)
[2017-07-09] MEDS: Deferasirox [Jadenu] 360 MG PO SCH ×2 (08:38→20:04)
[2017-07-09] MEDS: CALCIUM POLYCARBOPHIL 625 MG TABLET PO SCH ×3 (08:39→16:08)
[2017-07-09] MEDS: PHENYTOIN SODIUM EXTENDED 100 MG CAPSULE PO SCH ×2 (08:39→16:08)
[2017-07-09] MEDS: PROPRANOLOL HCL 60 MG CAPSULE.SA PO SCH (08:40)
[2017-07-09] MEDS: SACCHAROMYCES BOULARDII 250 MG CAPSULE PO SCH ×2 (08:40→20:05)
[2017-07-09] MEDS: sitaGLIPtin PHOSPHATE 50 MG TABLET PO SCH (08:42)
[2017-07-09] MEDS: QUEtiapine FUMARATE 25 MG TABLET PO SCH ×2 (08:42→20:09)
[2017-07-09] MEDS: carBAMazepine 200 MG TABLET PO SCH ×2 (08:43→20:10)
[2017-07-09] MEDS: METHENAMINE MANDELATE 1 GM TABLET PO SCH ×2 (08:44→20:10)
[2017-07-09] MEDS: LIOTHYRONINE SODIUM 5 MCG TABLET PO SCH (08:44)
[2017-07-09] MEDS: PYRIDOXINE HCL (VITAMIN B6) 25 MG TABLET PO SCH (08:45)
[2017-07-09] MEDS: Coenzyme Q10 100 MG PO SCH (08:50)
[2017-07-09] MEDS: INSULIN GLARGINE,HUM.REC.ANLOG 100 UNITS/ML VIAL SC SCH (20:07)
[2017-07-09] MEDS: PARoxetine HCL 20 MG TABLET PO SCH (20:08)
[2017-07-09] MEDS: DOXEPIN HCL 10 MG CAPSULE PO SCH (20:09)
[2017-07-10] MEDS: INSULIN LISPRO 100 UNITS/ML VIAL SC SCH ×4 (06:47→21:46)
[2017-07-10] MEDS: LEVOTHYROXINE SODIUM 50 MCG TABLET PO SCH (06:48)
[2017-07-10] MEDS: PANTOPRAZOLE SODIUM 40 MG TABLET.EC PO SCH ×2 (06:48→17:58)
[2017-07-10] MEDS: METHENAMINE MANDELATE 1 GM TABLET PO SCH ×2 (08:33→21:35)
[2017-07-10] MEDS: busPIRone HCL 5 MG TABLET PO SCH ×2 (08:34→21:26)
[2017-07-10] MEDS: CALCIUM POLYCARBOPHIL 625 MG TABLET PO SCH ×3 (08:34→17:58)
[2017-07-10] MEDS: PHENYTOIN SODIUM EXTENDED 100 MG CAPSULE PO SCH ×2 (08:34→17:58)
[2017-07-10] MEDS: PYRIDOXINE HCL (VITAMIN B6) 25 MG TABLET PO SCH (08:34)
[2017-07-10] MEDS: LIOTHYRONINE SODIUM 5 MCG TABLET PO SCH (08:34)
[2017-07-10] MEDS: sitaGLIPtin PHOSPHATE 50 MG TABLET PO SCH (08:34)
[2017-07-10] MEDS: QUEtiapine FUMARATE 25 MG TABLET PO SCH ×2 (08:35→21:30)
[2017-07-10] MEDS: Deferasirox [Jadenu] 360 MG PO SCH ×2 (08:35→21:27)
[2017-07-10] MEDS: carBAMazepine 200 MG TABLET PO SCH ×2 (08:35→21:34)
[2017-07-10] MEDS: SACCHAROMYCES BOULARDII 250 MG CAPSULE PO SCH ×2 (08:35→21:28)
[2017-07-10] MEDS: Coenzyme Q10 100 MG PO SCH (08:36)
[2017-07-10] MEDS: PROPRANOLOL HCL 60 MG CAPSULE.SA PO SCH (08:40)
[2017-07-10] MEDS: PARoxetine HCL 20 MG TABLET PO SCH (21:28)
[2017-07-10] MEDS: DOXEPIN HCL 10 MG CAPSULE PO SCH (21:34)
[2017-07-10] MEDS: INSULIN GLARGINE,HUM.REC.ANLOG 100 UNITS/ML VIAL SC SCH (21:37)
--- NOTE | 2017-07-10 23:38 | PN ---
Subjective - Date and Time Seen Date: 07/09/17 Time: 16:32 Subjective Narrative: No concerns per patient. No fever, chills, nausea, or vomiting. No nursing concerns. Objective - Vitals Vitals: Last Vital Signs Selected Entries 07/09/17 14:26 Temperature 36.4 C L Pulse Rate 71 Respiratory 18 Rate Blood Pressure 136/78 O2 Sat by Pulse 96 Oximetry Oxygen Delivery Room Air Method - Exam Constitutional: Present: Alert, Oriented x3, Cooperative ENT Exam: Present: hearing grossly normal Respiratory: Present: lungs clear, normal breath sounds Cardiovascular/Chest: Present: regular rate, rhythm, no murmur Abdomen: Present: Normal bowel sounds, soft, nontender, nondistended Skin Exam: Present: normal color, warm/dry, no cyanosis Cauti Physician Documentation - Urinary Catheter Management Urethral (Morales) Urethral Indwelling: Yes Date of Insertion: 06/28/17 Assessment/Plan Plan Narrative: Renal failure resolved. Monitoring urine output. Unable to return to [facility] due to higher medical needs with morales. Working to strengthen patient with therapy. Patient has higher medical and social needs due to cognitive impairment , need for strenghtening, and needed for morales cares. - Problems/Diagnosis (1) Urethral stricture Problem: Chronic Qualifiers: Urethral stricture sex-location: male urethra-bulbous (2) Acute renal failure Problem: Resolved Qualifiers: Acute renal failure type: unspecified Qualified Code(s): N17.9 - Acute kidney failure, unspecified (3) Urethral stenosis Problem: Chronic
--- NOTE | 2017-07-10 23:39 | PN ---
Subjective - Date and Time Seen Date: 07/10/17 Time: 17:20 Subjective Narrative: Doing well. No fever, chills, nausea, or vomiting. Objective Objective Narrative: Discussed with urology at [facility]. Patient has had morales long enough for a trial of removal. Will remove catheter and if able to urinate he is ok for discharge tomorrow and follow up with urology outpatient. No fever, chills, n/v. - Vitals Vitals: Last Vital Signs Temp 36.6 C 07/10/17 15:06 Pulse 67 07/10/17 15:06 Resp 16 07/10/17 15:06 BP 141/77 07/10/17 15:06 Pulse Ox 99 07/10/17 15:06 - Exam Constitutional: Present: Alert, Oriented x3, Cooperative ENT Exam: Present: hearing grossly normal Respiratory: Present: lungs clear, normal breath sounds Cardiovascular/Chest: Present: regular rate, rhythm, no murmur Abdomen: Present: Normal bowel sounds, soft, nontender, nondistended Extremity: Present: normal inspection Skin Exam: Present: normal color, warm/dry, no cyanosis Cauti Physician Documentation - Urinary Catheter Management Urethral (Morales) Urethral Indwelling: Yes Date of Insertion: 06/28/17 Assessment/Plan Plan Narrative: Marc is doing well. Renal failure resolved. Urology is ok with removal of morales and a trial without. If able to urinate on his own, ok to discharge to home tomorrow. - Problems/Diagnosis (1) Acute renal failure Problem: Resolved Qualifiers: Acute renal failure type: unspecified Qualified Code(s): N17.9 - Acute kidney failure, unspecified (2) Urethral stricture Problem: Chronic Qualifiers: Urethral stricture sex-location: male urethra-bulbous (3) Urethral stenosis Problem: Chronic (4) UTI (urinary tract infection) Problem: Acute Qualifiers: Urinary tract infection type: site unspecified Hematuria presence: with hematuria Qualified Code(s): N39.0 - Urinary tract infection, site not specified Narrative: secondary to den, treated with diflucan
[2017-07-11 08:18] VITALS: BP 158/76
[2017-07-11] MEDS: INSULIN LISPRO 100 UNITS/ML VIAL SC SCH ×2 (08:23→12:06)
[2017-07-11] MEDS: busPIRone HCL 5 MG TABLET PO SCH (08:24)
[2017-07-11] MEDS: LEVOTHYROXINE SODIUM 50 MCG TABLET PO SCH (08:24)
[2017-07-11] MEDS: sitaGLIPtin PHOSPHATE 50 MG TABLET PO SCH (08:25)
[2017-07-11] MEDS: QUEtiapine FUMARATE 25 MG TABLET PO SCH (08:25)
[2017-07-11] MEDS: LIOTHYRONINE SODIUM 5 MCG TABLET PO SCH (08:25)
[2017-07-11] MEDS: PYRIDOXINE HCL (VITAMIN B6) 25 MG TABLET PO SCH (08:25)
[2017-07-11] MEDS: carBAMazepine 200 MG TABLET PO SCH (08:25)
[2017-07-11] MEDS: Coenzyme Q10 100 MG PO SCH (08:25)
[2017-07-11] MEDS: METHENAMINE MANDELATE 1 GM TABLET PO SCH (08:25)
[2017-07-11] MEDS: PANTOPRAZOLE SODIUM 40 MG TABLET.EC PO SCH (08:26)
[2017-07-11] MEDS: PROPRANOLOL HCL 60 MG CAPSULE.SA PO SCH (08:28)
[2017-07-11] MEDS: Deferasirox [Jadenu] 360 MG PO SCH (08:28)
[2017-07-11] MEDS: PHENYTOIN SODIUM EXTENDED 100 MG CAPSULE PO SCH (08:28)
[2017-07-11] MEDS: CALCIUM POLYCARBOPHIL 625 MG TABLET PO SCH ×2 (08:28→12:37)
[2017-07-11] MEDS: SACCHAROMYCES BOULARDII 250 MG CAPSULE PO SCH (08:28)
--- NOTE | 2017-07-11 15:28 | DS ---
(1) Acute renal failure Problem: Resolved Qualifiers: Acute renal failure type: unspecified Qualified Code(s): N17.9 - Acute kidney failure, unspecified (2) Metabolic acidosis Problem: Resolved (3) Urethral stricture Problem: Chronic Qualifiers: Urethral stricture sex-location: male urethra-bulbous (4) Urethral stenosis Problem: Chronic (5) UTI (urinary tract infection) Problem: Acute Qualifiers: Urinary tract infection type: site unspecified Hematuria presence: with hematuria Qualified Code(s): N39.0 - Urinary tract infection, site not specified (6) Vomiting and diarrhea Problem: Acute (7) Type 2 diabetes mellitus Problem: Chronic Description of Stay: Marc is a 62 yo male with diabetes and known urethral stricture. He was admitted with acute renal failure with creatinine approximately 4. He had recently been hospitalized for diabetic ketoacidosis and started on metformin. Following discharge he had been having diarrhea and vomiting. It was suspected that this was from metformin or gastroenteritis. It was also thought that this caused dehydration and acute prerenal failure. He was initially treated with IVFs but creatinine actually worsened. He had a renal ultrasound that did not show any hydronephrosis, but with his history of urethral stricture urology was consulted and a morales catheter was placed. There was pus in his bladder and a lot of urinary sediment. Culture was obtained that ultimately grew den. He was treated with diflucan. Creatinine returned to normal several days after placing morales catheter. He was weak and therapy was consulted. Urology recommended the morales remain for 1-2 weeks to dilate urethra. Discharge planning looked into nursing facilities for discharge as he was unable to return to [facility]. We were unable to find a facility that would accept Marc due to his extra medical and social needs due to morales catheter cares, cognitive impairment, and weakness. With time he reached his 1-2 weeks of morales placement. I discussed the case with Dr. Marquez at [facility] who specializes in urethraplasty. He requested the morales be removed and to monitor urinary output without catheter and to follow up with him as an outpatient. The catheter was removed and Marc was able to urinate on his own. His strength was improved and he was re-evaluated by [facility]. Now that he was stronger and his morales was gone [facility] accepted him back to his original housing. We will discontinue the metformin as it possible caused vomiting and diarrhea. Will rx januvia. He will follow up with Dr. Marquez for consideration for urethroplasty. He has completed treatment for candidal UTI. Procedures Performed: see notes below List Procedures: Intraoperative Morales Catheter placement 06/28/17 Discharge Disposition: [facility] Disposition: Other health care facility Condition: Fair Discharge Activity: Activity as tolerated Discharge Diet: Consistent carbs Referrals: Branden Goyal DO [Staff Physician] - One Week Problem Oriented Discharge Instructions to Patient/Family: Acute Kidney Injury Additional Patient Instructions (free text): Please schedule TCM appointment. Thank you! Marixa @ [phone]. Check blood sugars twice a day. F/U with Dr Marquez as scheduled on 08/07/17. Follow up appointment with Dr. Brink on 07/25/17 at 1:30pm. [facility] set up at discharge. Prescriptions (Any new or edited meds): sitaGLIPtin PHOSPHATE [Januvia] 100 mg PO DAILY #30 tab Complete Home Medications List: Complete Home Medication List: Carbamazepine [Carbatrol] 400 mg PO BID 04/14/13 Docusate Sodium [Stool Softener] 100 mg PO BID 04/14/13 Folic Acid 1 mg PO DAILY 04/14/13 PARoxetine HCL [Paxil] 60 mg PO HS 04/14/13 Phenytoin Sodium Extended [Dilantin] 200 mg PO BIDWM 04/14/13 Atorvastatin Calcium [Lipitor] 40 mg PO HS 11/25/14 Buspirone HCl 15 mg PO BID 11/25/14 Omeprazole [Prilosec] 40 mg PO BID 11/25/14 QUEtiapine FUMARATE [Seroquel] 25 mg PO QAM 11/25/14 Doxepin HCl [Sinequan] 20 mg PO HS #60 cap 11/07/15 Propranolol HCl [Inderal LA] 120 mg PO DAILY #30 cap 11/07/15 QUEtiapine FUMARATE [Seroquel] 75 mg PO HS 03/10/16 Levothyroxine Sodium [Synthroid] 50 mcg PO DAILY@0700 tablet 03/15/16 Methenamine Mandelate [Urex] 1 gm PO BID tablet 03/15/16 Alendronate Sodium [Fosamax] 70 mg PO .WEEKLY 06/18/17 Deferasirox [Jadenu] 360 mg PO BID 06/18/17 Lisinopril/Hydrochlorothiazide [Lisinopril-Hctz 10-12.5 mg Tab] 5 mg PO DAILY Calcium Polycarbophil [Fiber Laxative] 1,250 mg PO TID 06/19/17 Ergocalciferol (Vitamin D2) [Vitamin D2] 50,000 unit PO .WEEKLY 06/19/17 Liothyronine Sodium [Cytomel] 5 mcg PO DAILY 06/19/17 Multivitamin [One Daily Multivitamin] 1 cap PO DAILY 06/19/17 Pyridoxine HCl [Vitamin B-6] 50 mg PO DAILY 06/19/17 Ubidecarenone [Coenzyme Q10] 100 mg PO DAILY 06/19/17 Calcium Polycarbophil [Fibercon] 625 mg PO TID 06/26/17 Deferasirox [Jadenu] 360 mg PO BID 06/27/17 sitaGLIPtin PHOSPHATE [Januvia] 100 mg PO DAILY #30 tab 07/11/17
== END 2017-07-11 16:06 | disposition home or self-care (01) | DRG 683 ==
LOC: ER 14:50 → MS 18:23 → OBSVTOIN 06-27 10:14
PROVIDERS: ADMIT Family Medicine; ATTEND Family Medicine
PROC: 30263N1 (ICD-10-PCS; 2017-06-27)
PROC: 0T7D8ZZ Dilation of Urethra, Via Natural or Artificial Opening Endoscopic (ICD-10-PCS; principal; 2017-06-28)
PROC: 0T9B80Z Drainage of Bladder with Drainage Device, Via Natural or Artificial Opening Endoscopic (ICD-10-PCS; 2017-06-28)
PROC: 4A033R1 Measurement of Arterial Saturation, Peripheral, Percutaneous Approach (ICD-10-PCS; 2017-07-02)
DX: N17.9 Acute kidney failure, unspecified (principal); D61.9 Aplastic anemia, unspecified; E87.2 Acidosis; N39.0 Urinary tract infection, site not specified; N35.9 Urethral stricture, unspecified; N26.1 Atrophy of kidney (terminal); A08.4 Viral intestinal infection, unspecified; E86.0 Dehydration; G40.909 Epilepsy, unspecified, not intractable, without status epilepticus; D46.9 Myelodysplastic syndrome, unspecified; F79 Unspecified intellectual disabilities; I10 Essential (primary) hypertension; E78.5 Hyperlipidemia, unspecified; E11.9 Type 2 diabetes mellitus without complications; K21.9 Gastro-esophageal reflux disease without esophagitis
CPT/HCPCS: 36415; 52281; 71045; 76770; 80048; 80053; 82009; 82140; 82800; 82947; 83605; 84100; 84550; 85007; 85025; 86850; 86900; 86902; 87040; 87086; 87106; 87400; 87493; 97116; 97163; 97530; 99285; G0378; P9016

== ENCOUNTER 2017-07-12 13:22 | Emergency (ER) | payer MEDICARE, MEDICAID ==
[2017-07-12] MEDS ORDERED: ONDANSETRON HCL/PF 2 MG/ML VIAL ONE (13:33)
[2017-07-12] MEDS ORDERED: ONDANSETRON HCL/PF 2 MG/ML VIAL IV ONE (13:33)
[2017-07-12 14:45] LABS: Hematocrit 27.6 % (42.0-52.0); Hemoglobin 8.7 gm/dL (13.5-18.0)
[2017-07-12 15:04] LABS: Anion Gap 20.6 mmol/L (6.8-13.8); BUN/Creatinine Ratio 23.2 (9.0-21.6); Carbon Dioxide 19.7 mmol/L (24-32.6); Estimated Creat Clear 63.3; Potassium 4.3 mmol/L (3.4-4.6)
[2017-07-12 15:05] LABS: Calcium * 8.4 mg/dL (7.9-10.9)
[2017-07-12] MEDS ORDERED: PHENYTOIN SODIUM IV ONE (16:00)
[2017-07-12] MEDS ORDERED: NORMAL SALINE IV ONE (16:00)
[2017-07-12 17:27] VITALS: BP 141/71
--- NOTE | 2017-07-12 17:38 | ERNOTE ---
Neuro HPI ER Record Date of Service: 07/12/17 Presenting Symptoms: other - seizure Time Seen by Provider: 07/12/17 13:25 Source: patient, EMS Exam Limitations: physical impairment Immunizations: IMMUNIZATION HX Immunizations Up to Date Yes History of Influenza Vaccine Yes Hx Pneumococcal Vaccination Yes Allergies/Adverse Reactions: Allergies Allergy/AdvReac Type Severity Reaction Status Date / Time codeine [Codeine] Allergy Unknown Verified 06/29/17 16:35 hydrocodone [Hydrocodone] Allergy Unknown Verified 06/29/17 16:35 morphine Allergy Unknown Verified 06/29/17 16:35 NSAIDS (Non-Steroidal Allergy Unknown Verified 06/29/17 16:35 Anti-Inflamma Opioids - Morphine Analogues Allergy Unknown Verified 06/29/17 16:35 [Opioids-Morphine & Related] oxycodone [Oxycodone] Allergy Unknown Verified 06/29/17 16:35 quinine Allergy Unknown Verified 06/29/17 16:35 risperidone [From Risperdal] Allergy Unknown Verified 06/29/17 16:35 thioridazine HCl Allergy Unknown Verified 06/29/17 16:35 [From Mellaril] aspirin AdvReac Mild REFLUX Verified 06/29/17 16:35 Sulfa (Sulfonamide AdvReac Mild rash Verified 06/29/17 16:35 Antibiotics) [Sulfa(Sulfonamide Antibiotics)] sulfamethoxazole AdvReac Mild RASH Verified 06/29/17 16:35 [From Bactrim] trimethoprim [From Bactrim] AdvReac Mild RASH Verified 06/29/17 16:35 Home Medications: HOME MEDICATIONS Carbamazepine [Carbatrol] 400 mg PO BID 04/14/13 [Last Taken 06/26/17 10:00 400 mg] Docusate Sodium [Stool Softener] 100 mg PO BID 04/14/13 [Last Taken 06/25/17 10: 00] Folic Acid 1 mg PO DAILY 04/14/13 [Last Taken 06/26/17 08:00] PARoxetine HCL [Paxil] 60 mg PO HS 04/14/13 [Last Taken 06/25/17 22:00] Phenytoin Sodium Extended [Dilantin] 200 mg PO BIDWM 04/14/13 [Last Taken 08:00] Atorvastatin Calcium [Lipitor] 40 mg PO HS 11/25/14 [Last Taken 06/25/17 22:00] Buspirone HCl 15 mg PO BID 11/25/14 [Last Taken 06/26/17 10:00] Omeprazole [Prilosec] 40 mg PO BID 11/25/14 [Last Taken 06/26/17 08:00] QUEtiapine FUMARATE [Seroquel] 25 mg PO QAM 11/25/14 [Last Taken 06/26/17 08:00] Doxepin HCl [Sinequan] 20 mg PO HS #60 cap 11/07/15 [Last Taken 06/25/17 22:00] Propranolol HCl [Inderal LA] 120 mg PO DAILY #30 cap 11/07/15 [Last Taken 08:00] QUEtiapine FUMARATE [Seroquel] 75 mg PO HS 03/10/16 [Last Taken 06/25/17 22:00] Levothyroxine Sodium [Synthroid] 50 mcg PO DAILY@0700 tablet 03/15/16 [Last Taken 06/26/17 07:00] Methenamine Mandelate [Urex] 1 gm PO BID tablet 03/15/16 [Last Taken 06/26/17 08:00] Alendronate Sodium [Fosamax] 70 mg PO .WEEKLY 06/18/17 [Last Taken Unknown] Deferasirox [Jadenu] 360 mg PO BID 06/18/17 [Last Taken 06/26/17 08:00] Lisinopril/Hydrochlorothiazide [Lisinopril-Hctz 10-12.5 mg Tab] 5 mg PO DAILY [Last Taken 06/26/17 08:00] Calcium Polycarbophil [Fiber Laxative] 1,250 mg PO TID 06/19/17 [Last Taken Unknown] Ergocalciferol (Vitamin D2) [Vitamin D2] 50,000 unit PO .WEEKLY 06/19/17 [Last Taken Unknown] Liothyronine Sodium [Cytomel] 5 mcg PO DAILY 06/19/17 [Last Taken 06/26/17 08:00 ] Multivitamin [One Daily Multivitamin] 1 cap PO DAILY 06/19/17 [Last Taken 12:00] Pyridoxine HCl [Vitamin B-6] 50 mg PO DAILY 06/19/17 [Last Taken 06/26/17 08:00] Ubidecarenone [Coenzyme Q10] 100 mg PO DAILY 06/19/17 [Last Taken 06/26/17 08:00 ] Calcium Polycarbophil [Fibercon] 625 mg PO TID 06/26/17 [Last Taken 06/26/17 12: 00] Deferasirox [Jadenu] 360 mg PO BID 06/27/17 [Last Taken Unknown] sitaGLIPtin PHOSPHATE [Januvia] 100 mg PO DAILY #30 tab 07/11/17 [Last Taken Unknown] - History of Present Illness Narrative: Patient presents from symptoms c/w seizure. [facility] He has a history of a seizure disorder. He did not take his seizure medications last day. Had what sounds like a seizure. Was post ictal and combative per EMS and on arrival here was nearly back to normal. He also appears to have bit his tongue. He tells me his tongue hurts. Denies other pains. No other trauma. Onset: sudden onset - Character of Deficits New weakness: Present: other - no unilateral weakness noted. Associated Symptoms: Denies: fever/chills Prior Treament: Reports: recently seen, recently hospitalized Review of Systems - Narrative Narrative: Post-ictal and baseline problems make ROS very difficult to obtain - Review of Systems Respiratory: Absent: shortness of breath Cardiology: Absent: chest pain Gastrointestinal/Abdominal: Absent: abdominal pain Neurological: Absent: weakness - Patient's Past Medical History Patient History - Medical: Anemia, Anxiety, Arthritis, GERD, Hypothyroidism, Osteoarthritis, Seizures, Other Patient History - Cardiac/Respiratory: No pertinent hx, Hypertension, Hyperlipidemia Patient History - Cancer: No Hx of Cancer Patient History - Surgical Procedures: Colonoscopy, EGD Patient History - Other: None - Family History Mother Family History - Medical: Family History - Cardiac/Respiratory: Coronary Heart Disease, Hypertension, Hyperlipidemia Family History - Cancer: No pertinent family hx Father Family History - Medical: , No pertinent hx Family History - Cardiac/Respiratory: Hypertension Family History - Cancer: No pertinent family hx Sister Family History - Cardiac/Respiratory: Aneurysm - Social History Living Situations: assisted living Abuse History: No History of abuse Psych History: Hx of Anxiety Smoking Status: Never smoker Alcohol Use: none Drug Use: none - Immunizations Immunizations Up to Date: Yes Hx Pneumococcal Vaccination: Yes History of Influenza Vaccine: Yes Physical Exam - Physical Exam General Appearance: Present: alert, no apparent distress Head Exam: Present: normal inspection, no evidence of injury Eye Exam: Normal inspection: bilateral, PERRL: bilateral Ears, Nose, Throat: Present: other - appears to be a small bite on his tonghe, now not actively bleeding. Absent: pharyngeal erythema, dry mucous membranes Neck: Present: normal inspection, other - trachea midline Respiratory: Present: no respiratory distress, normal breath sounds, lungs clear Cardiovascular/Chest: Present: regular rate, rhythm Gastrointestinal/Abdominal: Present: normal bowel sounds, nontender, soft Back Exam: Absent: CVA tenderness (R), CVA tenderness (L) Extremity Exam: Present: other - no deformity Neurological Exam: Present: other - no acute unialteral focal motor or sensory deficits found. No findings of acute stroke found Skin Exam: Present: normal color, warm/dry ED Progress - Results and Orders Patient's Lab Results:: I have reviewed the patient's lab results. - Vital Signs Patient's Vital Signs:: I have reviewed the patient's vital signs. Vital Signs: Vital Signs 07/12/17 07/12/17 07/12/17 13:24 13:30 14:49 Temperature 36.5 C 36.5 C Pulse Rate 96 91 77 Respiratory 18 18 8 L Rate Blood Pressure 148/85 148/85 144/81 O2 Sat by Pulse 95 95 94 Oximetry 07/12/17 07/12/17 15:40 16:46 Temperature Pulse Rate 84 67 Respiratory 12 11 L Rate Blood Pressure 155/81 141/85 O2 Sat by Pulse 96 98 Oximetry - Progress/Reassessment Chief Complaint: Seizure Activity Progress Note-Subjective: 07/12/17 17:36 Apparent seizure with Hx of seizure, not taking meds with low blood levels. Given oral carbamazepine and IV Dilantin, no further Sz. Hx of Seizure and reasons to have a breakthrough seizure. BS 224, nothign to suggest DKA or worsening anemia, HGB unchanged from prior. Case management involved. [facility] will take patient back and observe. I discussed warning signs and reasons to return as well as the need for close f/u. Departure Clinical Impression: Seizure - Departure Disposition: Home self-care Condition: Stable Instructions: Epilepsy, Krsc-uh-Fies Additional Instructions: Take medication s as directed. Follow-up with your doctor Saturday for a re- check. Return here for any seizure activity, pain, bleeding or if your condition worsens or changes in any way. Referrals: Umberto Brink DO [Primary Care Provider] -
== END 2017-07-12 18:21 | disposition home or self-care (01) ==
LOC: ER 13:22
DX: R56.9 Unspecified convulsions (principal)
CPT/HCPCS: 36415; 80048; 80156; 80185; 85014; 85018; 96365; 96375; 99283; J2405